=== PATIENT | female | born 1945 | race Caucasian/White ===

== ENCOUNTER 2020-04-15 09:50 | Outpatient (CLI) | payer MEDICARE, SELFPAY ==
[2020-04-15 10:34] LABS: Hemoglobin A1C 6.2 % (<5.7)
[2020-04-15 10:37] LABS: Blood Urea Nitrogen 13 mg/dL (7-17); Calcium 9.1 mg/dL (8.4-10.2); Carbon Dioxide 29 mmol/L (22-30); Chloride 105 mmol/L (98-107); Estimated Glomerular Filt Rate 54; Glucose 105 mg/dL (65-105); Potassium 4.4 mmol/L (3.4-5.0); Sodium 139 mmol/L (137-145)
== END 2020-04-15 09:51 | disposition home or self-care (01) ==
PROVIDERS: PCP Internal Medicine; Visit Provider Nurse Practitioner
DX: R73.03 Prediabetes (principal); E03.9 Hypothyroidism, unspecified
CPT/HCPCS: 36415; 80048; 83036; 84443

== ENCOUNTER 2020-05-13 14:37 | Outpatient (CLI) | payer MEDICARE, SELFPAY ==
--- NOTE | ~2020-05-13 | US_ITS ---
EXAMINATION: US soft tissue chest EXAM DATE: 05/13/2020 15:18 INDICATION: Left neck lump, palpable abnormality. TECHNIQUE: Multiple grayscale and Doppler images of the symptomatic left neck soft tissue region were obtained (by a technologist who performed the scan) and subsequently reviewed. There is no prior st udy for comparison. FINDINGS: No focal mass, or abscess is identified in the left neck supraclavicular region aside from a small ly mph node measuring 1.2 x 0.6 x 1.0 cm, with expected fatty hilum, is likely reactive. IMPRESSION: Unremarkable ultrasound exam. Reviewed, dictated and finalized at location A.
== END 2020-05-13 14:38 | disposition home or self-care (01) ==
LOC: ANHIMG 14:44
PROVIDERS: PCP Internal Medicine; Visit Provider Nurse Practitioner
DX: R22.2 Localized swelling, mass and lump, trunk (principal)
CPT/HCPCS: 76604

== ENCOUNTER 2020-11-15 08:15 | Outpatient (CLI) | payer MEDICARE, SELFPAY ==
[2020-11-15 09:11] LABS: Alanine Aminotransferase 29 U/L (4-35); Albumin Level 3.9 g/dL (3.5-5.1); Alkaline Phosphatase 70 U/L (38-126); Anion Gap 8 mmol/L (8-16); Aspartate Amino Transferase 28 U/L (14-36); Bilirubin,Total 0.5 mg/dL (0.2-1.3); Blood Urea Nitrogen 21 mg/dL (7-17); Calcium 8.7 mg/dL (8.4-10.2); Carbon Dioxide 28 mmol/L (22-30); Chloride 104 mmol/L (98-107); Cholesterol 191 mg/dL (0-200); Estimated Glomerular Filt Rate 49; Glucose 102 mg/dL (65-105); HDL Direct 39 mg/dL; Potassium 4.1 mmol/L (3.4-5.0); Sodium 140 mmol/L (137-145); Triglycerides 159 mg/dL (<150)
[2020-11-15 09:21] LABS: LDL Cholesterol Direct 128 mg/dL
[2020-11-15 10:33] LABS: Vitamin D 25 Hydroxy 22.3 ng/mL
== END 2020-11-15 08:16 | disposition home or self-care (01) ==
PROVIDERS: PCP Internal Medicine; Visit Provider Nurse Practitioner
DX: E03.9 Hypothyroidism, unspecified (principal); R73.03 Prediabetes; E78.5 Hyperlipidemia, unspecified; E55.9 Vitamin D deficiency, unspecified
CPT/HCPCS: 36415; 80053; 80061; 82306; 83036; 84443

== ENCOUNTER 2021-06-13 09:03 | Outpatient (CLI) | payer MEDICARE, SELFPAY ==
[2021-06-13 09:46] LABS: Basophils Percent Auto 0.4 % (0.2-1.2); Eosinophils Absolute Auto 0.2 K/mm3 (0-0.3); Hematocrit 43.2 % (37.0-47.0); Hemoglobin 13.7 g/dL (12.0-15.0); Immature Granulocyte Absolute 0.03 K/mm3 (0.00-0.031); Immature Granulocyte Percent A 0.4 % (0-0.5); Lymphocytes Absolute Auto 2.89 K/mm3 (0.9-3.2); Lymphocytes Percent Auto 33.9 % (18.3-44.2); Mean Corpuscular HGB Conc 31.7 g/dl (32-36); Mean Corpuscular Hemoglobin 28.4 pg (26-34); Mean Corpuscular Volume 89.6 fl (80-100); Monocytes Absolute Auto 0.5 K/mm3 (0.1-0.6); Monocytes Percent Auto 6.1 % (2.6-8.5); Neutrophils Absolute Auto 4.9 K/mm3 (1.3-6.7); Neutrophils Percent Auto 57.2 % (45.5-73.1); Platelet Count Result 242 k/mm3 (150-375); Red Blood Count 4.82 M/mm3 (4.2-5.4); Red Cell Distribution Width 14.3 % (11.5-14.5); White Blood Count 8.5 K/mm3 (4.5-10.0)
[2021-06-13 11:08] LABS: Hemoglobin A1C 6.2 % (<5.7)
[2021-06-13 11:09] LABS: Anion Gap 10 mmol/L (8-16); Blood Urea Nitrogen 13 mg/dL (7-17); Calcium 9.4 mg/dL (8.4-10.2); Carbon Dioxide 28 mmol/L (22-30); Chloride 100 mmol/L (98-107); Cholesterol 211 mg/dL (0-200); Estimated Glomerular Filt Rate > 60; Glucose 104 mg/dL (65-110); HDL Direct 43 mg/dL; Potassium 3.9 mmol/L (3.4-5.0); Sodium 138 mmol/L (137-145); Triglycerides 151 mg/dL (<150)
[2021-06-13 11:19] LABS: LDL Cholesterol Direct 122 mg/dL
== END 2021-06-13 09:04 | disposition home or self-care (01) ==
PROVIDERS: PCP Internal Medicine; Visit Provider Nurse Practitioner
DX: R73.03 Prediabetes (principal); E03.9 Hypothyroidism, unspecified; E78.5 Hyperlipidemia, unspecified; D72.829 Elevated white blood cell count, unspecified
CPT/HCPCS: 36415; 80048; 80061; 83036; 84443; 85025

== ENCOUNTER 2021-06-27 09:25 | Outpatient (CLI) | payer MEDICARE, SELFPAY ==
--- NOTE | ~2021-06-27 | US_ITS ---
EXAMINATION: US abdomen complete DATE: 06/27/2021 09:55 INDICATION: Unspecified abdominal pain TECHNIQUE: Multiple grayscale and Doppler ultrasound images of the abdomen were obtained. COMPARISON: 02/01/2009 FINDINGS: Bowel gas obscures visualization of the pancreas. The visualized portions of the pancreas a re unremarkable. The liver demonstrates increased echogenicity, heterogenous echotexture, and decreas ed through transmission. No surface nodularity. Normal hepatopetal flow in the main portal vein. Ston es are present in the nondistended gallbladder. There is no gallbladder wall thickening or pericholec ystic fluid. The normal common bile duct measures 4 mm. There was no sonographic Martinez sign. The vis ualized portions of the aorta and inferior vena cava are normal. The right kidney measures 10.1 x 4.4 x 4.8 cm. The left kidney measures 10.4 x 5.2 x 4.7 cm. The kidn eys demonstrate normal parenchymal echogenicity. There is no hydronephrosis. The spleen measures 9.2 cm. And contains multiple calcifications, likely old granulomatous disease. IMPRESSION: 1. Cholelithiasis without evidence of cholecystitis. 2. Diffuse hepatic steatosis. Reviewed, dictated and finalized at location B.
== END 2021-06-27 09:26 | disposition home or self-care (01) ==
LOC: ANHIMG 09:27
PROVIDERS: PCP Internal Medicine; Visit Provider Nurse Practitioner
DX: R10.9 Unspecified abdominal pain (principal); K80.20 Calculus of gallbladder without cholecystitis without obstruction; K76.0 Fatty (change of) liver, not elsewhere classified
CPT/HCPCS: 76700

== ENCOUNTER 2021-07-12 00:26 | Day surgery (SDC) | payer MEDICARE, SELFPAY ==
[2021-06-22 14:20] VITALS: BMI 35.3
[2021-07-12 09:33] VITALS: BP 167/91; PULSE 93; RESP 18; TEMP 35.9; O2SAT 99; BMI 34.7
--- NOTE | 2021-07-12 09:42 | WPDANESEPPF ---
Anes - Initial Pre Proc Eval Procedure: Operation Date: 07/12/21 10:00 Proposed Procedures p Screening Colonoscopy - Kenney Erwin MD Date/Time: 07/12/21 09:42 Surgeon: Kenney Erwin MD Pre Op Diagnosis: neoplasm screening Patient Data Age: 75 Gender: F Height: 1.57 m Weight: 86.2 kg Last Vital Signs Temp 35.9 C L 07/12/21 09:33 Pulse 93 07/12/21 09:33 Resp 18 07/12/21 09:33 BP 167/91 H 07/12/21 09:33 Pulse Ox 99 07/12/21 09:33 Allergies Allergy/AdvReac Type Severity Reaction Status Date / Time No Known Allergies Allergy Verified 07/12/21 09:32 Home Medications Medication Instructions Recorded Confirmed Type diltiazem HCl 60 mg 60 mg PO Q12H 12/08/19 06/22/21 History capsule,extended release 12 hr rivaroxaban 20 mg tablet 20 mg PO DAILY 12/08/19 06/22/21 History levothyroxine 100 mcg tablet See Rx Instructions .ROUTE 03/29/21 06/22/21 Rx .COMPLEX #90 tablet cholecalciferol (vitamin D3) 50 50 mcg PO DAILY 05/29/21 06/22/21 History mcg (2,000 unit) capsule Patient hx anesthesia problems: none Family hx anesthesia problems: none PMFSH Past Medical History Medical History Adult hypothyroidism Atrial fibrillation Capsular contracture of breast implant, initial encounter Hx of [facility] use of blood thinners Hyperlipidemia, unspecified Hypersomnia ILD (interstitial lung disease) Lump in chest Need for vaccination with 13-polyvalent pneumococcal conjugate vaccine On ocean transportation intermediary drug therapy RD (obstructive sleep apnea) Pacemaker Postmenopausal Pre-diabetes Pulmonary infiltrates Screening for breast cancer Sick sinus syndrome Statin intolerance Surgical History Surgical History History of bilateral breast implants Family History Family History Mother Diabetes mellitus Family history of osteoporosis Family history of chronic obstructive pulmonary disease Family history of diabetes mellitus in first degree relative Father Cerebrovascular accident Family history of Hodgkin's lymphoma Sibling Family history of malignant neoplasm of breast Family history of malignant neoplasm Grandparent Family history of Parkinson's disease Social History Social History (Updated 05/29/21 @ 12:42 by Eneida Zuñiga MA) Smoking status: Never smoker Second hand tobacco smoke exposure: Yes Alcohol intake: current Alcohol use details: Social Substance use type: does not use Gender identity (if verbalized by the patient): Female Anes - Eval Final PreProcedure Day of Procedure 07/12/21 09:42 Patient weight: obese Heart: regular rate and rhythm Lungs: clear to auscultation and normal air movement Airway: Mallampati scale class II Neurological: alert and oriented Last oral intake: >/= 8 hours ASA classification: III Emergent: no Anesthetic plan: proceed Anesthesia type and monitoring: general GIVS Informed Consent: The patient's anesthetic plan and its attendant risks and benefits were discussed with the patient/family/POA. Questions were solicited and answers provided to the satisfaction of the patient/family/POA.
[2021-07-12] MEDS: LACTATED RINGERS 1,000 ML 150 ML IV CONT (09:50)
--- NOTE | 2021-07-12 10:45 | PM.HPGS ---
History of Present Illness History of Present Illness Consent: Risks, benefits, and alternatives have been discussed and questions answered. Patient agrees to proceed with procedure. Chief complaint: neoplasm screening Narrative: Thelma Lobo is a 75 year old female with last colonoscopy 10 years ago. Review of Systems Constitutional: Constitutional: Denies headache(s) and Denies weakness Eyes: Eyes: Denies blurry vision ENT: Reports Normal hearing present, Denies headache(s) and Denies neck pain Cardiovascular: Cardiovascular: Denies chest pain and Denies dyspnea Respiratory: Respiratory: Denies dyspnea Gastrointestinal: Gastrointestinal: Reports no additional gastrointestinal complaints Genitourinary: Genitourinary: Denies dysuria Musculoskeletal: Musculoskeletal: Denies neck pain Integumentary/Breasts: Skin/Breast: Denies dry skin Neurologic: Reports Normal hearing present, Denies headache(s) and Denies weakness Psychiatric: Psychiatric: Denies anxiety Endocrine: Endocrine: Denies change in body appearance Hematologic/Lymphatic: Hematologic/Lymphatic: Denies easy bleeding Allergic/Immunologic: Allergic/Immunologic: Denies urticaria PMFSH Past Medical History Medical History Adult hypothyroidism Atrial fibrillation Capsular contracture of breast implant, initial encounter 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 Hyperlipidemia, unspecified Hypersomnia ILD (interstitial lung disease) Lump in chest Need for vaccination with 13-polyvalent pneumococcal conjugate vaccine On senior living drug therapy RD (obstructive sleep apnea) Pacemaker Postmenopausal Pre-diabetes Pulmonary infiltrates Screening for breast cancer Sick sinus syndrome Statin intolerance Surgical History Surgical History History of bilateral breast implants Family History Family History Mother Diabetes mellitus Family history of osteoporosis Family history of chronic obstructive pulmonary disease Family history of diabetes mellitus in first degree relative Father Cerebrovascular accident Family history of Hodgkin's lymphoma Sibling Family history of malignant neoplasm of breast Family history of malignant neoplasm Grandparent Family history of Parkinson's disease Social History Social History (Updated 05/29/21 @ 12:42 by Eneida Zuñiga MA) Smoking status: Never smoker Second hand tobacco smoke exposure: Yes Alcohol intake: current Alcohol use details: Social Substance use type: does not use Gender identity (if verbalized by the patient): Female Meds Home Medications and Allergies Home Medications Medication Instructions Recorded Confirmed Type diltiazem HCl 60 mg 60 mg PO Q12H 12/08/19 06/22/21 History capsule,extended release 12 hr rivaroxaban 20 mg tablet 20 mg PO DAILY 12/08/19 06/22/21 History levothyroxine 100 mcg tablet See Rx Instructions .ROUTE 03/29/21 06/22/21 Rx .COMPLEX #90 tablet cholecalciferol (vitamin D3) 50 50 mcg PO DAILY 05/29/21 06/22/21 History mcg (2,000 unit) capsule Allergies Allergy/AdvReac Type Severity Reaction Status Date / Time No Known Allergies Allergy Verified 07/12/21 09:32 Vital Signs Vital Signs - 24 hr 07/12/21 09:33 Temperature 96.7 F L Pulse Rate 93 Respiratory Rate 18 Blood Pressure 167/91 H Pulse Oximetry 99 Exam Const: General: comfortable and no acute distress HENMT: General nose exam: Normal nares present Eyes: General: appearance normal, both eyes and all related structures Neck: Neck: no JVD Resp: Auscultation: clear to auscultation bilaterally Cardio: Rate: regular rate Rhythm: regular rhythm GI: Inspection: non-distended GI Palp: Yes Soft to palpation Skin: General skin exam: normal color Neuro: General: gait normal Speech
[2021-07-12 11:06] VITALS: BP 114/64; PULSE 82; RESP 13; O2SAT 95
[2021-07-12 11:16] VITALS: BP 118/71; PULSE 96; RESP 15; O2SAT 96
[2021-07-12 11:26] VITALS: BP 127/81; PULSE 97; RESP 15; O2SAT 96
== END 2021-07-12 11:38 | disposition home or self-care (01) ==
PROVIDERS: PCP Internal Medicine; Visit Provider Internal Medicine Gastroenterology
PROC: 0DJD8ZZ Inspection of Lower Intestinal Tract, Via Natural or Artificial Opening Endoscopic (ICD-10-PCS; CPT 45378; principal; 2021-07-12 10:00)
DX: Z12.11 Encounter for screening for malignant neoplasm of colon (principal); D12.4 Benign neoplasm of descending colon; K64.8 Other hemorrhoids; I48.91 Unspecified atrial fibrillation; E03.9 Hypothyroidism, unspecified; E78.5 Hyperlipidemia, unspecified; J84.9 Interstitial pulmonary disease, unspecified; G47.33 Obstructive sleep apnea (adult) (pediatric); Z95.0 Presence of cardiac pacemaker; R73.03 Prediabetes; Z79.01 Long term (current) use of anticoagulants; E66.9 Obesity, unspecified; Z68.34 Body mass index [BMI] 34.0-34.9, adult
CPT/HCPCS: 45385; 88305; J2704; J7120

== ENCOUNTER 2021-07-31 09:43 | Outpatient (CLI) | payer MEDICARE, SELFPAY ==
--- NOTE | ~2021-07-31 | DEXA_ITS ---
Bone Density Report Name: Thelma Lobo Age: 75 Sex: Female Ethnicity: White Date of : 1945 Indication: postmenopausal; height loss; Referring Provider: Misa Godwin Study: Bone densitometry was performed. Exam Date: July 31, 2021 Accession number: [id number] Bone Density: Region BMD T-score Z-score Classification AP Spine (L1, L2) 1.231 2.3 4.5 Normal Femoral Neck (Left) 0.814 -0.3 1.7 Normal Total Hip (Left) 1.005 0.5 2.3 Normal Total Hip Bilateral Avg 1.006 0.5 2.3 Normal Femoral Neck (Right) 0.777 -0.6 1.4 Normal Total Hip (Right) 1.005 0.5 2.3 Normal World Health Organization criteria for BMD impression classify patients as: Normal (T-score at or above -1.0), Osteopenia (T-score between -1.0 and -2.5), or Osteoporosis (T-score at or below -2.5). 10-year Fracture Risk: FRAX not reported because: All T-scores for Spine Total, Hip Total, Femoral Neck at or above -1.0 Previous Exams: Region Exam Age BMD T-score BMD Change BMD Change Date g/cm2 vs Baseline vs Previous AP Spine(L1, L2) 07/31/2021 75 1.231 2.3 0.078(6.8%)# 0.078(6.8%)# 04/09/2008 62 1.153 1.6 Total Hip(Left) 07/31/2021 75 1.005 0.5 0.055(5.8%)# 0.055(5.8%)# 04/09/2008 62 0.950 0.1 Total Hip(Right) 07/31/2021 75 1.005 0.5 0.031(3.2%)# 0.031(3.2%)# 04/09/2008 62 0.974 0.3 *Denotes significance at 95% confidence level, LSC for AP Spine = 0.022 g/cm2, LSC for Total Hip = 0.027 g/cm2 Clinical Information Provided by Patient: Has used the following medications: Vitamin D Patient maximum height was 62 Menopause Age: 55 No regular weight bearing exercise Drinks caffeinated beverages Onset of menses at age 13 Number of children 3 Impression: The patient has normal bone mass. No significant bone loss was observed. Discussion: BONE DENSITY IS ABOVE THE MINIMUM DESIRABLE LEVEL AT ALL SKELETAL SITES TESTED. This patient?s bone mineral density is above the minimum desirable level (T-score -1.0 or better) at all sites measured. The patient should follow a healthful lifestyle (good nutrition with adequate calcium and vitamin D, and appropriate weight-bearing exercise). Follow-Up: Consider repeating this study in 5 years or sooner if there is some new clinical indication. Reported by: CAROLYN on 07/31/2021 10:29:00 AM. Reviewed, dictated and finalized at location AKin HERRON
--- NOTE | ~2021-07-31 | MM_ITS ---
EXAMINATION: MM screening cristina BI w yulia HISTORY: Screening. Previous breast implant removal 2 years ago. TECHNIQUE: Craniocaudal and mediolateral oblique 3-D tomosynthesis images were obtained and synthetic 2-D images were generated. CAD analysis was submitted and interpreted. COMPARISON: No prior mammogram is available for comparison at this institution. BREAST PARENCHYMAL COMPOSITION: There are scattered areas of fibroglandular density. FINDINGS: There is distortion of both breasts, likely from previous implant removal. There is no evid ence of suspicious mass, calcification, or architectural distortion to suggest malignancy in either b reast. There has been no suspicious interval change. IMPRESSION: 1. No mammographic evidence of malignancy. 2. Recommend routine screening mammography in one year. BI-RADS Category 2: Benign finding(s). Reviewed, dictated and finalized at location A.
== END 2021-07-31 09:44 | disposition home or self-care (01) ==
PROVIDERS: PCP Internal Medicine; Visit Provider Nurse Practitioner
DX: Z12.31 Encounter for screening mammogram for malignant neoplasm of breast (principal); Z78.0 Asymptomatic menopausal state
CPT/HCPCS: 77063; 77067; 77080

== ENCOUNTER 2021-12-08 09:30 | Outpatient (CLI) | payer MEDICARE, SELFPAY ==
[2021-12-08 10:05] LABS: Alanine Aminotransferase 36 U/L (4-35); Albumin Level 4.3 g/dL (3.5-5.1); Alkaline Phosphatase 86 U/L (38-126); Anion Gap 7 mmol/L (8-16); Aspartate Amino Transferase 39 U/L (14-36); Bilirubin,Total 0.5 mg/dL (0.2-1.3); Blood Urea Nitrogen 13 mg/dL (7-17); Calcium 9.5 mg/dL (8.4-10.2); Carbon Dioxide 29 mmol/L (22-30); Chloride 104 mmol/L (98-107); Cholesterol 209 mg/dL (0-200); Estimated Glomerular Filt Rate 54; Glucose 112 mg/dL (65-110); HDL Direct 39 mg/dL; Potassium 3.9 mmol/L (3.4-5.0); Sodium 140 mmol/L (137-145); Triglycerides 178 mg/dL (<150)
[2021-12-08 10:16] LABS: LDL Cholesterol Direct 134 mg/dL
== END 2021-12-08 09:31 | disposition home or self-care (01) ==
LOC: ANHLAB 09:32
PROVIDERS: PCP Internal Medicine; Visit Provider Nurse Practitioner
DX: E03.9 Hypothyroidism, unspecified (principal); R73.03 Prediabetes; E78.5 Hyperlipidemia, unspecified
CPT/HCPCS: 36415; 80053; 80061; 83036; 84443

== ENCOUNTER 2022-06-13 08:41 | Outpatient (CLI) | payer MEDICARE, SELFPAY ==
[2022-06-13 09:40] LABS: Alanine Aminotransferase 27 U/L (6-35); Albumin Level 4.2 g/dL (3.5-5.1); Alkaline Phosphatase 74 U/L (38-126); Anion Gap 8 mmol/L (8-16); Aspartate Amino Transferase 30 U/L (14-36); Bilirubin,Total 0.5 mg/dL (0.2-1.3); Blood Urea Nitrogen 16 mg/dL (7-17); Calcium 9.1 mg/dL (8.4-10.2); Carbon Dioxide 31 mmol/L (22-30); Chloride 101 mmol/L (98-107); Estimated Glomerular Filt Rate 54; Glucose 96 mg/dL (65-110); Potassium 4.2 mmol/L (3.4-5.0); Sodium 140 mmol/L (137-145)
[2022-06-13 09:48] LABS: Hemoglobin A1C 5.8 % (<5.7)
== END 2022-06-13 08:42 | disposition home or self-care (01) ==
LOC: ANHLAB 08:45
PROVIDERS: PCP Internal Medicine; Visit Provider Internal Medicine
DX: R73.03 Prediabetes (principal); E78.5 Hyperlipidemia, unspecified; I48.91 Unspecified atrial fibrillation; E03.9 Hypothyroidism, unspecified
CPT/HCPCS: 36415; 80053; 83036; 84443

== ENCOUNTER 2022-10-25 01:58 | Day surgery (SDC) | payer MEDICARE, SELFPAY ==
[2022-10-09 10:58] VITALS: BMI 33.9
--- NOTE | 2022-10-09 11:22 | PC.NURSE ---
Report to the Outpatient Waiting Room, entrance under the green pavilion located off [facility], at time ___0700____ on date ___10/25/22____. Planned Procedure Time: ___0900 . Time changes happen often and if your time is changed the preop area will call you the afternoon before. - You and your visitor will be asked to self-screen and do not enter if you have any COVID symptoms. - Only one visitor is requested with a max of two and NO children visitors are allowed at this time. - The patient visitor may be requested to leave or wait in car when not with patient due to distancing restrictions. - A mask is optional within the hospital. Patients may have clear liquids (water, carbonated beverages, clear teas, apple juice) until 3 hours prior to surgery (0600 AM) with a maximum of 20 ounces. - No food from midnight until time of surgery - Infants may have breast milk until 4 hours before surgery, infant formula 6 hours prior to surgery. - Children will be allowed to drink immediately following surgery. If applicable, please bring a bottle or sippy cup to assist with drinking. Juice, water, soda, and popsicles are readily available. For infants on formula, please bring formula the day of surgery. Pacifiers are allowed. Take the following medications with a SIP of water the morning of surgery: _ATENOLOL, DILTIAZEM, LEVOTHYROXINE_ Medications to discontinue _XARELTO PER DR. JARQUIN'S INSTRUCTIONS_ Date to take last dose Please no make-up, nail [place] citizen, hairspray, perfume, deodorant, or body powder the day of surgery. No jewelry (including any body piercings) or valuables the day of surgery, leave them at home. Please take a shower or bath the night before, or the morning of, surgery with an antibacterial soap. Wear comfortable, loose fitting clothing. Children are encouraged to wear pajamas. - Jewelry must be removed prior to entering the operating room. Rings and piercings that are not removed may be cut off. - The hospital will not accept responsibility for valuables. - Please leave all valuables, including medications, at home the day of surgery. If you are going home after surgery, a licensed shuttle driver must drive you home. - NO public transportation without another adult if you receive anesthesia. - We recommend that an adult stay with you for 24 hours following discharge. - We also recommend that you do not drive, make important decision, drink alcoholic beverages, or take any drugs that were not prescribed by your health care provider for at least 24 hours after your discharge time. For Pediatric surgeries, we recommend two adults accompany the child home. Follow any additional instructions given to you from your surgeon. If you or anyone in your household have experienced Covid symptoms in the past week, please notify your surgeon or the nurse liaison at the phone number below for possible testing. Telephone instructions given to ____PT and asked if any additional questions and then verbalized understanding. Patient advised to call surgeon office or pre surgery nurse liaison [phone] if any additional questions.
--- NOTE | 2022-10-24 14:40 | PM.IMHP ---
H&P: HPI History of Present Illness Date/Time: 10/24/22 14:40 76-year-old female presents for removal of cervical polyp. This was noted on exam, was followed up with ultrasound which also revealed thickened endometrial cavity. She has had no bleeding or other symptomatology. No other issues or concerns at this time from a gynecologic standpoint. She has received cardiology clearance and given information on medications and when to stop/restart after procedure. Chief Complaint: 1. Endocervical polyp 2. 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 Hyperlipidemia, unspecified Hypersomnia ILD (interstitial lung disease) Lump in chest Need for vaccination with 13-polyvalent pneumococcal conjugate vaccine On data consultant drug therapy RD (obstructive sleep apnea) Pacemaker (~06/21/15) Postmenopausal Pre-diabetes Pulmonary infiltrates Screening for breast cancer Sick sinus syndrome Statin intolerance Surgical History Surgical History History of bilateral breast implants (~1974) History of cataract surgery History of radiofrequency ablation (RFA) procedure for cardiac arrhythmia Family History Family History Mother Diabetes mellitus Family history of osteoporosis Family history of chronic obstructive pulmonary disease Family history of diabetes mellitus in first degree relative Hypertension Father Cerebrovascular accident Family history of Hodgkin's lymphoma Sibling Family history of malignant neoplasm of breast sister--had 2 times, recurrent breast cancer Family history of malignant neoplasm Grandparent Family history of Parkinson's disease Social History Social History Smoking status: Never smoker Second hand tobacco smoke exposure: No Alcohol intake: current Alcohol use details: STATES MAYBE 2/MONTH IF THAT Substance use: never Substance use type: does not use Living arrangements: with family Additional living arrangements comments: Gender identity (if verbalized by the patient): Female Spiritual care concerns: No Meds Home Medications and Allergies Home Medications Medication Instructions Recorded Confirmed Type diltiazem HCl 60 mg 60 mg PO Q12H 12/08/19 10/09/22 History capsule,extended release 12 hr rivaroxaban 20 mg tablet (Xarelto) 20 mg PO DAILY 12/08/19 10/09/22 History atenolol 25 mg tablet 25 mg PO DAILY 12/12/21 10/09/22 History cholecalciferol (vitamin D3) 125 125 mcg PO DAILY 12/12/21 10/09/22 History mcg (5,000 unit) capsule levothyroxine 100 mcg tablet See Rx Instructions .Route 09/24/22 10/09/22 Rx .COMPLEX #90 tabs Allergies Allergy/AdvReac Type Severity Reaction Status Date / Time No Known Allergies Allergy Verified 10/09/22 10:56 Exam Const: General: cooperative, healthy appearing and comfortable Resp: Effort & Inspection: normal respiratory effort Auscultation: clear to auscultation bilaterally Cardio: Rate: regular rate Rhythm: regular rhythm GI: Inspection: normal to inspection Auscultation: normal bowel sounds : External Female Exam: normal external appearance Speculum Exam - Vagina: normal appearance of the vagina Speculum Exam - Cervix: normal appearance of the cervix ( with polyp noted) Bimanual exam- vagi
[2022-10-25] MEDS: ACETAMINOPHEN 500 MG TABLET 1000 MG PO (07:00)
[2022-10-25] MEDS: LACTATED RINGERS 1,000 ML 30 ML IV CONT (07:00)
[2022-10-25 07:15] VITALS: BP 137/73; PULSE 69; RESP 16; TEMP 36.7; O2SAT 98
--- NOTE | 2022-10-25 07:21 | WPDANESEPPF ---
Anes - Initial Pre Proc Eval Procedure: Operation Date: 10/25/22 09:00 Proposed Procedures p Hysteroscopy Dilation and Curettage with Polypectomy - Blair Zarate MD Date/Time: 10/25/22 07:21 Surgeon: Blair Zarate MD Pre Op Diagnosis: cervical polyp Patient Data Age: 76 Gender: F Height: 1.57 m Weight: 84.09 kg Allergies Allergy/AdvReac Type Severity Reaction Status Date / Time No Known Allergies Allergy Verified 10/25/22 07:56 Home Medications Medication Instructions Recorded Confirmed Type diltiazem HCl 60 mg 60 mg PO Q12H 12/08/19 10/09/22 History capsule,extended release 12 hr rivaroxaban 20 mg tablet (Xarelto) 20 mg PO DAILY 12/08/19 10/09/22 History atenolol 25 mg tablet 25 mg PO DAILY 12/12/21 10/09/22 History cholecalciferol (vitamin D3) 125 125 mcg PO DAILY 12/12/21 10/09/22 History mcg (5,000 unit) capsule levothyroxine 100 mcg tablet See Rx Instructions .Route 09/24/22 10/09/22 Rx .COMPLEX #90 tabs Patient hx anesthesia problems: none Family hx anesthesia problems: none Results Review: All pre-operative results and documents have been reviewed as part of the pre-operative evaluation. 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 Hyperlipidemia, unspecified Hypersomnia ILD (interstitial lung disease) Lump in chest Need for vaccination with 13-polyvalent pneumococcal conjugate vaccine On tank terminal gauger drug therapy RD (obstructive sleep apnea) Pacemaker (~06/21/15) Postmenopausal Pre-diabetes Pulmonary infiltrates Screening for breast cancer Sick sinus syndrome Statin intolerance Surgical History Surgical History History of bilateral breast implants (~1974) History of cataract surgery History of radiofrequency ablation (RFA) procedure for cardiac arrhythmia Family History Family History Mother Diabetes mellitus Family history of osteoporosis Family history of chronic obstructive pulmonary disease Family history of diabetes mellitus in first degree relative Hypertension Father Cerebrovascular accident Family history of Hodgkin's lymphoma Sibling Family history of malignant neoplasm of breast sister--had 2 times, recurrent breast cancer Family history of malignant neoplasm Grandparent Family history of Parkinson's disease Social History Social History Smoking status: Never smoker Second hand tobacco smoke exposure: No Alcohol intake: current Alcohol use details: STATES MAYBE 2/MONTH IF THAT Substance use: never Substance use type: does not use Living arrangements: with family Additional living arrangements comments: Gender identity (if verbalized by the patient): Female Spiritual care concerns: No Anes - Eval Final PreProcedure Day of Procedure 10/25/22 07:21 Patient weight: obese Heart: regular rate and rhythm Lungs: clear to auscultation Airway: Mallampati scale class II Neurological: alert and oriented Last oral intake: >/= 8 hours ASA classification: III Emergent: no Anesthetic plan: proceed Anesthesia type and monitoring: general GIVS and standard monitoring Results Review: All pre-operative results and documents have been reviewed as part of the pre-operative evaluation. Informed Consent: The patient's anesthetic plan and its attendant risks and benefits were discussed with the patient/family/POA. Questions were solicited and answ
--- NOTE | 2022-10-25 08:01 | WPDHPUPDATE1 ---
History and Physical Update Update Date/Time: 10/25/22 08:01 History and Physical has been reviewed, including an updated exam of the patient. There are NO changes in the patient's condition. Risks, benefits, and alternatives have been discussed and questions answered. Patient agrees to proceed with procedure.
--- NOTE | 2022-10-25 09:25 | W.PM.PROC2 ---
Procedure Note - Detailed Date of Procedure 10/25/22 Pre-op Diagnosis 1. Ectocervical polyp 2. Endometrial hypertrophy Post-op Diagnosis Same (3. Endometrial polyp ) Procedure Performed 1. Hysteroscopy with uterine curettings 2. Endometrial polypectomy 3. Ectocervical polypectomy Surgeon Blair Zarate MD Anesthesia MAC Findings 1. Hysteroscopic exam revealed atrophic endometrial cavity with small polyp noted 2. Vaginal exam revealed polyp at the ectocervix Description of Procedure Patient was prepped and draped in usual manner for this procedure. Cervix was dilated to allow the hysteroscope to be placed in the endometrial cavity. Upon entry in the cavity polyp was noted and the MyoSure instrument we used to remove the polyp and to obtain a sampling throughout the cavity. The polyp forceps were then used to remove the ectocervical polyp without difficulty. There was no significant bleeding and patient was sent to the recovery room in stable condition. Estimated Blood Loss 10 Drains No Packing No Pathology Yes Complications No immediate complications Condition Stable Disposition PACU [facility] Billing Surgery - Charge Forward: Surgery Billing
[2022-10-25 09:30] VITALS: BP 114/65; PULSE 60; RESP 16; O2SAT 98
[2022-10-25 10:00] VITALS: BP 113/69; PULSE 64; RESP 16
[2022-10-25 10:15] VITALS: BP 123/62; PULSE 60; RESP 16
== END 2022-10-25 10:23 | disposition home or self-care (01) ==
PROVIDERS: PCP Internal Medicine; Visit Provider Obstetrics & Gynecology
PROC: 0U5B8ZZ Destruction of Endometrium, Via Natural or Artificial Opening Endoscopic (ICD-10-PCS; CPT 58563; principal; 2022-10-25 09:00)
DX: N84.1 Polyp of cervix uteri (principal); N84.0 Polyp of corpus uteri; I48.91 Unspecified atrial fibrillation; E78.5 Hyperlipidemia, unspecified; G47.33 Obstructive sleep apnea (adult) (pediatric); E03.9 Hypothyroidism, unspecified; Z95.0 Presence of cardiac pacemaker; Z79.01 Long term (current) use of anticoagulants; E66.9 Obesity, unspecified; Z68.35 Body mass index [BMI] 35.0-35.9, adult
CPT/HCPCS: 58558; 57500; 88305; A9270; J2704; J3010; J7030; J7120

== ENCOUNTER 2022-12-28 08:18 | Outpatient (CLI) | payer MEDICARE, SELFPAY ==
[2022-12-28 09:09] LABS: Alanine Aminotransferase 242 U/L (6-35); Albumin Level 4.3 g/dL (3.5-5.1); Alkaline Phosphatase 155 U/L (38-126); Anion Gap 7 mmol/L (8-16); Aspartate Amino Transferase 63 U/L (14-36); Bilirubin,Total 0.9 mg/dL (0.2-1.3); Blood Urea Nitrogen 19 mg/dL (7-17); Carbon Dioxide 31 mmol/L (22-30); Chloride 101 mmol/L (98-107); Estimated Glomerular Filt Rate 54; Glucose 90 mg/dL (65-110); Potassium 3.7 mmol/L (3.4-5.0); Sodium 139 mmol/L (137-145)
[2022-12-28 09:47] LABS: Hemoglobin A1C 5.8 % (<5.7)
== END 2022-12-28 08:19 | disposition home or self-care (01) ==
LOC: ANHLAB 08:20
PROVIDERS: PCP Internal Medicine; Visit Provider Nurse Practitioner
DX: E03.9 Hypothyroidism, unspecified (principal); R73.03 Prediabetes; Z79.899 Other long term (current) drug therapy
CPT/HCPCS: 36415; 80053; 83036; 84443

== ENCOUNTER 2022-12-29 07:23 | Outpatient (CLI) | payer MEDICARE, SELFPAY ==
[2022-12-29 09:46] LABS: Hepatitis B Surface Antigen Negative (Negative)
[2022-12-29 09:52] LABS: HAV RESULT Negative (Negative); Hepatitis B Core IgM Result Negative (Negative)
[2022-12-29 10:04] LABS: Hepatitis C Virus Antibody Negative (Negative)
== END 2022-12-29 07:24 | disposition home or self-care (01) ==
PROVIDERS: PCP Internal Medicine; Visit Provider Nurse Practitioner
DX: R10.9 Unspecified abdominal pain (principal); R74.8 Abnormal levels of other serum enzymes
CPT/HCPCS: 36415; 80074

== ENCOUNTER 2023-01-03 07:26 | Outpatient (CLI) | payer MEDICARE, SELFPAY ==
--- NOTE | ~2023-01-03 | US_ITS ---
Limited Abdominal Sonogram: Real-time sonographic imaging of the right upper quadrant was performed. Clinical History: Abnormal serum enzymes Findings: The liver appears echogenic, with no evidence of mass lesion or bile duct dilatation. Main portal vein demonstrates normal direction of flow. The gallbladder is well distended, and appears no rmal with no evidence of gallstone or wall thickening. The common bile duct measures 5 mm. The visua lized pancreas, aorta, and IVC are unremarkable. Impression: Diffuse fatty infiltration of liver. Reviewed, dictated and finalized at location M. Impression: Diffuse fatty infiltration of liver.
== END 2023-01-03 07:27 | disposition home or self-care (01) ==
PROVIDERS: PCP Internal Medicine; Visit Provider Nurse Practitioner
DX: R74.8 Abnormal levels of other serum enzymes (principal); K76.0 Fatty (change of) liver, not elsewhere classified
CPT/HCPCS: 76705

== ENCOUNTER 2023-01-10 08:23 | Outpatient (CLI) | payer MEDICARE, SELFPAY ==
[2023-01-10 09:52] LABS: Prothrombin Time 22.2 Seconds (11.1-14.7)
[2023-01-10 09:56] LABS: Alanine Aminotransferase 35 U/L (6-35); Albumin Level 4.3 g/dL (3.5-5.1); Alkaline Phosphatase 100 U/L (38-126); Aspartate Amino Transferase 34 U/L (14-36); Bilirubin,Total 0.7 mg/dL (0.2-1.3)
[2023-01-10 10:43] LABS: Iron 74 ug/dL (37-170)
[2023-01-10 11:04] LABS: Percent Iron Saturation 25 % (20-50)
[2023-01-13 12:00] LABS: Mitochondrial (M2) Ab (IgG) <=20.0 U (<=20.0)
[2023-01-13 20:21] LABS: GGT 131 U/L (3-65)
[2023-01-15 12:56] LABS: LKM 1 Antibody <=20.0 U (<=20.0)
[2023-01-15 17:06] LABS: Alpha Fetoprotein Tumor Marker 2.2 ng/mL (<6.1)
[2023-01-15 19:30] LABS: Alpha-1-Antitrypsin, QN 191 mg/dL (83-199); Ceruloplasmin 33 mg/dL (18-53)
[2023-01-16 12:38] LABS: Actin Antibody (IgG) <20 U (<20)
[2023-01-17 15:57] LABS: ALT 28 U/L (6-29); Alpha-2-Macroglobulin 180 mg/dL (106-279); Apolipoprotein A1 140 mg/dL (101-198); Fibrosis Score 0.34; Fibrosis Stage F1-F2; GGT 129 U/L (3-65); Haptoglobin 240 mg/dL (43-212); Necroinflammat Act Grade A0; Total Bilirubin 0.5 mg/dL (0.2-1.2)
== END 2023-01-10 08:24 | disposition home or self-care (01) ==
PROVIDERS: PCP Internal Medicine; Visit Provider Nurse Practitioner Family
DX: R91.8 Other nonspecific abnormal finding of lung field (principal); I49.5 Sick sinus syndrome; K76.0 Fatty (change of) liver, not elsewhere classified; R74.8 Abnormal levels of other serum enzymes
CPT/HCPCS: 36415; 80076; 81596; 82103; 82105; 82390; 82728; 82977; 83520; 83540; 83550; 85610; 86038; 86039; 86235; 86364; 86376

== ENCOUNTER 2023-07-10 08:02 | Outpatient (CLI) | payer MEDICARE, SELFPAY ==
[2023-07-10 08:38] LABS: Alanine Aminotransferase 26 U/L (6-35); Alkaline Phosphatase 67 U/L (38-126); Anion Gap 6 mmol/L (8-16); Aspartate Amino Transferase 31 U/L (14-36); Bilirubin,Total 0.6 mg/dL (0.2-1.3); Blood Urea Nitrogen 11 mg/dL (7-17); Calcium 8.9 mg/dL (8.4-10.2); Carbon Dioxide 31 mmol/L (22-30); Chloride 104 mmol/L (98-107); Estimated Glomerular Filt Rate > 60; Glucose 91 mg/dL (65-110); Sodium 141 mmol/L (137-145)
== END 2023-07-10 08:03 | disposition home or self-care (01) ==
LOC: ANHLAB 08:05
PROVIDERS: PCP Nurse Practitioner Family; Visit Provider Nurse Practitioner Family
DX: K76.0 Fatty (change of) liver, not elsewhere classified (principal); E78.5 Hyperlipidemia, unspecified; E03.9 Hypothyroidism, unspecified
CPT/HCPCS: 36415; 80053; 84443

== ENCOUNTER 2024-01-09 07:53 | Outpatient (CLI) | payer MEDICARE, SELFPAY ==
[2024-01-09 08:41] LABS: Basophils Percent Auto 0.4 % (0.2-1.2); Eosinophils Absolute Auto 0.2 K/mm3 (0-0.3); Hemoglobin 14.6 g/dL (12.0-15.0); Immature Granulocyte Absolute 0.03 K/mm3 (0.00-0.031); Immature Granulocyte Percent A 0.4 % (0-0.5); Lymphocytes Absolute Auto 2.63 K/mm3 (0.9-3.2); Lymphocytes Percent Auto 34.3 % (18.3-44.2); Mean Corpuscular HGB Conc 31.7 g/dl (32-36); Mean Corpuscular Hemoglobin 28.7 pg (26-34); Mean Corpuscular Volume 90.4 fl (80-100); Mean Platelet Volume 10.4 fl (7.4-10.4); Monocytes Absolute Auto 0.5 K/mm3 (0.1-0.6); Monocytes Percent Auto 6.1 % (2.6-8.5); Neutrophils Absolute Auto 4.4 K/mm3 (1.3-6.7); Neutrophils Percent Auto 56.8 % (45.5-73.1); Platelet Count Result 269 k/mm3 (150-375); Red Blood Count 5.09 M/mm3 (4.2-5.4); White Blood Count 7.7 K/mm3 (4.5-10.0)
[2024-01-09 08:58] LABS: Alanine Aminotransferase 29 U/L (6-35); Albumin Level 4.3 g/dL (3.5-5.1); Alkaline Phosphatase 79 U/L (38-126); Anion Gap 5 mmol/L (8-16); Aspartate Amino Transferase 38 U/L (14-36); Bilirubin,Total 0.8 mg/dL (0.2-1.3); Blood Urea Nitrogen 16 mg/dL (7-17); Calcium 9.1 mg/dL (8.4-10.2); Carbon Dioxide 29 mmol/L (22-30); Chloride 105 mmol/L (98-107); Cholesterol 214 mg/dL (0-200); Estimated Glomerular Filt Rate > 60; Glucose 101 mg/dL (65-110); HDL Direct 40 mg/dL; Potassium 4.1 mmol/L (3.4-5.0); Sodium 139 mmol/L (137-145); Triglycerides 149 mg/dL (<150)
[2024-01-09 09:10] LABS: LDL Cholesterol Direct 147 mg/dL
[2024-01-10 11:36] LABS: Hemoglobin A1C 6.3 % (<5.7)
== END 2024-01-09 07:54 | disposition home or self-care (01) ==
LOC: ANHLAB 07:56
PROVIDERS: PCP Nurse Practitioner Family; Visit Provider Nurse Practitioner Family
DX: E78.5 Hyperlipidemia, unspecified (principal); I48.91 Unspecified atrial fibrillation; E03.9 Hypothyroidism, unspecified; R73.03 Prediabetes; J84.9 Interstitial pulmonary disease, unspecified
CPT/HCPCS: 36415; 80053; 80061; 83036; 85025

== ENCOUNTER 2024-04-28 01:22 | Day surgery (SDC) | payer MEDICARE, SELFPAY ==
[2024-04-09 13:58] VITALS: BMI 35.4
--- NOTE | 2024-04-27 10:44 | SUR.PREOP ---
Spoke with Dr. Jenkins office staff again about CRMD form and she stated that Dr. Jenkins is in office, she is just waiting for him to sign off and she will get the CRMD form faxed over.
[2024-04-28 12:54] VITALS: BP 145/91; PULSE 63; RESP 16; TEMP 36.2; O2SAT 99
[2024-04-28] MEDS: LACTATED RINGERS 1,000 ML 150 ML IV CONT (13:04)
--- NOTE | 2024-04-28 13:13 | WPDANESEPPF ---
Anes - Initial Pre Proc Eval Procedure: Operation Date: 04/28/24 14:00 Proposed Procedures p Colonoscopy - Kenney Erwin MD s [facility] Hemorrhoid Treatment - Kenney Erwin MD Date/Time: 04/28/24 13:13 Surgeon: Kenney Erwin MD Pre Op Diagnosis: Hemorrhage of anus/rectum Patient Data Age: 78 Gender: F Height: 1.57 m Weight: 85.6 kg Last Vital Signs Temp 97.1 F L 04/28/24 12:54 Pulse 63 04/28/24 12:54 Resp 16 04/28/24 12:54 BP 145/91 H 04/28/24 12:54 Pulse Ox 99 04/28/24 12:54 O2 Del Method Room Air 04/28/24 12:54 Allergies Allergy/AdvReac Type Severity Reaction Status Date / Time No Known Allergies Allergy Verified 04/28/24 12:53 Home Medications Medication Instructions Recorded Confirmed Type cholecalciferol (vitamin D3) 125 125 mcg PO DAILY 12/12/21 04/09/24 History mcg (5,000 unit) capsule atenolol 25 mg tablet 50 mg PO DAILY 07/15/23 04/28/24 History polyethylene glycol 3350 17 17 g PO DAILY PRN Constipation 07/15/23 04/09/24 History gram/dose oral powder (Miralax) levothyroxine 100 mcg tablet See Rx Instructions .Route 03/13/24 04/28/24 Rx .COMPLEX #90 tabs Patient hx anesthesia problems: none Family hx anesthesia problems: none Results Review: All pre-operative results and documents have been reviewed as part of the pre-operative evaluation. 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 Hyperlipidemia, unspecified Hypersomnia ILD (interstitial lung disease) Lump in chest Need for vaccination with 13-polyvalent pneumococcal conjugate vaccine On retirement drug therapy RD (obstructive sleep apnea) declines usage Pacemaker (~06/21/15) Postmenopausal Pre-diabetes Pulmonary infiltrates Screening for breast cancer Sick sinus syndrome Statin intolerance Surgical History Surgical History H/O dilation and curettage History of bilateral breast implants (~1974) History of cataract surgery History of hysteroscopy (10/25/22) Hscope D&C / Endocervical polypectomy / Endometrial polypectomy History of radiofrequency ablation (RFA) procedure for cardiac arrhythmia Family History Family History Mother Diabetes mellitus Family history of osteoporosis Family history of chronic obstructive pulmonary disease Family history of diabetes mellitus in first degree relative Hypertension Father Cerebrovascular accident Family history of Hodgkin's lymphoma Sibling Family history of malignant neoplasm of breast sister--had 2 times, recurrent breast cancer Family history of malignant neoplasm Grandparent Family history of Parkinson's disease Social History Social History Smoking status: Never smoker Second hand tobacco smoke exposure: No Alcohol intake: current Drinks per week: 1 Alcohol use details: 1per month Substance use: never Substance use type: does not use Lack of Transportation: No Lack of Food: Never True Current Housing: I Have Housing Concerned About Future Housing: No Difficulty Paying Gas/Electric Bills: No Difficulty Paying for Meds: No Currently Unemployed: No Education: High School Diploma/GED Difficulty w/ Childcare or Family Care: No Living arrangements: with family Additional living arrangements comments: Occupation/Ed
--- NOTE | 2024-04-28 13:48 | PM.HPGS ---
History of Present Illness History of Present Illness Consent: Risks, benefits, and alternatives have been discussed and questions answered. Patient agrees to proceed with procedure. Chief complaint: Hemorrhage of anus/rectum Narrative: Thelma Lobo is a 78 year old female with intermittent rectal bleeding for few months, last colonoscopy 2020 with polyp and small size IH Review of Systems Review of Systems: All systems reviewed & are unremarkable except as noted in HPI and below PMFSH Past Medical History Medical History (Updated 03/10/24 @ 13:31 by JOSE Teran) Adult hypothyroidism Atrial fibrillation Bright red blood per rectum Capsular contracture of breast implant, initial encounter Encounter for Papanicolaou smear for cervical cancer screening History of breast implant removal (02/18/19) History of endometrial biopsy (03/18/09) postmenopausal bleeding History of sigmoidoscopy (~01/20/16) 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 Hx of [facility] use of blood thinners Hyperlipidemia, unspecified Hypersomnia ILD (interstitial lung disease) Lump in chest Need for vaccination with 13-polyvalent pneumococcal conjugate vaccine On [facility] drug therapy RD (obstructive sleep apnea) declines usage Pacemaker (~06/21/15) Postmenopausal Pre-diabetes Pulmonary infiltrates Screening for breast cancer Sick sinus syndrome Statin intolerance Surgical History Surgical History H/O dilation and curettage History of bilateral breast implants (~1974) History of cataract surgery History of hysteroscopy (10/25/22) Hscope D&C / Endocervical polypectomy / Endometrial polypectomy History of radiofrequency ablation (RFA) procedure for cardiac arrhythmia Family History Family History Mother Diabetes mellitus Family history of osteoporosis Family history of chronic obstructive pulmonary disease Family history of diabetes mellitus in first degree relative Hypertension Father Cerebrovascular accident Family history of Hodgkin's lymphoma Sibling Family history of malignant neoplasm of breast sister--had 2 times, recurrent breast cancer Family history of malignant neoplasm Grandparent Family history of Parkinson's disease Social History Social History Smoking status: Never smoker Second hand tobacco smoke exposure: No Alcohol intake: current Drinks per week: 1 Alcohol use details: 1per month Substance use: never Substance use type: does not use Lack of Transportation: No Lack of Food: Never True Current Housing: I Have Housing Concerned About Future Housing: No Difficulty Paying Gas/Electric Bills: No Difficulty Paying for Meds: No Currently Unemployed: No Education: High School Diploma/GED Difficulty w/ Childcare or Family Care: No Living arrangements: with family Additional living arrangements comments: Occupation/Education: retired Gender identity (if verbalized by the patient): Female Sexual Orientation (if Verbalized by the Patient): Straight or Heterosexual Spiritual care concerns: No Meds Home Medications and Allergies Home Medications Medication Instructions Recorded Confirmed Type cholecalciferol (vitamin D3) 125 125 mcg PO DAILY 12/12/21 04/09/24 History mcg (5,000 unit) capsule atenolol 25 mg tablet 50 mg PO DAILY 07/15/23 04/28/24 History polyethylene glycol 3350 17 17 g PO DAILY PRN Constipation 07/15/23 04/09/24 History gram/dose oral powder (Miralax) levothyroxine 100 mcg tablet See Rx Instructions .Route 03/13/24 04/28/24 Rx .COMPLEX #90 tabs Allergies Allergy/AdvReac Type Severity Reaction Status Date / Time No Known Allergies Allergy Verified 04/28/24 12:53 Vital Signs Vital Signs - 24 hr 04/28/24 12:54 Temperature 97.1 F L
--- NOTE | 2024-04-28 14:04 | W.PM.PROC2 ---
Procedure Note - Detailed Date of Procedure 04/28/24 Pre-op Diagnosis Hemorrhage of anus/rectum Post-op Diagnosis Same Procedure Performed irc of internal hemorrhoids Surgeon Kenney Erwin MD Anesthesia MAC (also had colonoscopy) Findings grade II internal hemorrhoids Description of Procedure using anoscope noted grade II internal hemorrhoids, no bleeding, no fissue. Then introduced IRC probe and hemorrhoids treated x7 at 1.5 seconds each time.
[2024-04-28 14:05] VITALS: BP 87/54; PULSE 60; RESP 16; O2SAT 96
[2024-04-28 14:15] VITALS: BP 98/60; PULSE 60; RESP 16; O2SAT 97
[2024-04-28 14:25] VITALS: BP 122/70; PULSE 64; RESP 16; O2SAT 97
== END 2024-04-28 14:46 | disposition home or self-care (01) ==
PROVIDERS: PCP Nurse Practitioner Family; Referring Provider Nurse Practitioner Family; Visit Provider Internal Medicine Gastroenterology
PROC: 0DJD8ZZ Inspection of Lower Intestinal Tract, Via Natural or Artificial Opening Endoscopic (ICD-10-PCS; CPT 45378; principal; 2024-04-28 14:00)
PROC: (CPT 46930; 2024-04-28 14:00)
DX: K62.5 Hemorrhage of anus and rectum (principal); K64.8 Other hemorrhoids; Z86.010 Personal history of colon polyps; E03.9 Hypothyroidism, unspecified; I48.91 Unspecified atrial fibrillation; G47.33 Obstructive sleep apnea (adult) (pediatric)
CPT/HCPCS: 45378; J2001; J2704; J7120

== ENCOUNTER 2024-05-06 07:50 | Outpatient (CLI) | payer MEDICARE, SELFPAY ==
[2024-05-06 08:27] LABS: Cholesterol 193 mg/dL (0-200); HDL Direct 38 mg/dL; Triglycerides 147 mg/dL (<150)
[2024-05-06 08:33] LABS: Hemoglobin A1C 6.2 % (<5.7)
[2024-05-06 08:38] LABS: LDL Cholesterol Direct 134 mg/dL
== END 2024-05-06 07:51 | disposition home or self-care (01) ==
LOC: ANHLAB 07:54
PROVIDERS: PCP Nurse Practitioner Family; Visit Provider Nurse Practitioner Family
DX: E03.9 Hypothyroidism, unspecified (principal); E78.5 Hyperlipidemia, unspecified; R73.03 Prediabetes; G47.33 Obstructive sleep apnea (adult) (pediatric); I48.91 Unspecified atrial fibrillation; K76.0 Fatty (change of) liver, not elsewhere classified
CPT/HCPCS: 36415; 80061; 83036; 84443

== ENCOUNTER 2024-05-26 16:11 | Outpatient (CLI) | payer MEDICARE, SELFPAY ==
--- NOTE | ~2024-05-26 | CT_ITS ---
EXAMINATION: CT brain wo con DATE: 05/26/2024 16:28 INDICATION: H53.19 - Other subjective visual disturbances . TECHNIQUE: Computed tomography (CT) of the head was performed without intravenous contrast. The mA wa s adjusted according to patient size. Iterative reconstruction technique was employed. The dose-lengt h product was 605.33 mGy-cm. COMPARISON: None. FINDINGS: No acute intracranial hemorrhage or extra-axial fluid collection. No hydrocephalus, mass, or herniation. No acute ischemic infarct. Unremarkable dural venous sinus attenuation. No acute osseous abnormality. The aerated spaces are clear. Mild atrophy and chronic white matter change. Atherosclerotic intracranial calcification. Bilateral l ens replacements. IMPRESSION: No acute intracranial process. Reviewed, dictated and finalized at location K.
== END 2024-05-26 16:12 | disposition home or self-care (01) ==
LOC: ANHIMG 16:15
PROVIDERS: PCP Nurse Practitioner Family; Visit Provider Nurse Practitioner Family
DX: H53.19 Other subjective visual disturbances (principal); R51.9 Headache, unspecified
CPT/HCPCS: 70450

== ENCOUNTER 2024-11-11 08:20 | Outpatient (CLI) | payer MEDICARE, SELFPAY ==
[2024-11-11 09:27] LABS: Basophils Percent Auto 0.5 % (0.2-1.2); Eosinophils Absolute Auto 0.1 K/mm3 (0-0.3); Eosinophils Percent Auto 1.5 % (0-4.4); Hematocrit 43.8 % (37.0-47.0); Hemoglobin 14.3 g/dL (12.0-15.0); Immature Granulocyte Absolute 0.02 K/mm3 (0.00-0.031); Immature Granulocyte Percent A 0.3 % (0-0.5); Lymphocytes Absolute Auto 2.66 K/mm3 (0.9-3.2); Lymphocytes Percent Auto 35.5 % (18.3-44.2); Mean Corpuscular HGB Conc 32.6 g/dl (32-36); Mean Corpuscular Hemoglobin 29.2 pg (26-34); Mean Corpuscular Volume 89.4 fl (80-100); Mean Platelet Volume 10.3 fl (7.4-10.4); Monocytes Absolute Auto 0.5 K/mm3 (0.1-0.6); Monocytes Percent Auto 6.1 % (2.6-8.5); Neutrophils Absolute Auto 4.2 K/mm3 (1.3-6.7); Neutrophils Percent Auto 56.1 % (45.5-73.1); Platelet Count Result 246 k/mm3 (150-375); Red Cell Distribution Width 14.1 % (11.5-14.5); White Blood Count 7.5 K/mm3 (4.5-10.0)
[2024-11-11 09:42] LABS: Alanine Aminotransferase 52 U/L (6-35); Albumin Level 4.1 g/dL (3.5-5.1); Alkaline Phosphatase 83 U/L (38-126); Anion Gap 6 mmol/L (4-12); Aspartate Amino Transferase 50 U/L (14-36); Bilirubin,Total 0.8 mg/dL (0.2-1.3); Blood Urea Nitrogen 17 mg/dL (7-17); Calcium 9.2 mg/dL (8.4-10.2); Carbon Dioxide 29 mmol/L (22-30); Chloride 103 mmol/L (98-107); Cholesterol 213 mg/dL (0-200); Estimated Glomerular Filt Rate > 60; Glucose 98 mg/dL (65-110); HDL Direct 43 mg/dL; Potassium 4.6 mmol/L (3.4-5.0); Sodium 138 mmol/L (137-145); Triglycerides 133 mg/dL (<150)
[2024-11-11 09:54] LABS: Hemoglobin A1C 6.4 % (<5.7)
[2024-11-11 09:59] LABS: LDL Cholesterol Direct 127 mg/dL
[2024-11-11 10:00] LABS: Free T4 Free Thyroxine 1.69 ng/dL (0.78-2.19)
[2024-11-11 10:13] LABS: Thyroid Stimulating Hormone 0.897 uIU/mL (0.465-4.680)
--- OUTSIDE RECORDS SUMMARY | 2024-11-12 21:44 | XMS_ITS | Encounter Summary ---
Author Organization [facility] Address [address] [place] [address] Care Team Providers Care Clinical Support Associate Name Role Phone Sher Nelson MD Primary Care Provider [phone] Encounter Details Date Type Department Care Team (Late st Contact Info) Description 04/22/2024 Lab Requisition [facility] - DermPath Lab [address] [facility] [place] [address] Letitia Mehta MD [address] [facility] [address] [place] [address] Social History Tobacco Use Types Packs/Day Years Used Date Smoking Tobacco: Never Assessed Sex and Gender Information Value Date Recorded Sex Assigned at Not on file Gender Identity Not on file Sexual Orientation Not on file documented as of this encounter Plan of Treatment Not on file documented as of this encounter Procedures Procedure Name Priority Date/Time Associated Diagnosis Comments DERMATOPATHOLOGY Routine 04/22/2024 10:5 2 AM CDT documented in this encounter Results * DERMATOPATHOLOGY (04/22/2024 10:52 AM CDT) Case Report Dermatopathology Report ? Case: [id number] ? Authorizing Provider: ??Letitia Mehta MD ? Collected: ? 04/22/2024 10:52 AM ? Ordering Location: ? [facility] - ??Received: ?04/24/2024 08:33 AM ? DermPath Lab ? Pathologist: ? Abril Lujan MD ? Specimen: ?Skin, left nasal crease ? 4 4:42 PM CDT DERMATOPATHOLOGY LABORATORY Final Diagnosis Specimen A. SKIN, left nasal crease: BASAL CELL CARCINOMA, NODULAR TYPE (C44.311) 4 4:42 PM CDT DERMATOPATHOLOGY LABORATORY Clinical History BCC vs SCC vs F. Papule 4 4:42 PM CDT DERMATOPATHOLOGY LABORATORY Gross Description Specimen A: Received is one formalin filled container labeled with the patient's name and designated left nasal crease. The specimen consists of a shave biopsy measuring 4x4x1 mm. Jar 0. 4 4:42 PM CDT DERMATOPATHOLOGY LABORATORY Microscopic Description Specimen A. SKIN, left nasal crease: Within the dermis there are aggregates of basaloid cells with a high nuclear to cytoplasmic ratio and peripheral palisading. 4 4:42 PM CDT DERMATOPATHOLOGY LABORATORY Disclaimer An external and internal positive and negative controls are appropriate for the histochemical, immunohistochemical and immunofluorescence stain(s) in this case (if any), except where stated explicitly. The performance characteristics of the stain(s) cited in this report were developed and its performance characteristic determined by the Dermatopathology Laboratory at [facility], directed by Dr. Selena [place]. These tests need not be, and therefore are not, approved by the [place] Food and Drug Administration. The tests are used for clinical purposes. Billing Codes Specimen Charges Stain Charges 72354 1 4 4:42 PM CDT DERMATOPATHOLOGY LABORATORY Embedded Images 4 4:42 PM CDT DERMATOPATHOLOGY LABORATORY Pathology/Cytolo gy TISSUE SPECIMEN FROM SKIN / Unknown 04/22/2024 10:52 AM CDT 04/24/2024 8:33 AM CDT Letitia Mehta MD LAB - PATHOLOGY/CYT OLOGY ORDERABLES DERMATOPATHOLOGY LABORATORY [facility] - Department of Dermatology [facility] [address] [place] [address], [address] [phone] documented in this encounter Visit Diagnoses Not on filedocumented in this encounter Care Teams Clinical Support Associate Relationship Specialty [place] [address] [address] PCP - General 10/31/22 documented as of this encounter
--- OUTSIDE RECORDS SUMMARY | 2024-11-12 21:44 | XMS_ITS | Encounter Summary ---
Author Organization [facility] Facility Care Team Providers Care Hot Head Machine Operator Name Role Phone Deven Brown MD Primary Care Provider [phone] Joby Lewis DO Primary Care Provider [phone] Sultan Corby Jenkins MD Unavailable [phone] Karma Nayak NP Primary Care Provider [phone] Encounter Details Date Type Department Care Team (Latest Contact Info) Description 07/01/2018 Orders Only [facility] CLINCONV Provider, MD [place] [address] [place] [address] Social History Tobacco Use Types Packs/Day Years Used Date Smoking Tobacco: Never Assessed Comments Unknown Sex and Gender Information Value Date Recorded Sex Assigned at Not on file 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 Historical Provider [facility] CARDIAC SERVICES PROCE DURES Final Result * CARDIOLOGY REPORT (07/01/2018 12:00 AM CDT) Anatomical Region Laterality Modality Other Narrative 07/01/2018 12:00 AM CDT Ordered by an unspecified provider. Historical Provider CV CARDIAC SERVICES PROCE DURES Final Result documented in this encounter Visit Diagnoses Not on filedocumented in this encounter Care Teams Hot Head Machine Operator Relationship Specialty Start Date End Date Deven Brown MD [address] [place] [address] PCP - General Internal Medicine 03/19/19 03/23/19 Joby Lewis DO [address] [place] [address] PCP - General Internal Medicine 03/24/19 10/01/23 Karma Nayak NP [address] [place] [address] PCP - General Nurse Practitioner 10/02/23 Sultan Corby Jenkins MD [address] [facility] [address] [place] [address] Cocktail Waitress Cardiology 05/29/19 documented as of this encounter
--- OUTSIDE RECORDS SUMMARY | 2024-11-12 21:44 | XMS_ITS | Encounter Summary ---
Author Organization [facility] Facility Care Team Providers Care Executive Team Leader Name Role Phone Deven Brown MD Primary Care Provider [phone] Joby Lewis DO Primary Care Provider [phone] Sultan Corby Jenkins MD Unavailable [phone] Karma Nayak NP Primary Care Provider [phone] Encounter Details Date Type Department Care Team (Latest Contact Info) Description 06/07/2016 Orders Only [facility] CLINCONV Provider, MD [place] [address] [place] [address] Social History Tobacco Use Types Packs/Day Years Used Date Smoking Tobacco: Never Assessed Comments Unknown Sex and Gender Information Value Date Recorded Sex Assigned at Not on file 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 us Historical Provider Final Res ult documented in this encounter Visit Diagnoses Not on filedocumented in this encounter Care Teams Executive Team Leader Relationship Specialty Start Date End Date Deven Brown MD [address] [place] [address] PCP - General Internal Medicine 03/19/19 03/23/19 Joby Lewis DO [address] [place] [address] PCP - General Internal Medicine 03/24/19 10/01/23 Karma Nayak NP [address] [place], [place] [id number] PCP - General Nurse Practitioner 10/02/23 Sultan Corby Jenkins MD [address] [facility] [address] [address] Curriculum Advisory Teacher Cardiology 05/29/19 documented as of this encounter
--- OUTSIDE RECORDS SUMMARY | 2024-11-12 21:44 | XMS_ITS | Clinical Summary ---
Author Organization [facility] Address [address] [place] [address] Care Team Providers Care Vp Director Of Creative Strategy Name Role Phone Sher Nelson MD Primary Care Provider [phone] Source Comments [facility],non-owned Affiliates and Associated Physician Practices is amultiple site organization consisting of ambulatory clinics and hospital sitesin [place], [place], [place]. This disclosure is being madepursuant to the Care Everywhere program and may not contain all information available regarding this patient. Last updated 18.[facility] Social History Tobacco Use Types Packs/Day Years Used Date Smoking Tobacco: Never Assessed Sex and Gender Information Value Date Recorded Sex Assigned at Not on file Gender Identity Not on file Sexual Orientation Not on file Plan of Treatment Health Maintenance Due Date Last Done Comments BONE DENSITY TESTING 1945 MEDICARE AWV ? 12 MONTHS 1945 HEPATITIS C SCREENING 11/14/1964 DTAP/TDAP/TD VACCINES (1 - Tdap) 1965 PNEUMOCOCCAL VACCINE 50+ (1 of 1 - PCV) 1996 ZOSTER VACCINE (1 of 2) 1996 Respiratory Syncytial Virus (RSV) Vaccine Pt: or over 60 yrs (1 - 1-dose 75+ series) 2021 COVID-19 VACCINE ( - 2023-2 5 season) 2024 INFLUENZA VACCINE (#1) 2024 DEPRESSION SCREENING 10/21/2024 HEPATITIS B VACCINE Aged Out No longe r eligible based on patient's age to complete this topic HIB VACCINE Aged Out No longer eligi ble based on patient's age to complete this topic HPV VACCINE Aged Out No longer eligi ble based on patient's age to complete this topic MENINGOCOCCAL (Group B) VACCINE Aged Out No longer eligible based on patient's age to complete this topic MENINGOCOCCAL VACCINE Aged Out No sylvia goldy eligible based on patient's age to complete this topic Care Teams Vp Director Of Creative Strategy Relationship Specialty [place] [address] [address] PCP - General 10/31/22
--- OUTSIDE RECORDS SUMMARY | 2024-11-12 21:44 | XMS_ITS | Encounter Summary ---
Author Organization [facility] Facility Care Team Providers Care Poultry Barn Manager Name Role Phone Deven Brown MD Primary Care Provider [phone] Joby Lewis DO Primary Care Provider [phone] Sultan Corby Jenkins MD Unavailable [phone] Karma Nayak NP Primary Care Provider Encounter Details Date Type Department Care Team (Latest Contact Info) Description 06/12/2016 Orders Only [facility] CLINCONV Provider, MD [place] [address] [place] [address] Social History Tobacco Use Types Packs/Day Years Used Date Smoking Tobacco: Never Assessed Comments Unknown Sex and Gender Information Value Date Recorded Sex Assigned at Not on file 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 Gender Identity Not on file Sexual Orientation Not on file documented as of this encounter Plan of Treatment Not on file documented as of this encounter Procedures Procedure Name Priority Date/Time Associated Diagnosis Comments CARDIOLOGY REPORT 06/14/2016 12: 00 AM CDT CARDIOLOGY REPORT 06/12/2016 12: 00 AM CDT CARDIOLOGY REPORT 06/12/2016 12: 00 AM CDT CARDIOLOGY REPORT 06/12/2016 12: 00 AM CDT CARDIOLOGY REPORT 06/12/2016 12: 00 AM CDT documented in this encounter Results * CARDIOLOGY REPORT (06/14/2016 12:00 AM CDT) Anatomical Region Laterality Modality Other Narrative 06/14/2016 12:00 AM CDT Ordered by an unspecified provider. [facility] Provider CV CARDIAC SERVICES PROCE DURES Final Result * CARDIOLOGY REPORT (06/12/2016 12:00 AM CDT) Anatomical Region Laterality Modality Other Narrative 06/12/2016 12:00 AM CDT Ordered by an unspecified provider. [facility] Provider CV CARDIAC SERVICES PROCE DURES Final Result * CARDIOLOGY REPORT (06/12/2016 12:00 AM CDT) Anatomical Region Laterality Modality Other Narrative 06/12/2016 12:00 AM CDT Ordered by an unspecified provider. [facility] Provider CV CARDIAC SERVICES PROCE DURES Final Result * CARDIOLOGY REPORT (06/12/2016 12:00 AM CDT) Anatomical Region Laterality Modality Other Narrative 06/12/2016 12:00 AM CDT Ordered by an unspecified provider. [facility] Provider CV CARDIAC SERVICES PROCE DURES Final Result * CARDIOLOGY REPORT (06/12/2016 12:00 AM CDT) Anatomical Region Laterality Modality Other Narrative 06/12/2016 12:00 AM CDT Ordered by an unspecified provider. [facility] Provider CV CARDIAC SERVICES PROCE DURES Final Result documented in this encounter Visit Diagnoses Not on filedocumented in this encounter Care Teams Poultry Barn Manager Relationship Specialty Start Date End Date Deven Brown MD [address] [place] [address] PCP - General Internal Medicine 03/19/19 03/23/19 Joby Lewis DO [address] [place] [address] PCP - General Internal Medicine 03/24/19 10/01/23 Karma Nayak NP [address] [place] [id number] PCP - General Nurse Practitioner 10/02/23 Sultan Corby Jenkins MD [address] [facility] [address] [address] Pairing Machine Operator Cardiology 05/29/19 documented as of this encounter
--- OUTSIDE RECORDS SUMMARY | 2024-11-12 21:44 | XMS_ITS | Referral Summary ---
Author Organization [facility] [place] [facility] Address [address] [place] [address] Care Team Providers Care Press Cleaner Name Role Phone Sultan Corby Jenkins MD Unavailable [phone] Karma Nayak NP Primary Care Provider [phone] Encounters Date Type Department Care Team Description 10/07/2024 3:15 PM CHILD CARE DIRECTOR Office Visit [facility] Medical [facility] [address] [place] [address] [address] Sultan Corby Jenkins MD Intermittent atrial fibrillation (CMS/HCC) (HCC) (Primary Dx) 09/02/2024 9:45 AM CHILD CARE DIRECTOR Ancillary Procedure [facility] [address] [place] [address] [address] Sinus node dysfunction (CMS/HCC) (HCC); Paroxysmal atrial fibrillation (CMS/HCC) (HCC); Pacemaker from Last 3 Months Allergies No known active allergies Medications levothyroxine (SYNTHROID, LEVOTHROID) 100 mcg tablet Take 1 tablet (100 mcg total) by mouth daily 0 9 Active vit D3-vit R-iqmatwshi-fhy s [phone] ddng-djd-se-mg tablet Take by mouth daily Active triamcinolone (KENALOG) 0.1 % cream APPLY TOPICALLY TO THE AFFECTED AREA ON ARMS TWICE DAILY NEEDED. 2 Active atenoloL (TENORMIN) 50 mg tablet TAKE 1 TABLET(50 MG) BY MOUTH DAILY 90 tablet 1 4 Active Active Problems Problem Noted Date Diagnosed Date half-way current use of anticoagulant 4 Sick sinus syndrome due to SA node dysfunction ( CMS/HCC) 02/11/2024 Morbid obesity 04/12/2020 Assessment & Plan (03/30/2021 7:03 PM CDT): Has been encouraged to lose weight. Assessment & Plan (11/29/2020 2:20 PM CHILD CARE DIRECTOR): Encouraged dieting weight loss Assessment & Plan (09/30/2020 2:36 PM CHILD CARE DIRECTOR): Lose Weight. Assessment & Plan (04/12/2020 2:48 PM CDT): Encouraged dieting weight loss Pacemaker 03/24/2019 Assessment & Plan (03/14/2021 2:30 PM CDT): Check today shows normal function. Underlying rhythm sinus. Essentially no pacing. Good lead function. Battery 3 years. Assessment & Plan (02/07/2021 1:29 PM CDT): Check today shows normal function. Underlying rhythm AFib. Although burden seems a little less over the last week. Normal lead function. Good better life. Assessment & Plan (11/29/2020 1:54 PM CHILD CARE DIRECTOR): Check today shows normal function. Underlying rhythm sinus. 50% a paced 12% V paced. Excellent lead function. Battery 3 years. Assessment & Plan (04/12/2020 2:41 PM CDT): Pacemaker check shows normal function. Underlying rhythm sinus bradycardia. 26% a paced 10% V paced excellent lead function. Battery 2.5 years Assessment & Plan (03/25/2020 12:57 PM CDT): Dr. Ludwig follows. Assessment & Plan (10/06/2019 2:47 PM CHILD CARE DIRECTOR): Check today shows normal function. Underlying rhythm sinus. 20% a paced 10% V paced. 1/3 AFib. Excellent lead function. No other a arrhythmias. Battery 3+ years Assessment & Plan (06/15/2019 9:17 PM CDT): Dr. Ludwig follows . Assessment & Plan (03/24/2019 2:42 PM CDT): Check today shows underlying rhythm sinus. 20% a paced 6% V paced. Good lead function. Better life for years. 32% AFib Paroxysmal atrial fibrillation ([facility]) 019 Assessment & Plan (03/14/2021 2:30 PM CDT): Trim line shows excellent reduction of AFib since PVI. Short brief episodes and almost none in the last 2-3 weeks Assessment & Plan (02/07/2021 1:30 PM CDT): PVI 01/31/2021. AFib wall shows episodes appear to be shorter. Again remains in early treatment zone where presence of AFib not predictable for long-term results. Continue Xarelto and diltiazem. Sotalol discontinued Assessment & Plan (04/12/2020 2:48 PM CDT): [place] unchanged at 32%. And monthly trend line not much change. I spent a total of 30 Face to Face minutes of which more than 50% of the time was spent in counseling and coordination of care. This time included: Again discussion of PVI. Potential risks. High likelihood of significant improvement if not complete success. Patient will talk to her a notify us if she wants to have PVI scheduled Assessment & Plan (03/25/2020 12:58 PM CDT): Sotalol to prevent the recurrence of the atrial fibrillation. Xarelto to prevent systemic embolization. Continues to have episodes of intermittent atrial fibrillation off and on. EKG today shows a normal sinus rhythm, normal QRS morphology. QTC 458. Assessment & Plan (10/06/2019 2:46 PM CHILD CARE DIRECTOR): [place] unchanged around 30%. Continue anticoagulation. Rates controlled again discussed PVI. Patient not interested. Continue sotalol. Can take additional diltiazem with RVR Assessment & Plan (06/15/2019 9:18 PM CDT): The T4, TSH and electrolytes have been normal. Sotalol 120 mg p.o. B.i.d.. Diltiazem 60 mg p.o. B.i.d.. Xarelto 20 mg daily to prevent systemic embolization. Assessment & Plan (03/24/2019 3:33 PM CDT): 32% with some episodes lasting more than 2 days. Mild much change from check 6 months ago. [place] slightly higher. Discussed potential for ablation. Patient not interested at this time. Continue sotalol continue Xarelto. Anticoagulation management encounter 03/24/2019 Assessment & Plan (03/31/2021 1:03 PM CDT): Xarelto to prevent systemic embolization from the atrial fibrillation. Assessment & Plan (03/14/2021 2:31 PM CDT): High chads Vasc. Continue Xarelto. Assessment & Plan (09/30/2020 2:35 PM CHILD CARE DIRECTOR): Xarelto to prevent systemic embolization from the atrial fibrillation. Assessment & Plan (04/12/2020 2:49 PM CDT): Continue Xarelto. Upcoming labs to confirm GFR remains greater than 50 Assessment & Plan (03/25/2020 12:58 PM CDT): Xarelto. Assessment & Plan (10/06/2019 2:46 PM CHILD CARE DIRECTOR): Continue Xarelto 20 mg daily Assessment & Plan (03/24/2019 3:33 PM CDT): Xarelto 20 mg q.h.s. Sinus node dysfunction (CMS/HCC) 06/12/2016 Intermittent atrial fibrillation (CMS/HCC) 06/01 Assessment & Plan (03/31/2021 1:01 PM CDT): Underwent cryoablation of the intermittent atrial fibrillation on 01/31/2021. No longer on the sotalol. Remains on the Xarelto to prevent systemic embolization. Assessment & Plan (11/29/2020 2:20 PM CHILD CARE DIRECTOR): [place] up to 48% from 33% on last check. All episodes less than 48 hours. Continue Xarelto I spent a total of 30 Face to Face minutes of which more than 50% of the time was spent in counseling and coordination of care. This time included: Again review of PVI. High likelihood of success. Low potential risk of complications including bleeding stroke esophageal injury and diaphragmatic paralysis. She is willing to proceed. Assessment & Plan (09/30/2020 2:35 PM CHILD CARE DIRECTOR): Sotalol to prevent the recurrence of atrial fibrillation. Xarelto to prevent systemic embolization. Continues to have episodes of intermittent atrial fibrillation off and on. Less than before. Palpitations 06/01/2016 Assessment & Plan (03/31/2021 1:02 PM CDT): Due to the premature supraventricular beats and due to the episodes of intermittent atrial fibrillation. Cardizem. Assessment & Plan (03/14/2021 2:35 PM CDT): From very short episodes of AFib. Minimal. Assessment & Plan (09/29/2020 9:01 PM CHILD CARE DIRECTOR): Due to premature supraventricular beats and due to episodes of intermittent atrial fibrillation. Sotalol. Cardizem. Assessment & Plan (03/24/2020 8:31 PM CDT): Previously the palpitations were due to the premature supraventricular beats. More recently due to the episodes of intermittent atrial fibrillation. Cardizem. Sotalol. Assessment & Plan (06/17/2019 3:01 PM CDT): Previously the palpitations were due to the premature supraventricular beats and PSVT. More recently due to the episodes of intermittent atrial fibrillation. Cardizem. Sotalol. 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 Under good control with a combination of the Cardizem and the sotalol. Assessment & Plan (03/24/2020 8:32 PM CDT): Long history of symptomatic premature supraventricular beats. Under better control with a combination of the Cardizem and the Sotalol. Assessment & Plan (06/15/2019 9:19 PM CDT): Long history of symptomatic premature supraventricular beats. The under better control with a combination of Cardizem and sotalol. Syncope 06/01/2016 Overview (06/15/2019): With Lopressor Assessment & Plan (03/30/2021 7:05 PM CDT): History of syncope with Lopressor. No recurrence. Assessment & Plan (09/29/2020 9:03 PM CHILD CARE DIRECTOR): History of syncope with Lopressor. No recurrence. Assessment & Plan (03/24/2020 8:32 PM CDT): History of syncope with Lopressor. No recurrence. Assessment & Plan (06/15/2019 9:19 PM CDT): History of syncope with Lopressor. No recurrence lately. Hyperlipidemia 06/01/2016 Assessment & Plan (03/30/2021 7:02 PM CDT): Statins are poorly tolerated. Assessment & Plan (09/29/2020 9:00 PM CHILD CARE DIRECTOR): Statins are poorly tolerated. Assessment & Plan (03/24/2020 8:32 PM CDT): Statins are poorly tolerated. Assessment & Plan (06/15/2019 9:20 PM CDT): Statins are poorly tolerated. History of permanent cardiac pacemaker placement 06/01/2016 Paroxysmal supraventricular tachycardia 06/01/20 16 Assessment & Plan (09/29/2020 9:02 PM CHILD CARE DIRECTOR): Sotalol. Cardizem. Assessment & Plan (03/24/2020 8:33 PM CDT): Cardizem 60 mg p.o. b.i.d.. Assessment & Plan (06/15/2019 9:20 PM CDT): Continue the Cardizem 60 mg p.o. B.i.d. History of syncope 06/01/2016 Status post ablation of atrial fibrillation 05/21 Social History Tobacco Use Types Packs/Day Years Used Date Smoking Tobacco: Never Smokeless Tobacco: Never Tobacco Cessation:Counseling Given: Not Answered Alcohol Use Standard Drinks/Week Comments Yes 0 (1 standard drink = 0.6 oz pur e alcohol) occassionally AUDIT-C Answer Date Recorded Q1: How often do you have a drink containing alcohol? Never 02/21/2024 Q2: How many drinks containi ng alcohol do you have on a typical day when you are drinking? Patient does not drink Q3: How often do you have si x or more drinks on one occasion? Never 02/21/2024 Personal Safety Answer Date Recorded Have you ever been in or are you currently in a harmful physical or emotional relationship or is someone making you feel afraid or unsafe? Denies 02/21/2024 Comments Unknown Sex and Gender Information Value Date Recorded Sex Assigned at Not on file Legal Sex Female 7:34 AM CHILD CARE DIRECTOR Gender Identity Not on file Sexual Orientation Not on file Last Filed Vital Signs Vital Sign Reading Time Taken Comments Blood Pressure 130/76 10/07/2024 2:52 PM CHILD CARE DIRECTOR Pulse 84 10/07/2024 2:52 PM CHILD CARE DIRECTOR Temperature 36.3 ??C (97.3 ??F) 03/16/2022 2:03 PM CD T Respiratory Rate 16 02/21/2024 8:48 AM CDT Oxygen Saturation 98% 10/07/2024 2:52 PM CHILD CARE DIRECTOR Inhaled Oxygen Concentration - - Weight 88.9 kg (196 lb) 10/07/2024 2:52 PM CHILD CARE DIRECTOR Height 157.5 cm (5' 2 ) 10/02/2023 1:20 PM CHILD CARE DIRECTOR Body Mass Index 35.85 10/02/2023 1:20 PM CHILD CARE DIRECTOR Plan of Treatment Not on file Medical Devices Implanted Type Area Surface Supervisor Device Identifier Shelf Expiration Date Model / Serial / Lot I3 [employer]. Accolade Latitude Nxt Pacesafe Easyview 4.45x5.02cm 2 Chamber Is1 [id number] - [id number] Implanted:Qty: 1 on 02/21/2024 by Joseph Gonzalez MD at [facility] I[employer] C.[employer].M. L311 / / Insurance MEDICARE MEDICARE [facility] MEDICARE SUPPLEMENT Care Teams Press Cleaner Relationship Specialty Start Date End Date Karma Nayak NP [address] [place] [address] PCP - General Nurse Practitioner 10/02/23 Sultan Corby Jenkins MD [address] [facility] [address] [place] [address] Rn Private Duty Cardiology 05/29/19
--- OUTSIDE RECORDS SUMMARY | 2024-11-12 21:44 | XMS_ITS | Encounter Summary ---
Author Organization [facility] Facility Care Team Providers Care Rn Radiation Name Role Phone Deven Brown MD Primary Care Provider [phone] Joby Lewis DO Primary Care Provider [phone] Sultan Corby Jenkins MD Unavailable [phone] Karma Nayak NP Primary Care Provider [phone] Encounter Details Date Type Department Care Team (Latest Contact Info) Description 02/09/2016 Orders Only [facility] CLINCONV Provider, MD [place] [address] [place] [address] Social History Tobacco Use Types Packs/Day Years Used Date Smoking Tobacco: Never Assessed Comments Unknown Sex and Gender Information Value Date Recorded Sex Assigned at Not on file Legal Sex Female 7:34 AM EQUITY STRUCTURER Gender Identity Not on file Sexual Orientation Not on file documented as of this encounter Plan of Treatment Not on file documented as of this encounter Procedures Procedure Name Priority Date/Time Associated Diagnosis Comments SCAN - LABS 06/01/2016 12:00 AM CDT documented in this encounter Results * SCAN - LABS (06/01/2016 12:00 AM CDT) Narrative 06/01/2016 12:00 AM CDT Ordered by an unspecified provider. us Historical Provider Final Res ult documented in this encounter Visit Diagnoses Not on filedocumented in this encounter Care Teams Rn Radiation Relationship Specialty Start Date End Date Deven Brown MD [address] [place] [address] PCP - General Internal Medicine 03/19/19 03/23/19 Joby Lewis DO [address] [place] [address] PCP - General Internal Medicine 03/24/19 10/01/23 Karma Nayak NP [address] [place], [place] [id number] PCP - General Nurse Practitioner 10/02/23 Sultan Corby Jenkins MD [address] [facility] [address] [address] Bindery Supervisor Cardiology 05/29/19 documented as of this encounter
--- OUTSIDE RECORDS SUMMARY | 2024-11-12 21:44 | XMS_ITS | Encounter Summary ---
Author Organization [facility] Facility Care Team Providers Care Continuous Improvement Coordinator Name Role Phone Deven Brown MD Primary Care Provider [phone] Joby Lewis DO Primary Care Provider [phone] Sultan Corby Jenkins MD Unavailable [phone] Karma Nayak NP Primary Care Provider Encounter Details Date Type Department Care Team (Latest Contact Info) Description 07/19/2015 Orders Only [facility] CLINCONV Provider, MD [place] [address] [place] [address] Social History Tobacco Use Types Packs/Day Years Used Date Smoking Tobacco: Never Assessed Comments Unknown Sex and Gender Information Value Date Recorded Sex Assigned at Not on file Legal Sex Female 7:34 AM SLITTING MACHINE OPERATOR HELPER Gender Identity Not on file Sexual Orientation Not on file documented as of this encounter Plan of Treatment Not on file documented as of this encounter Procedures Procedure Name Priority Date/Time Associated Diagnosis Comments CARDIOLOGY REPORT 06/01/2016 12: 00 AM CDT documented in this encounter Results * CARDIOLOGY REPORT (06/01/2016 12:00 AM CDT) Anatomical Region Laterality Modality Other Narrative 06/01/2016 12:00 AM CDT Ordered by an unspecified provider. us Historical Provider [facility] SARATH THOMAS Final Result documented in this encounter Visit Diagnoses Not on filedocumented in this encounter Care Teams Continuous Improvement Coordinator Relationship Specialty Start Date End Date Deven Brown MD [address] [place] [address] PCP - General Internal Medicine 03/19/19 03/23/19 Joby Lewis DO [address] [place] [address] PCP - General Internal Medicine 03/24/19 10/01/23 Karma Nayak NP [address] [place] [address] PCP - General Nurse Practitioner 10/02/23 Sultan Corby Jenkins MD [address] [facility] [address] [address] Prescription Benefit Specialist Cardiology 05/29/19 documented as of this encounter
--- OUTSIDE RECORDS SUMMARY | 2024-11-12 21:44 | XMS_ITS | Encounter Summary ---
Author Organization [facility] Facility Care Team Providers Care Child Care Supervisor Name Role Phone Deven Brown MD Primary Care Provider [phone] Joby Lewis DO Primary Care Provider [phone] Sultan Corby Jenkins MD Unavailable [phone] Karma Nayak NP Primary Care Provider [phone] Encounter Details Date Type Department Care Team (Latest Contact Info) Description 12/24/2017 Orders Only [facility] CLINCONV Provider, MD [place] [address] [place] [address] Social History Tobacco Use Types Packs/Day Years Used Date Smoking Tobacco: Never Assessed Comments Unknown Sex and Gender Information Value Date Recorded Sex Assigned at Not on file Legal Sex Female 7:34 AM CHRISTIAN SCIENCE READER Gender Identity Not on file Sexual Orientation Not on file documented as of this encounter Plan of Treatment Not on file documented as of this encounter Procedures Procedure Name Priority Date/Time Associated Diagnosis Comments CARDIOLOGY REPORT 12/24/2017 12: 00 AM CHRISTIAN SCIENCE READER CARDIOLOGY REPORT 12/24/2017 12: 00 AM CHRISTIAN SCIENCE READER CARDIOLOGY REPORT 12/24/2017 12: 00 AM CHRISTIAN SCIENCE READER documented in this encounter Results * CARDIOLOGY REPORT (12/24/2017 12:00 AM CHRISTIAN SCIENCE READER) Anatomical Region Laterality Modality Other Narrative 12/24/2017 12:00 AM CHRISTIAN SCIENCE READER Ordered by an unspecified provider. us Historical Provider [facility] PROCE DURES Final Result * CARDIOLOGY REPORT (12/24/2017 12:00 AM CHRISTIAN SCIENCE READER) Anatomical Region Laterality Modality Other Narrative 12/24/2017 12:00 AM CHRISTIAN SCIENCE READER Ordered by an unspecified provider. Historical Provider [facility] PROCE DURES Final Result * CARDIOLOGY REPORT (12/24/2017 12:00 AM CHRISTIAN SCIENCE READER) Anatomical Region Laterality Modality Other Narrative 12/24/2017 12:00 AM CHRISTIAN SCIENCE READER Ordered by an unspecified provider. Historical Provider [facility] PROCE DURES Final Result documented in this encounter Visit Diagnoses Not on filedocumented in this encounter Care Teams Child Care Supervisor Relationship Specialty Start Date End Date Deven Brown MD [address] [place] [address] PCP - General Internal Medicine 03/19/19 03/23/19 Joby Lewis DO [address] [place] [address] PCP - General Internal Medicine 03/24/19 10/01/23 Karma Nayak NP [address] [place] [address] PCP - General Nurse Practitioner 10/02/23 Sultan Corby Jenkins MD [address] [facility] [address] [place] [address] Residential Mental Health Worker Cardiology 05/29/19 documented as of this encounter
--- OUTSIDE RECORDS SUMMARY | 2024-11-12 21:44 | XMS_ITS | Encounter Summary ---
Author Organization [facility] Facility Care Team Providers Care School Bus Driver/Teacher Assistant Name Role Phone Deven Brown MD Primary Care Provider [phone] Joby Lewis DO Primary Care Provider [phone] Sultan Corby Jenkins MD Unavailable [phone] Karma Nayak NP Primary Care Provider [phone] Encounter Details Date Type Department Care Team (Latest Contact Info) Description 11/10/2013 Orders Only [facility] CLINCONV Provider, MD [place] [address] [place] [address] Social History Tobacco Use Types Packs/Day Years Used Date Smoking Tobacco: Never Assessed Comments Unknown Sex and Gender Information Value Date Recorded Sex Assigned at Not on file Legal Sex Female 7:34 AM DIETARY DIRECTOR Gender Identity Not on file Sexual [...] on filedocumented in this encounter Care Teams School Bus Driver/Teacher Assistant Relationship Specialty Start Date End Date Deven Brown MD [address] [place] [address] PCP - General Internal Medicine 03/19/19 03/23/19 Joby Lewis DO [address] [place] [address] PCP - General Internal Medicine 03/24/19 10/01/23 Karma Nayak NP [address] [place], [place] [id number] PCP - General Nurse Practitioner 10/02/23 Sultan Corby Jenkins MD [address] [facility] [address] [address] Ring Sewer Cardiology 05/29/19 documented as of this encounter
--- OUTSIDE RECORDS SUMMARY | 2024-11-12 21:44 | XMS_ITS | Encounter Summary ---
Author Organization [facility] Facility Care Team Providers Care Electrician Helper Powerhouse Name Role Phone Deven Brown MD Primary Care Provider [phone] Joby Lewis DO Primary Care Provider [phone] Sultan Corby Jenkins MD Unavailable [phone] Karma Nayak NP Primary Care Provider Encounter Details Date Type Department Care Team (Latest Contact Info) Description 07/21/2015 Orders Only [facility] CLINCONV Provider, MD [place] [address] [place] [address] Social History Tobacco Use Types Packs/Day Years Used Date Smoking Tobacco: Never Assessed Comments Unknown Sex and Gender Information Value Date Recorded Sex Assigned at Not on file Legal Sex Female 7:34 AM RESOLUTION REP Gender Identity Not on file Sexual Orientation [...] on filedocumented in this encounter Care Teams Electrician Helper Powerhouse Relationship Specialty Start Date End Date Deven Brown MD [address] [place] [address] PCP - General Internal Medicine 03/19/19 03/23/19 Joby Lewis DO [address] [place] [address] PCP - General Internal Medicine 03/24/19 10/01/23 Karma Nayak NP [address] [place], [place] [id number] PCP - General Nurse Practitioner 10/02/23 Sultan Corby Jenkins MD [address] [facility] [address] [address] Railroad Accountant Cardiology 05/29/19 documented as of this encounter
--- OUTSIDE RECORDS SUMMARY | 2024-11-12 21:44 | XMS_ITS | Referral Summary ---
Author Organization [facility] [employer] Address [address] [place] [address] Care Team Providers Care Claims Consultant Name Role Phone Sher Nelson MD Primary Care Provider [phone] Source Comments [facility],non-owned Affiliates and Associated Physician Practices is amultiple site organization consisting of ambulatory clinics and hospital sitesin [place], [place], [place] and [place]. This disclosure is being madepursuant to the Care Everywhere program and may not contain all information available regarding this patient. Last updated 18.[facility] Social History Tobacco Use Types Packs/Day Years Used Date Smoking Tobacco: Never Assessed Sex and Gender Information Value Date Recorded Sex Assigned at Not on file Gender Identity Not on file Sexual Orientation Not on file Plan of Treatment Not on file Care Teams Claims Consultant Relationship Specialty [place] [address] [place] [id number] PCP - General 10/31/22
--- OUTSIDE RECORDS SUMMARY | 2024-11-12 21:44 | XMS_ITS | Encounter Summary ---
Author Organization [facility] Facility Care Team Providers Care Tool And Equipment Rental Clerk Name Role Phone Deven Brown MD Primary Care Provider [phone] Joby Lewis DO Primary Care Provider [phone] Sultan Corby Jenkins MD Unavailable Karma Nayak NP Primary Care Provider [phone] Encounter Details Date Type Department Care Team (Latest Contact Info) Description 12/18/2016 Orders Only [facility] CLINCONV Provider, MD Es[place] [address] [place] [address] Social History Tobacco Use Types Packs/Day Years Used Date Smoking Tobacco: Never Assessed Comments Unknown Sex and Gender Information Value Date Recorded Sex Assigned at Not on file Legal Sex Female 7:34 AM CULL GRADER Gender Identity Not on file Sexual Orientation Not on file documented as of this encounter Plan of Treatment Not on file documented as of this encounter Procedures Procedure Name Priority Date/Time Associated Diagnosis Comments CARDIOLOGY REPORT 01/15/2017 12: 00 AM CDT CARDIOLOGY REPORT 01/15/2017 12: 00 AM CDT CARDIOLOGY REPORT 12/19/2016 12: 00 AM CULL GRADER CARDIOLOGY REPORT 12/18/2016 12: 00 AM CULL GRADER CARDIOLOGY REPORT 12/18/2016 12: 00 AM CULL GRADER documented in this encounter Results * CARDIOLOGY REPORT (01/15/2017 12:00 AM CDT) Anatomical Region Laterality Modality Other Narrative 01/15/2017 12:00 AM CDT Ordered by an unspecified provider. [facility] Provider CV CARDIAC SERVICES PROCE DURES Final Result * CARDIOLOGY REPORT (01/15/2017 12:00 AM CDT) Anatomical Region Laterality Modality Other Narrative 01/15/2017 12:00 AM CDT Ordered by an unspecified provider. [facility] Provider CV CARDIAC SERVICES PROCE DURES Final Result * CARDIOLOGY REPORT (12/19/2016 12:00 AM CULL GRADER) Anatomical Region Laterality Modality Other Narrative 12/19/2016 12:00 AM CULL GRADER Ordered by an unspecified provider. [facility] Provider CV CARDIAC SERVICES PROCE DURES Final Result * CARDIOLOGY REPORT (12/18/2016 12:00 AM CULL GRADER) Anatomical Region Laterality Modality Other Narrative 12/18/2016 12:00 AM CULL GRADER Ordered by an unspecified provider. [facility] Provider CV CARDIAC SERVICES PROCE DURES Final Result * CARDIOLOGY REPORT (12/18/2016 12:00 AM CULL GRADER) Anatomical Region Laterality Modality Other Narrative 12/18/2016 12:00 AM CULL GRADER Ordered by an unspecified provider. [facility] Provider CV CARDIAC SERVICES PROCE DURES Final Result documented in this encounter Visit Diagnoses Not on filedocumented in this encounter Care Teams Tool And Equipment Rental Clerk Relationship Specialty Start Date End Date Deven Brown MD [address] [place] [address] PCP - General Internal Medicine 03/19/19 03/23/19 Joby Lewis DO [address] [place] [address] PCP - General Internal Medicine 03/24/19 10/01/23 Karma Nayak NP [address] [place] [address] PCP - General Nurse Practitioner 10/02/23 Sultan Corby Jenkins MD [address] [address] Forming Yardage Control Operator Cardiology 05/29/19 documented as of this encounter
--- OUTSIDE RECORDS SUMMARY | 2024-11-12 21:44 | XMS_ITS | Patient Health Summary ---
Author Organization [facility] Address [address] [place] [address] Care Team Providers Care Differential Repairer Name Role Phone Sher Nelson MD Primary Care Provider [phone] Note from [facility] [place][note 2],non-owned Affiliates and Associated Physician Practices is amultiple site organization consisting of ambulatory clinics and hospital sitesin [place], [place], [place] and [place]. This disclosure is being madepursuant to the Care Everywhere program and may not contain all information available regarding this patient. Last updated 18.[facility] Social History Tobacco Use Types Packs/Day Years Used Date Smoking Tobacco: Never Assessed Sex and Gender Information Value Date Recorded Sex Assigned at Not on file Gender Identity Not on file Sexual Orientation Not on file Procedures * DERMATOPATHOLOGY(Performed 04/22/2024) * DERMATOPATHOLOGY(Performed 01/31/2023) Results * DERMATOPATHOLOGY (04/22/2024 10:52 AM CDT) Only the most recent of2 resultswithin the time period is included. Case Report Dermatopathology Report ? Case: [id number] ? Authorizing Provider: ??Letitia Mehta MD ? Collected: ? 04/22/2024 10:52 AM ? Ordering Location: ? [facility] - ??Received: ?04/24/2024 08:33 AM ? DermPath Lab ? Pathologist: ? Abril Lujan MD ? Specimen: ?Skin, left nasal crease ? 4 4:42 PM CDT DERMATOPATHOLOGY LABORATORY Final Diagnosis Specimen A. SKIN, left nasal crease: BASAL CELL CARCINOMA, NODULAR TYPE (C44.311) 4 4:42 PM T DERMATOPATHOLOGY LABORATORY Clinical History BCC vs SCC [...] characteristic determined by the Dermatopathology Laboratory at [facility], directed by Dr. Selena Gilman. These tests need not be, and therefore are not, approved by the [place] Food and Drug Administration. The tests are used for clinical purposes. Billing Codes Specimen Charges Stain Charges 80867 1 4 4:42 PM CDT DERMATOPATHOLOGY LABORATORY Embedded Images 4 4:42 PM CDT DERMATOPATHOLOGY LABORATORY Pathology/Cytolo gy TISSUE SPECIMEN FROM SKIN / Unknown 04/22/2024 10:52 AM CDT 04/24/2024 8:33 AM CDT Letitia Mehta MD LAB - PATHOLOGY/CYT OLOGY ORDERABLES DERMATOPATHOLOGY LABORATORY [facility] - Department of Dermatology [facility] Medicine [address] [place] [address], [address] [phone] Care Teams Differential Repairer Relationship Specialty [place] [id number] [address] PCP - General 10/31/22
--- OUTSIDE RECORDS SUMMARY | 2024-11-12 21:44 | XMS_ITS | Clinical Summary ---
Author Organization [facility] Address [address] [place] [address] Care Team Providers Care Gas Main Fitter Name Role Phone Sultan Corby Jenkins MD Unavailable [phone] Karma Nayak NP Primary Care Provider [phone] Allergies No known active allergies Medications levothyroxine (SYNTHROID, LEVOTHROID) 100 mcg tablet Take 1 tablet (100 mcg total) by mouth daily 0 9 Active vit D3-vit H-drxygvjto-hkz s [phone] ekej-vkg-xd-mg tablet Take by mouth daily Active triamcinolone (KENALOG) 0.1 % cream APPLY TOPICALLY TO THE AFFECTED AREA ON ARMS TWICE DAILY NEEDED. 2 Active atenoloL (TENORMIN) 50 mg tablet TAKE 1 TABLET(50 MG) BY MOUTH DAILY 90 tablet 1 4 Active Active Problems Problem Noted Date Diagnosed Date penitentiary current use of anticoagulant 4 Sick sinus syndrome due to SA node dysfunction ( CMS/HCC) 02/11/2024 Morbid obesity 04/12/2020 Assessment & Plan (03/30/2021 7:03 PM CDT): Has been encouraged to lose weight. Assessment & Plan (11/29/2020 2:20 PM RECOVERY OPERATOR HELPER): Encouraged dieting weight loss Assessment & Plan (09/30/2020 2:36 PM RECOVERY OPERATOR HELPER): Lose Weight. Assessment & Plan (04/12/2020 2:48 [...] life. Assessment & Plan (11/29/2020 1:54 PM RECOVERY OPERATOR HELPER): Check today shows normal function. Underlying rhythm [...] follows. Assessment & Plan (10/06/2019 2:47 PM RECOVERY OPERATOR HELPER): Check today shows normal function. Underlying rhythm [...] for years. 32% AFib Paroxysmal atrial fibrillation (CMS/HCC) 019 Assessment & Plan (03/14/2021 2:30 PM [...] Assessment & Plan (04/12/2020 2:48 PM CDT): [place] unchanged at 32%. And monthly trend line [...] 458. Assessment & Plan (10/06/2019 2:46 PM RECOVERY OPERATOR HELPER): [place] unchanged around 30%. Continue anticoagulation. Rates controlled [...] much change from check 6 months ago. [place] slightly higher. Discussed potential for ablation. Patient not interested at this time. Continue sotalol continue Xarelto. Anticoagulation management encounter 03/24/2019 Assessment & Plan (03/31/2021 1:03 PM CDT): Xarelto to prevent systemic embolization from the atrial fibrillation. Assessment & Plan (03/14/2021 2:31 PM CDT): High chads Vasc. Continue Xarelto. Assessment & Plan (09/30/2020 2:35 PM RECOVERY OPERATOR HELPER): Xarelto to prevent systemic embolization from the atrial fibrillation. Assessment & Plan (04/12/2020 2:49 PM CDT): Continue Xarelto. Upcoming labs to confirm GFR remains greater than 50 Assessment & Plan (03/25/2020 12:58 PM CDT): Xarelto. Assessment & Plan (10/06/2019 2:46 PM RECOVERY OPERATOR HELPER): Continue Xarelto 20 mg daily Assessment & Plan (03/24/2019 3:33 PM CDT): Xarelto 20 mg q.h.s. Sinus node dysfunction (CMS/HCC) 06/12/2016 Intermittent atrial fibrillation (CMS/HCC) 06/01 Assessment & Plan (03/31/2021 1:01 PM CDT): Underwent cryoablation of the intermittent atrial fibrillation on 01/31/2021. No longer on the sotalol. Remains on the Xarelto to prevent systemic embolization. Assessment & Plan (11/29/2020 2:20 PM RECOVERY OPERATOR HELPER): [place] up to 48% from 33% on last [...] proceed. Assessment & Plan (09/30/2020 2:35 PM RECOVERY OPERATOR HELPER): Sotalol to prevent the recurrence of atrial [...] Minimal. Assessment & Plan (09/29/2020 9:01 PM RECOVERY OPERATOR HELPER): Due to premature supraventricular beats and due [...] 06/01/2016 Assessment & Plan (09/29/2020 9:02 PM RECOVERY OPERATOR HELPER): Long history of symptomatic premature supraventricular beats. [...] recurrence. Assessment & Plan (09/29/2020 9:03 PM RECOVERY OPERATOR HELPER): History of syncope with Lopressor. No recurrence. Assessment & Plan (03/24/2020 8:32 PM CDT): History of syncope with Lopressor. No recurrence. Assessment & Plan (06/15/2019 9:19 PM CDT): History of syncope with Lopressor. No recurrence lately. Hyperlipidemia 06/01/2016 Assessment & Plan (03/30/2021 7:02 PM CDT): Statins are poorly tolerated. Assessment & Plan (09/29/2020 9:00 PM RECOVERY OPERATOR HELPER): Statins are poorly tolerated. Assessment & Plan (03/24/2020 8:32 PM CDT): Statins are poorly tolerated. Assessment & Plan (06/15/2019 9:20 PM CDT): Statins are poorly tolerated. History of permanent cardiac pacemaker placement 06/01/2016 Paroxysmal supraventricular tachycardia 06/01/20 16 Assessment & Plan (09/29/2020 9:02 PM RECOVERY OPERATOR HELPER): Sotalol. Cardizem. Assessment & Plan (03/24/2020 8:33 PM CDT): Cardizem 60 mg p.o. b.i.d.. Assessment & Plan (06/15/2019 9:20 PM CDT): Continue the Cardizem 60 mg p.o. B.i.d. History of syncope 06/01/2016 Status post ablation of atrial fibrillation 05/21 Encounters Date Type Department Care Team Description 10/07/2024 3:15 PM RECOVERY OPERATOR HELPER Office Visit [facility] Cardiology [facility] [facility] [address] [place] [address] Sultan Corby Jenkins MD Intermittent atrial fibrillation (CMS/HCC) (HCC) (Primary Dx) 09/02/2024 9:45 AM RECOVERY OPERATOR HELPER Ancillary Procedure [facility] Cardiology [address] [facility] [facility] [address] [place] [address] Sinus node dysfunction (CMS/HCC) (HCC); Paroxysmal atrial fibrillation (CMS/HCC) (HCC); Pacemaker from Last 3 Months Surgical History Surgery Date Site/Laterality Comments INSERT / REPLACE / REMOVE PACEMAKER BREAST SURGERY IMPLANTS ABLATION CATARACT EXTRACTION Medical History Medical History Date Comments Palpitations Syncope SVT (supraventricular tachycardia) (HCC) Hyperlipidemia Thyroid disease ??? Family History Medical History Relation Name Comments Cancer Father Earnest Kanwal Atrial fibrillation Mother Kelle calderon Stroke Mother Kelle calderon Cancer Sister Adela Valencia Relation Name Status Comments Father Earnest Kanwal Mother Kelle calderon Sister Adela Valencia Social History Tobacco Use Types Packs/Day Years [...] on file Legal Sex Female 7:34 AM RECOVERY OPERATOR HELPER Gender Identity Not on file Sexual Orientation Not on file Obstetrics History Last Filed Vital Signs Vital Sign Reading Time Taken Comments Blood Pressure 130/76 10/07/2024 2:52 PM RECOVERY OPERATOR HELPER Pulse 84 10/07/2024 2:52 PM RECOVERY OPERATOR HELPER Temperature 36.3 ??C (97.3 ??F) 03/16/2022 2:03 PM CD T Respiratory Rate 16 02/21/2024 8:48 AM CDT Oxygen Saturation 98% 10/07/2024 2:52 PM RECOVERY OPERATOR HELPER Inhaled Oxygen Concentration - - Weight 88.9 kg (196 lb) 10/07/2024 2:52 PM RECOVERY OPERATOR HELPER Height 157.5 cm (5' 2 ) 10/02/2023 1:20 PM RECOVERY OPERATOR HELPER Body Mass Index 35.85 10/02/2023 1:20 PM RECOVERY OPERATOR HELPER Plan of Treatment Health Maintenance Due Date Last Done Comments Depression Screening 1945 Hepatitis C Screening 1945 Osteoporosis Screening-Bone Density Scan 1945 DTaP/Tdap/Td Vaccine (1 - Tdap) 1957 Hepatitis B Screening 1964 Zoster Vaccine (1 of 2) 1996 Pneumococcal vaccine 65+ (1 of 1 - PCV) 2011 Well Visit 65+ 2011 Influenza Vaccine (#1) 2024 9, 08/17/2018, 07/23/2016, Additional history exists Fall Risk Assessment 02/20/2025 02/21/2024 Medical Devices Implanted Type Area Cake Puncher Device Identifier Shelf Expiration Date Model / Serial / Lot [employer] C.R.M. Accolade Latitude Nxt Pacesafe Easyview [id number] 2 Chamber Is1 [id number] - [id number] Implanted:Qty: 1 on 02/21/2024 by Joseph Gonzalez MD at [facility] [employer] C.[employer]M. L311 / / Insurance MEDICARE MEDICARE [facility] MEDICARE SUPPLEMENT Care Teams Gas Main Fitter Relationship Specialty Start Date End Date Karma Nayak NP [address] [place] [address] PCP - General Nurse Practitioner 10/02/23 Sultan Corby Jenkins MD [address] [address] Executive Advisor Cardiology 05/29/19
--- OUTSIDE RECORDS SUMMARY | 2024-11-12 21:44 | XMS_ITS | Encounter Summary ---
Author Organization [facility] Facility Care Team Providers Care Dean Of Admissions Name Role Phone Deven Brown MD Primary Care Provider [phone] Joby Lewis DO Primary Care Provider [phone] Sultan Corby Jenkins MD Unavailable [phone] Karma Nayak NP Primary Care Provider [phone] Encounter Details Date Type Department Care Team (Latest Contact Info) Description 07/20/2015 Orders Only MMG CLINCONV Provider, MD Esperanza [address] [place] [address] Social History Tobacco Use Types Packs/Day Years Used Date Smoking Tobacco: Never Assessed Comments Unknown Sex and Gender Information Value Date Recorded Sex Assigned at Not on file Legal Sex Female 7:34 AM BENDING SHED WORKER Gender Identity Not on file Sexual Orientation [...] on filedocumented in this encounter Care Teams Dean Of Admissions Relationship Specialty Start Date End Date Deven Brown MD [address] [place] [address] PCP - General Internal Medicine 03/19/19 03/23/19 Joby Lewis DO [address] [place] [address] PCP - General Internal Medicine 03/24/19 10/01/23 Karma Nayak NP [address] [place] [address] PCP - General Nurse Practitioner 10/02/23 Sultan Corby Jenkins MD [address] [facility] [address] [address] Sexual Assault Counsellor Cardiology 05/29/19 documented as of this encounter
--- OUTSIDE RECORDS SUMMARY | 2024-11-12 21:44 | XMS_ITS | Encounter Summary ---
Author Organization [facility] Facility Care Team Providers Care Cutting And Splicing Supervisor Name Role Phone Deven Brown MD Primary Care Provider [phone] Joby Lewis DO Primary Care Provider [phone] Sultan Corby Jenkins MD Unavailable [phone] Karma Nayak NP Primary Care Provider [phone] Encounter Details Date Type Department Care Team (Latest Contact Info) Description 07/22/2015 Orders Only MMG CLINCONV Provider, MD Esperanza [address] [place] [address] Social History Tobacco Use Types Packs/Day Years Used Date Smoking Tobacco: Never Assessed Comments Unknown Sex and Gender Information Value Date Recorded Sex Assigned at Not on file Legal Sex Female 7:34 AM CEMENTER MACHINE APPLICATOR Gender Identity Not on file Sexual Orientation [...] on filedocumented in this encounter Care Teams Cutting And Splicing Supervisor Relationship Specialty Start Date End Date Deven Brown MD [address] [place] [address] PCP - General Internal Medicine 03/19/19 03/23/19 Joby Lewis DO [address] [place] [address] PCP - General Internal Medicine 03/24/19 10/01/23 Karma Nayak NP [address] [place] [address] PCP - General Nurse Practitioner 10/02/23 Sultan Corby Jenkins MD [address] [facility] [address] [address] Director Of Accounting Cardiology 05/29/19 documented as of this encounter
--- OUTSIDE RECORDS SUMMARY | 2024-11-12 21:44 | XMS_ITS | Encounter Summary ---
Author Organization [facility] Facility Care Team Providers Care Service Delivery Consultant Name Role Phone Deven Brown MD Primary Care Provider [phone] Joby Lewis DO Primary Care Provider [phone] Sultan Corby Jenkins MD Unavailable [phone] Karma Nayak NP Primary Care Provider [phone] Encounter Details Date Type Department Care Team (Latest Contact Info) Description 01/26/2016 Orders Only MMG CLINCONV Provider, MD Esperanza [address] [place] [address] Social History Tobacco Use Types Packs/Day Years Used Date Smoking Tobacco: Never Assessed Comments Unknown Sex and Gender Information Value Date Recorded Sex Assigned at Not on file Legal Sex Female 7:34 AM REGIONAL ACCOUNT MANAGER Gender Identity Not on file Sexual Orientation [...] on filedocumented in this encounter Care Teams Service Delivery Consultant Relationship Specialty Start Date End Date Deven Brown MD [address] [place] [address] PCP - General Internal Medicine 03/19/19 03/23/19 Joby Lewis DO [address] [place] [address] PCP - General Internal Medicine 03/24/19 10/01/23 Karma Nayak NP [address] [place], [place] [id number] PCP - General Nurse Practitioner 10/02/23 Sultan Corby Jenkins MD [address] [facility] [address] [address] Facilities Locator Cardiology 05/29/19 documented as of this encounter
--- OUTSIDE RECORDS SUMMARY | 2024-11-12 21:44 | XMS_ITS | Encounter Summary ---
Author Organization [facility] Facility Care Team Providers Care Water Pollution Scientist Name Role Phone Deven Brown MD Primary Care Provider Joby Lewis DO Primary Care Provider [phone] Sultan Coryb Jenkins MD Unavailable [phone] Karma Nayak NP Primary Care Provider [phone] Encounter Details Date Type Department Care Team (Latest Contact Info) Description 06/18/2017 Orders Only MMG CLINCONV Provider, MD Esperanza [address] [place] [address] Social History Tobacco Use Types Packs/Day Years Used Date Smoking Tobacco: Never Assessed Comments Unknown Sex and Gender Information Value Date Recorded Sex Assigned at Not on file Legal Sex Female 7:34 AM AIR CARGO AGENT Gender Identity Not on file Sexual Orientation Not on file documented as of this encounter Plan of Treatment Not on file documented as of this encounter Procedures Procedure Name Priority Date/Time Associated Diagnosis Comments CARDIOLOGY REPORT 06/18/2017 12: 00 AM CDT CARDIOLOGY REPORT 06/18/2017 12: 00 AM CDT CARDIOLOGY REPORT 06/18/2017 12: 00 AM CDT CARDIOLOGY REPORT 06/18/2017 12: 00 AM CDT CARDIOLOGY REPORT 06/18/2017 12: 00 AM CDT documented in this encounter Results * CARDIOLOGY REPORT (06/18/2017 12:00 AM CDT) Anatomical Region Laterality Modality Other Narrative 06/18/2017 12:00 AM CDT Ordered by an unspecified provider. [facility] Provider CV CARDIAC SERVICES PROCE DURES Final Result * CARDIOLOGY REPORT (06/18/2017 12:00 AM CDT) Anatomical Region Laterality Modality Other Narrative 06/18/2017 12:00 AM CDT Ordered by an unspecified provider. [facility] Provider CV CARDIAC SERVICES PROCE DURES Final Result * CARDIOLOGY REPORT (06/18/2017 12:00 AM CDT) Anatomical Region Laterality Modality Other Narrative 06/18/2017 12:00 AM CDT Ordered by an unspecified provider. [facility] Provider CV CARDIAC SERVICES PROCE DURES Final Result * CARDIOLOGY REPORT (06/18/2017 12:00 AM CDT) Anatomical Region Laterality Modality Other Narrative 06/18/2017 12:00 AM CDT Ordered by an unspecified provider. [facility] Provider CV CARDIAC SERVICES PROCE DURES Final Result * CARDIOLOGY REPORT (06/18/2017 12:00 AM CDT) Anatomical Region Laterality Modality Other Narrative 06/18/2017 12:00 AM CDT Ordered by an unspecified provider. [facility] Provider CV CARDIAC SERVICES PROCE DURES Final Result documented in this encounter Visit Diagnoses Not on filedocumented in this encounter Care Teams Water Pollution Scientist Relationship Specialty Start Date End Date Deven Brown MD [address] [place] [address] PCP - General Internal Medicine 03/19/19 03/23/19 Joby Lewis DO [address] [place] [address] PCP - General Internal Medicine 03/24/19 10/01/23 Karma Nayak NP [address] [place] [id number] PCP - General Nurse Practitioner 10/02/23 Sultan Corby Jenkins MD [address] [facility] [address] [address] Salesperson Flowers Cardiology 05/29/19 documented as of this encounter
--- OUTSIDE RECORDS SUMMARY | 2024-11-12 21:44 | XMS_ITS | Encounter Summary ---
Author Organization [facility] Facility Care Team Providers Care City Detective Name Role Phone Deven Brown MD Primary Care Provider [phone] Joby Lewis DO Primary Care Provider [phone] Sultan Corby Jenkins MD Unavailable [phone] Karma Nayak NP Primary Care Provider [phone] Encounter Details Date Type Department Care Team (Latest Contact Info) Description 11/10/2015 Orders Only [facility]G CLINCONV Provider, MD Esperanza [address] [place] [address] Social History Tobacco Use Types Packs/Day Years Used Date Smoking Tobacco: Never Assessed Comments Unknown Sex and Gender Information Value Date Recorded Sex Assigned at Not on file Legal Sex Female 7:34 AM OUTBOUND SALES REPRESENTATIVE Gender Identity Not on file Sexual Orientation [...] on filedocumented in this encounter Care Teams City Detective Relationship Specialty Start Date End Date Deven Brown MD [address] [place] [address] PCP - General Internal Medicine 03/19/19 03/23/19 Joby Lewis DO [address] [place] [address] PCP - General Internal Medicine 03/24/19 10/01/23 Karma Nayak NP [address] [place] [address] PCP - General Nurse Practitioner 10/02/23 Sultan Corby Jenkins MD [address] [facility] [address] [address] Pool Lifeguard Cardiology 05/29/19 documented as of this encounter
== END 2024-11-11 08:21 | disposition home or self-care (01) ==
LOC: ANHLAB 08:22
PROVIDERS: PCP Nurse Practitioner Family; Visit Provider Nurse Practitioner Family
DX: K76.0 Fatty (change of) liver, not elsewhere classified (principal); J84.9 Interstitial pulmonary disease, unspecified; R73.03 Prediabetes; H53.19 Other subjective visual disturbances; E03.9 Hypothyroidism, unspecified; E78.5 Hyperlipidemia, unspecified; E55.9 Vitamin D deficiency, unspecified; Z79.899 Other long term (current) drug therapy
CPT/HCPCS: 36415; 80053; 80061; 82306; 83036; 84439; 84443; 85025

== ENCOUNTER 2024-12-15 16:14 | Outpatient (CLI) | payer MEDICARE, SELFPAY ==
--- NOTE | ~2024-12-15 | MM_ITS ---
EXAMINATION: MM screening cristina BI w yulia HISTORY: Screening mammogram, family history of breast cancer in her sister. TECHNIQUE: Craniocaudal and mediolateral oblique 3-D tomosynthesis images were obtained and synthetic 2-D images were generated. CAD analysis was submitted and interpreted. COMPARISON: 07/31/2021 BREAST PARENCHYMAL COMPOSITION:Dense: The breasts are extremely dense, which lowers the sensitivity o f mammography. FINDINGS: Stable presumed postoperative distortion in both breasts. No suspicious mass, calcification , or architectural distortion are identified in either breast to suggest malignancy. There has been n o suspicious interval change. IMPRESSION: No mammographic evidence of malignancy. Recommend routine screening mammography in one year. BI-RADS Category 2: Benign finding(s). Reviewed, dictated and finalized at location M. AIDE
--- OUTSIDE RECORDS SUMMARY | 2024-12-15 18:33 | XMS_ITS | Encounter Summary ---
Author Organization [facility] Facility Care Team Providers Care System Technologist Name Role Phone Deven Brown MD Primary Care Provider Joby Lewis DO Primary Care Provider [phone] Sultan Corby Jenkins MD Unavailable [phone] Karma Nayak NP Primary Care Provider [phone] Encounter Details Date Type Department Care Team (Latest Contact Info) Description 02/09/2016 Orders Only [facility] CLINCONV Provider, MD Esperanza [address] [place] [address] Social History Tobacco Use Types Packs/Day Years Used Date Smoking Tobacco: Never Assessed Comments Unknown Sex and Gender Information Value Date Recorded Sex Assigned at Not on file Legal Sex Female 7:34 AM SET ILLUSTRATOR Gender Identity Not on file Sexual Orientation [...] on filedocumented in this encounter Care Teams System Technologist Relationship Specialty Start Date End Date Deven Brown MD [address] [place] [address] PCP - General Internal Medicine 03/19/19 03/23/19 Joby Lewis DO [address] [place] [address] PCP - General Internal Medicine 03/24/19 10/01/23 Karma Nayak NP [address] [place], [place] [id number] PCP - General Nurse Practitioner 10/02/23 Sultan Corby Jenkins MD [address] [facility] [address] [address] Pipe Stem Aligner Cardiology 05/29/19 documented as of this encounter
--- OUTSIDE RECORDS SUMMARY | 2024-12-15 18:33 | XMS_ITS | Clinical Summary ---
Author Organization [facility] Address [address] [place] [address] Care Team Providers Care Top Lift And Automatic Window Repairer Name Role Phone Sher Nelson MD Primary Care Provider [phone] Source Comments [facility],non-owned Affiliates and Associated Physician Practices is amultiple site organization consisting of ambulatory clinics and hospital sitesin [place], [place], [place] and [place]. This disclosure is being madepursuant to the Care Everywhere program and may not contain all information available regarding this patient. Last updated 18.[facility] Social History Tobacco Use Types Packs/Day Years Used Date Smoking Tobacco: Never Assessed Sex and Gender Information Value Date Recorded Sex Assigned at Not on file Gender Identity Not on file Sexual Orientation Not on file Plan of Treatment Health Maintenance Due Date Last Done Comments BONE DENSITY TESTING 1945 MEDICARE AWV 12 MONTHS 1945 HEPATITIS C SCREENING 11/14/1964 [...] age to complete this topic Care Teams Top Lift And Automatic Window Repairer Relationship Specialty [place] [id number] [address] PCP - General 10/31/22
--- OUTSIDE RECORDS SUMMARY | 2024-12-15 18:33 | XMS_ITS | Encounter Summary ---
Author Organization [facility] Facility Care Team Providers Care Director Web Name Role Phone Deven Brown MD Primary Care Provider [phone] Joby Lewis DO Primary Care Provider [phone] Sultan Corby Jenkins MD Unavailable [phone] Karma Nayak NP Primary Care Provider [phone] Encounter Details Date Type Department Care Team (Latest Contact Info) Description 06/07/2016 Orders Only [facility] CLINCONV Provider, MD Esperanza [address] [place] [address] Social History Tobacco Use Types Packs/Day Years Used Date Smoking Tobacco: Never Assessed Comments Unknown Sex and Gender Information Value Date Recorded Sex Assigned at Not on file Legal Sex Female 7:34 AM DIRECTOR OF OPERATIONS FOR THERAPY Gender Identity Not on file Sexual Orientation [...] on filedocumented in this encounter Care Teams Director Web Relationship Specialty Start Date End Date Deven Brown MD [address] [place] [address] PCP - General Internal Medicine 03/19/19 03/23/19 Joby Lewis DO [address] [place] [address] PCP - General Internal Medicine 03/24/19 10/01/23 Karma Nayak NP [address] [place], [place] [id number] PCP - General Nurse Practitioner 10/02/23 Sultan Corby Jenkins MD [address] [facility] [address] [address] Envelope Stamping Machine Operator Cardiology 05/29/19 documented as of this encounter
--- OUTSIDE RECORDS SUMMARY | 2024-12-15 18:33 | XMS_ITS | Encounter Summary ---
Author Organization [facility] Facility Care Team Providers Care System Support Technician Name Role Phone Deven Brown MD Primary Care Provider [phone] Joby Lewis DO Primary Care Provider [phone] Sultan Corby Jenkins MD Unavailable [phone] Karma Nayak NP Primary Care Provider [phone] Encounter Details Date Type Department Care Team (Latest Contact Info) Description 07/22/2015 Orders Only [facility]G CLINCONV Provider, MD Esperanza [address] [place] [address] Social History Tobacco Use Types Packs/Day Years Used Date Smoking Tobacco: Never Assessed Comments Unknown Sex and Gender Information Value Date Recorded Sex Assigned at Not on file Legal Sex Female 7:34 AM UTILITY BAGGER Gender Identity Not on file Sexual Orientation [...] filedocumented in this encounter Care Teams System Support Technician Relationship Specialty Start Date End Date Deven Brown MD [address] [place] [address] PCP - General Internal Medicine 03/19/19 03/23/19 Joby Lewis DO [address] [place] [address] PCP - General Internal Medicine 03/24/19 10/01/23 Karma Nayak NP [address] [place] [address] PCP - General Nurse Practitioner 10/02/23 Sultan Corby Jenkins MD [address] [facility] [address] [address] Sas Developer Cardiology 05/29/19 documented as of this encounter
--- OUTSIDE RECORDS SUMMARY | 2024-12-15 18:33 | XMS_ITS | Referral Summary ---
Author Organization [facility] Address [address] [place] [address] Care Team Providers Care Program Project Analyst Name Role Phone Sultan Corby Jenkins MD Unavailable [phone] Karma Nayak NP Primary Care Provider Encounters Date Type Department Care Team Description 12/02/2024 7:45 AM CROP FARM WORKERS Ancillary Procedure [facility] Medical [facility] Cardiology [facility] [address] [address] Sinus node dysfunction (CMS/HCC) (HCC); Paroxysmal atrial fibrillation (CMS/HCC) (HCC); Pacemaker 10/07/2024 3:15 PM CROP FARM WORKERS Office Visit [facility] Medical [facility] Cardiology [address] [place] [address] [address] Sultan Corby Jenkins MD Intermittent atrial fibrillation (CMS/HCC) (HCC) (Primary Dx) from Last 3 Months Allergies No known active allergies Medications levothyroxine (SYNTHROID, LEVOTHROID) 100 mcg tablet Take 1 tablet (100 mcg total) by mouth daily 0 9 Active vit D3-vit V-ffqzscuff-gqu s [phone] mshm-noy-qb-mg tablet Take by mouth daily Active triamcinolone (KENALOG) 0.1 % cream APPLY TOPICALLY TO THE AFFECTED AREA ON ARMS TWICE DAILY NEEDED. 2 Active atenoloL (TENORMIN) 50 mg tablet TAKE 1 TABLET(50 MG) BY MOUTH DAILY 90 tablet 1 4 Active Active Problems Problem Noted Date Diagnosed Date vermin exterminator current use of anticoagulant 4 Sick sinus syndrome due to SA node dysfunction ( CMS/HCC) 02/11/2024 Morbid obesity 04/12/2020 Assessment & Plan (03/30/2021 7:03 PM CDT): Has been encouraged to lose weight. Assessment & Plan (11/29/2020 2:20 PM CROP FARM WORKERS): Encouraged dieting weight loss Assessment & Plan (09/30/2020 2:36 PM CROP FARM WORKERS): Lose Weight. Assessment & Plan (04/12/2020 2:48 [...] life. Assessment & Plan (11/29/2020 1:54 PM CROP FARM WORKERS): Check today shows normal function. Underlying rhythm [...] follows. Assessment & Plan (10/06/2019 2:47 PM CROP FARM WORKERS): Check today shows normal function. Underlying rhythm [...] for years. 32% AFib Paroxysmal atrial fibrillation ([facility]) 019 Assessment & Plan (03/14/2021 2:30 PM [...] Assessment & Plan (04/12/2020 2:48 PM CDT): [place] unchanged at 32%. And monthly trend line [...] 458. Assessment & Plan (10/06/2019 2:46 PM CROP FARM WORKERS): [place] unchanged around 30%. Continue anticoagulation. Rates controlled [...] much change from check 6 months ago. [place] slightly higher. Discussed potential for ablation. Patient not interested at this time. Continue sotalol continue Xarelto. Anticoagulation management encounter 03/24/2019 Assessment & Plan (03/31/2021 1:03 PM CDT): Xarelto to prevent systemic embolization from the atrial fibrillation. Assessment & Plan (03/14/2021 2:31 PM CDT): High chads Vasc. Continue Xarelto. Assessment & Plan (09/30/2020 2:35 PM CROP FARM WORKERS): Xarelto to prevent systemic embolization from the atrial fibrillation. Assessment & Plan (04/12/2020 2:49 PM CDT): Continue Xarelto. Upcoming labs to confirm GFR remains greater than 50 Assessment & Plan (03/25/2020 12:58 PM CDT): Xarelto. Assessment & Plan (10/06/2019 2:46 PM CROP FARM WORKERS): Continue Xarelto 20 mg daily Assessment & Plan (03/24/2019 3:33 PM CDT): Xarelto 20 mg q.h.s. Sinus node dysfunction (CMS/HCC) 06/12/2016 Intermittent atrial fibrillation (CMS/HCC) 06/01 Assessment & Plan (03/31/2021 1:01 PM CDT): Underwent cryoablation of the intermittent atrial fibrillation on 01/31/2021. No longer on the sotalol. Remains on the Xarelto to prevent systemic embolization. Assessment & Plan (11/29/2020 2:20 PM CROP FARM WORKERS): [place] up to 48% from 33% on last [...] proceed. Assessment & Plan (09/30/2020 2:35 PM CROP FARM WORKERS): Sotalol to prevent the recurrence of atrial [...] Minimal. Assessment & Plan (09/29/2020 9:01 PM CROP FARM WORKERS): Due to premature supraventricular beats and due [...] 06/01/2016 Assessment & Plan (09/29/2020 9:02 PM CROP FARM WORKERS): Long history of symptomatic premature supraventricular beats. [...] recurrence. Assessment & Plan (09/29/2020 9:03 PM CROP FARM WORKERS): History of syncope with Lopressor. No recurrence. Assessment & Plan (03/24/2020 8:32 PM CDT): History of syncope with Lopressor. No recurrence. Assessment & Plan (06/15/2019 9:19 PM CDT): History of syncope with Lopressor. No recurrence lately. Hyperlipidemia 06/01/2016 Assessment & Plan (03/30/2021 7:02 PM CDT): Statins are poorly tolerated. Assessment & Plan (09/29/2020 9:00 PM CROP FARM WORKERS): Statins are poorly tolerated. Assessment & Plan (03/24/2020 8:32 PM CDT): Statins are poorly tolerated. Assessment & Plan (06/15/2019 9:20 PM CDT): Statins are poorly tolerated. History of permanent cardiac pacemaker placement 06/01/2016 Paroxysmal supraventricular tachycardia 06/01/20 16 Assessment & Plan (09/29/2020 9:02 PM CR[employer] FARM WORKERS): Sotalol. Cardizem. Assessment & Plan (03/24/2020 8:33 [...] on file Legal Sex Female 7:34 AM CROP FARM WORKERS Gender Identity Not on file Sexual Orientation Not on file Last Filed Vital Signs Vital Sign Reading Time Taken Comments Blood Pressure 130/76 10/07/2024 2:52 PM CR[employer] FARM WORKERS Pulse 84 10/07/2024 2:52 PM CR[employer] FARM WORKERS Temperature 36.3 C (97.3 F) 03/16/2022 2:03 PM CDT Respiratory Rate 16 02/21/2024 8:48 AM CDT Oxygen Saturation 98% 10/07/2024 2:52 PM CROP FARM WORKERS Inhaled Oxygen Concentration - - Weight 88.9 kg (196 lb) 10/07/2024 2:52 PM CROP FARM WORKERS Height 157.5 cm (5' 2 ) 10/02/2023 1:20 PM CROP FARM WORKERS Body Mass Index 35.85 10/02/2023 1:20 PM [employer]ARM WORKERS Plan of Treatment Not on file Medical Devices Implanted Type Area School Bus Monitor Device Identifier Shelf Expiration Date Model / Serial / Lot [employer] C.[employer]M. Accolade Latitude Nxt Pacesafe Easyview 4.45x5.02cm 2 Chamber Is1 L311 - [id number] Implanted:Qty: 1 on 02/21/2024 by Joseph Gonzalez MD at [facility] [employer] C.[employer].M. L311 / / Insurance MEDICARE MEDICARE [facility] MEDICARE SUPPLEMENT Care Teams Program Project Analyst Relationship Specialty Start Date End Date Karma Nayak NP [address] [place] [address] PCP - General Nurse Practitioner 10/02/23 Sultan Corby Jenkins MD [address] [facility] [address] [address] Suppository Molding Machine Operator Cardiology 05/29/19
--- OUTSIDE RECORDS SUMMARY | 2024-12-15 18:33 | XMS_ITS | Encounter Summary ---
Author Organization [facility] Facility Care Team Providers Care Submarine Advisory Team Watch Officer Name Role Phone Deven Brown MD Primary Care Provider [phone] Joby Lewis DO Primary Care Provider [phone] Sultan Corby Jenkins MD Unavailable [phone] Karma Nayak NP Primary Care Provider [phone] Encounter Details Date Type Department Care Team (Latest Contact Info) Description 06/12/2016 Orders Only [facility] CLINCONV Provider, MD Esperanza [address] [place] [address] Social History Tobacco Use Types Packs/Day Years Used Date Smoking Tobacco: Never Assessed Comments Unknown Sex and Gender Information Value Date Recorded Sex Assigned at Not on file Legal Sex Female 7:34 AM STENCIL MACHINE OPERATOR Gender Identity Not on file Sexual Orientation [...] AM CDT Ordered by an unspecified provider. [facility] Provider CV CARDIAC SERVICES PROCE DURES Final Result * CARDIOLOGY REPORT (06/12/2016 12:00 AM CDT) Anatomical Region Laterality Modality Other Narrative 06/12/2016 12:00 AM CDT Ordered by an unspecified provider. [facility] Provider CV CARDIAC SERVICES PROCE DURES Final Result * CARDIOLOGY REPORT (06/12/2016 12:00 AM CDT) Anatomical Region Laterality Modality Other Narrative 06/12/2016 12:00 AM CDT Ordered by an unspecified provider. [facility] Provider CV CARDIAC SERVICES PROCE DURES Final Result * CARDIOLOGY REPORT (06/12/2016 12:00 AM CDT) Anatomical Region Laterality Modality Other Narrative 06/12/2016 12:00 AM CDT Ordered by an unspecified provider. [facility] Provider CV CARDIAC SERVICES PROCE DURES Final Result * CARDIOLOGY REPORT (06/12/2016 12:00 AM CDT) Anatomical Region Laterality Modality Other Narrative 06/12/2016 12:00 AM CDT Ordered by an unspecified provider. [facility] Provider CV CARDIAC SERVICES PROCE DURES Final Result documented in this encounter Visit Diagnoses Not on filedocumented in this encounter Care Teams Submarine Advisory Team Watch Officer Relationship Specialty Start Date End Date Deven Brown MD [address] [place] [address] PCP - General Internal Medicine 03/19/19 03/23/19 Joby Lewis DO [address] [place] [address] PCP - General Internal Medicine 03/24/19 10/01/23 Karma Nayak NP [address] [place] [id number] PCP - General Nurse Practitioner 10/02/23 Sultan Corby Jenkins MD [address] [facility] [address] [address] Asphalt Blender Cardiology 05/29/19 documented as of this encounter
--- OUTSIDE RECORDS SUMMARY | 2024-12-15 18:33 | XMS_ITS | Clinical Summary ---
Author Organization [facility] at [facility] Address [address] [place] [address] Care Team Providers Care Embedded Systems Software Engineer Name Role Phone Sultan Corby Jenkins MD Unavailable [phone] Karma Nayak NP Primary Care Provider [phone] Allergies No known active allergies Medications levothyroxine (SYNTHROID, LEVOTHROID) 100 mcg tablet Take 1 tablet (100 mcg total) by mouth daily 0 9 Active vit D3-vit Y-sayopjdbw-wpc s [phone] ivfh-oue-fn-mg tablet Take by mouth daily Active triamcinolone (KENALOG) 0.1 % cream APPLY TOPICALLY TO THE AFFECTED AREA ON ARMS TWICE DAILY NEEDED. 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 Assessment & Plan (11/29/2020 2:20 PM HISTOPATHOLOGY TECHNICIAN): Encouraged dieting weight loss Assessment & Plan (09/30/2020 2:36 PM HISTOPATHOLOGY TECHNICIAN): Lose Weight. Assessment & Plan (04/12/2020 2:48 [...] life. Assessment & Plan (11/29/2020 1:54 PM HISTOPATHOLOGY TECHNICIAN): Check today shows normal function. Underlying rhythm [...] follows. Assessment & Plan (10/06/2019 2:47 PM HISTOPATHOLOGY TECHNICIAN): Check today shows normal function. Underlying rhythm [...] Assessment & Plan (04/12/2020 2:48 PM CDT): [place] unchanged at 32%. And monthly trend line [...] 458. Assessment & Plan (10/06/2019 2:46 PM HISTOPATHOLOGY TECHNICIAN): [place] unchanged around 30%. Continue anticoagulation. Rates controlled [...] much change from check 6 months ago. [place] slightly higher. Discussed potential for ablation. Patient not interested at this time. Continue sotalol continue Xarelto. Anticoagulation management encounter 03/24/2019 Assessment & Plan (03/31/2021 1:03 PM CDT): Xarelto to prevent systemic embolization from the atrial fibrillation. Assessment & Plan (03/14/2021 2:31 PM CDT): High chads Vasc. Continue Xarelto. Assessment & Plan (09/30/2020 2:35 PM HISTOPATHOLOGY TECHNICIAN): Xarelto to prevent systemic embolization from the atrial fibrillation. Assessment & Plan (04/12/2020 2:49 PM CDT): Continue Xarelto. Upcoming labs to confirm GFR remains greater than 50 Assessment & Plan (03/25/2020 12:58 PM CDT): Xarelto. Assessment & Plan (10/06/2019 2:46 PM HISTOPATHOLOGY TECHNICIAN): Continue Xarelto 20 mg daily Assessment & Plan (03/24/2019 3:33 PM CDT): Xarelto 20 mg q.h.s. Sinus node dysfunction (CMS/HCC) 06/12/2016 Intermittent atrial fibrillation (CMS/HCC) 06/01 Assessment & Plan (03/31/2021 1:01 PM CDT): Underwent cryoablation of the intermittent atrial fibrillation on 01/31/2021. No longer on the sotalol. Remains on the Xarelto to prevent systemic embolization. Assessment & Plan (11/29/2020 2:20 PM HISTOPATHOLOGY TECHNICIAN): [place] up to 48% from 33% on last [...] proceed. Assessment & Plan (09/30/2020 2:35 PM HISTOPATHOLOGY TECHNICIAN): Sotalol to prevent the recurrence of atrial [...] Minimal. Assessment & Plan (09/29/2020 9:01 PM HISTOPATHOLOGY TECHNICIAN): Due to premature supraventricular beats and due [...] 06/01/2016 Assessment & Plan (09/29/2020 9:02 PM HISTOPATHOLOGY TECHNICIAN): Long history of symptomatic premature supraventricular beats. [...] recurrence. Assessment & Plan (09/29/2020 9:03 PM HISTOPATHOLOGY TECHNICIAN): History of syncope with Lopressor. No recurrence. Assessment & Plan (03/24/2020 8:32 PM CDT): History of syncope with Lopressor. No recurrence. Assessment & Plan (06/15/2019 9:19 PM CDT): History of syncope with Lopressor. No recurrence lately. Hyperlipidemia 06/01/2016 Assessment & Plan (03/30/2021 7:02 PM CDT): Statins are poorly tolerated. Assessment & Plan (09/29/2020 9:00 PM HISTOPATHOLOGY TECHNICIAN): Statins are poorly tolerated. Assessment & Plan (03/24/2020 8:32 PM CDT): Statins are poorly tolerated. Assessment & Plan (06/15/2019 9:20 PM CDT): Statins are poorly tolerated. History of permanent cardiac pacemaker placement 06/01/2016 Paroxysmal supraventricular tachycardia 06/01/20 16 Assessment & Plan (09/29/2020 9:02 PM HISTOPATHOLOGY TECHNICIAN): Sotalol. Cardizem. Assessment & Plan (03/24/2020 8:33 PM CDT): Cardizem 60 mg p.o. b.i.d.. Assessment & Plan (06/15/2019 9:20 PM CDT): Continue the Cardizem 60 mg p.o. B.i.d. History of syncope 06/01/2016 Status post ablation of atrial fibrillation 05/21 Encounters Date Type Department Care Team Description 12/02/2024 7:45 AM HISTOPATHOLOGY TECHNICIAN Ancillary Procedure [facility] Cardiology [facility] [address] [place] [address] Sinus node dysfunction (CMS/HCC) (HCC); Paroxysmal atrial fibrillation (CMS/HCC) (HCC); Pacemaker 10/07/2024 3:15 PM HISTOPATHOLOGY TECHNICIAN Office Visit [facility] Cardiology [address] [facility] [address] [place] [address] Sultan Corby Jenkins MD Intermittent atrial fibrillation (CMS/HCC) (HCC) (Primary Dx) from Last 3 Months Surgical History Surgery [...] on file Legal Sex Female 7:34 AM HISTOPATHOLOGY TECHNICIAN Gender Identity Not on file Sexual Orientation Not on file Obstetrics History Last Filed Vital Signs Vital Sign Reading Time Taken Comments Blood Pressure 130/76 10/07/2024 2:52 PM HISTOPATHOLOGY TECHNICIAN Pulse 84 10/07/2024 2:52 PM HISTOPATHOLOGY TECHNICIAN Temperature 36.3 C (97.3 F) 03/16/2022 2:03 PM CDT Respiratory Rate 16 02/21/2024 8:48 AM CDT Oxygen Saturation 98% 10/07/2024 2:52 PM HISTOPATHOLOGY TECHNICIAN Inhaled Oxygen Concentration - - Weight 88.9 kg (196 lb) 10/07/2024 2:52 PM HISTOPATHOLOGY TECHNICIAN Height 157.5 cm (5' 2 ) 10/02/2023 1:20 PM HISTOPATHOLOGY TECHNICIAN Body Mass Index 35.85 10/02/2023 1:20 PM HISTOPATHOLOGY TECHNICIAN Plan of Treatment Health Maintenance Due Date Last Done Comments Depression Screening 1945 Hepatitis C Screening 1945 Osteoporosis Screening-Bone Density Scan 1945 DTaP/Tdap/Td Vaccine (1 - Tdap) 1957 Hepatitis B Screening 1964 Pneumococcal vaccine 65+ (1 of 1 - PCV) 1996 Zoster Vaccine (1 of 2) 1996 Well Visit 65+ 2011 Influenza Vaccine (#1) 2024 9, 08/17/2018, 07/23/2016, Additional history exists Fall Risk Assessment 02/20/2025 02/21/2024 Medical Devices Implanted Type Area New Grad Rn Device Identifier Shelf Expiration Date Model / Serial / Lot [employer] C.[employer]M. Accolade Latitude Nxt Pacesafe Easyview 4.45x5.02cm 2 Chamber Is1 L311 - [id number] Implanted:Qty: 1 on 02/21/2024 by Joseph Gonzalez MD at [facility] [employer] C[employer]. L311 / / Insurance MEDICARE MEDICARE [employer] MEDICARE SUPPLEMENT Care Teams Embedded Systems Software Engineer Relationship Specialty Start Date End Date Karma Nayak NP [address] [place] [address] PCP - General Nurse Practitioner 10/02/23 Sultan Corby Jenkins MD [address] [facility] [address] [address] Patternmaker Sample Cardiology 05/29/19
--- OUTSIDE RECORDS SUMMARY | 2024-12-15 18:33 | XMS_ITS | Encounter Summary ---
Author Organization [facility] Facility Care Team Providers Care Stage Electrician Name Role Phone Deven Brown MD Primary Care Provider [phone] Joby Lewis DO Primary Care Provider [phone] Sultan Corby Jenkins MD Unavailable [phone] Karma Nayak NP Primary Care Provider [phone] Encounter Details Date Type Department Care Team (Latest Contact Info) Description 11/10/2013 Orders Only [facility]G CLINCONV Provider, MD Esperanza [address] [place] [address] Social History Tobacco Use Types Packs/Day Years Used Date Smoking Tobacco: Never Assessed Comments Unknown Sex and Gender Information Value Date Recorded Sex Assigned at Not on file Legal Sex Female 7:34 AM TRANSFORMATION LEAD Gender Identity Not on file Sexual Orientation [...] on filedocumented in this encounter Care Teams Stage Electrician Relationship Specialty Start Date End Date Deven Brown MD [address] [place] [address] PCP - General Internal Medicine 03/19/19 03/23/19 Joby Lewis DO [address] [place] [address] PCP - General Internal Medicine 03/24/19 10/01/23 Karma Nayak NP [address] [place], [place] [address] PCP - General Nurse Practitioner 10/02/23 Sultan Corby Jenkins MD [address] [facility] [address] [address] Sales And Service Officer Cardiology 05/29/19 documented as of this encounter
--- OUTSIDE RECORDS SUMMARY | 2024-12-15 18:33 | XMS_ITS | Encounter Summary ---
Author Organization [facility] Facility Care Team Providers Care Audiology Director Name Role Phone Deven Brown MD Primary Care Provider [phone] Joby Lewis DO Primary Care Provider [phone] Sultan Corby Jenkins MD Unavailable [phone] Karma Nayak NP Primary Care Provider [phone] Encounter Details Date Type Department Care Team (Latest Contact Info) Description 11/10/2015 Orders Only MMG CLINCONV Provider, MD Esperanza [address] [place] [address] Social History Tobacco Use Types Packs/Day Years Used Date Smoking Tobacco: Never Assessed Comments Unknown Sex and Gender Information Value Date Recorded Sex Assigned at Not on file Legal Sex Female 7:34 AM CASINO ACCOUNTANT Gender Identity Not on file Sexual Orientation [...] on filedocumented in this encounter Care Teams Audiology Director Relationship Specialty Start Date End Date Deven Brown MD [address] [place] [address] PCP - General Internal Medicine 03/19/19 03/23/19 Joby Lewis DO [address] [place] [address] PCP - General Internal Medicine 03/24/19 10/01/23 Karma Nayak NP [address] [place] [address] PCP - General Nurse Practitioner 10/02/23 Sultan Corby Jenkins MD [address] [facility] [address] [address] Hat Body Inspector Cardiology 05/29/19 documented as of this encounter
--- OUTSIDE RECORDS SUMMARY | 2024-12-15 18:33 | XMS_ITS | Encounter Summary ---
Author Organization [facility] Facility Care Team Providers Care Ruching Machine Operator Name Role Phone Deven Brown MD Primary Care Provider [phone] Joby Lewis DO Primary Care Provider [phone] Sultan Corby Jenkins MD Unavailable [phone] Karma Nayak NP Primary Care Provider [phone] Encounter Details Date Type Department Care Team (Latest Contact Info) Description 07/01/2018 Orders Only MMG CLINCONV Provider, MD Esperanza [address] [place] [address] Social History Tobacco Use Types Packs/Day Years Used Date Smoking Tobacco: Never Assessed Comments Unknown Sex and Gender Information Value Date Recorded Sex Assigned at Not on file Legal Sex Female 7:34 AM AVIATION PROJECT MANAGER Gender Identity Not on file Sexual [...] on filedocumented in this encounter Care Teams Ruching Machine Operator Relationship Specialty Start Date End Date Deven Brown MD [address] [place] [address] PCP - General Internal Medicine 03/19/19 03/23/19 Joby Lewis DO [address] [place] [address] PCP - General Internal Medicine 03/24/19 10/01/23 Karma Nayak NP [address] [place] [address] PCP - General Nurse Practitioner 10/02/23 Sultan Corby Jenkins MD [address] [facility] [address] [place] [address] Pvc Monitor Cardiology 05/29/19 documented as of this encounter
--- OUTSIDE RECORDS SUMMARY | 2024-12-15 18:33 | XMS_ITS | Referral Summary ---
Author Organization [facility] Address [address] [facility] [place] [address] Care Team Providers Care Computer Support Specialist Instructor Name Role Phone Sher Nelson MD Primary Care Provider [phone] Source Comments [facility],non-owned Affiliates and Associated Physician Practices is amultiple site organization consisting of ambulatory clinics and hospital sitesin [place], [place], [place] and [place]. This disclosure is being madepursuant to the Care Everywhere program and may not contain all information available regarding this patient. Last updated 18.[facility] Social History Tobacco Use Types Packs/Day Years Used Date Smoking Tobacco: Never Assessed Sex and Gender Information Value Date Recorded Sex Assigned at Not on file Gender Identity Not on file Sexual Orientation Not on file Plan of Treatment Not on file Care Teams Computer Support Specialist Instructor Relationship Specialty [place] [address] [place] [id number] PCP - General 10/31/22
--- OUTSIDE RECORDS SUMMARY | 2024-12-15 18:33 | XMS_ITS | Encounter Summary ---
Author Organization [facility] Facility Care Team Providers Care Certification And Selection Specialist Name Role Phone Deven Brown MD Primary Care Provider [phone] Joby Lewis DO Primary Care Provider [phone] Sultan Corby Jenkins MD Unavailable [phone] Karma Nayak NP Primary Care Provider [phone] Encounter Details Date Type Department Care Team (Latest Contact Info) Description 12/24/2017 Orders Only MMG CLINCONV Provider, MD Esperanza [address] [place] [address] Social History Tobacco Use Types Packs/Day Years Used Date Smoking Tobacco: Never Assessed Comments Unknown Sex and Gender Information Value Date Recorded Sex Assigned at Not on file Legal Sex Female 7:34 AM FINANCE ANALYST Gender Identity Not on file Sexual Orientation Not on file documented as of this encounter Plan of Treatment Not on file documented as of this encounter Procedures Procedure Name Priority Date/Time Associated Diagnosis Comments CARDIOLOGY REPORT 12/24/2017 12: 00 AM FINANCE ANALYST CARDIOLOGY REPORT 12/24/2017 12: 00 AM FINANCE ANALYST CARDIOLOGY REPORT 12/24/2017 12: 00 AM FINANCE ANALYST documented in this encounter Results * CARDIOLOGY REPORT (12/24/2017 12:00 AM FINANCE ANALYST) Anatomical Region Laterality Modality Other Narrative 12/24/2017 12:00 AM FINANCE ANALYST Ordered by an unspecified provider. us Historical Provider CV CARDIAC SERVICES PROCE DURES Final Result * CARDIOLOGY REPORT (12/24/2017 12:00 AM FINANCE ANALYST) Anatomical Region Laterality Modality Other Narrative 12/24/2017 12:00 AM FINANCE ANALYST Ordered by an unspecified provider. Historical Provider CV CARDIAC SERVICES PROCE DURES Final Result * CARDIOLOGY REPORT (12/24/2017 12:00 AM FINANCE ANALYST) Anatomical Region Laterality Modality Other Narrative 12/24/2017 12:00 AM FINANCE ANALYST Ordered by an unspecified provider. Historical Provider CV CARDIAC SERVICES PROCE DURES Final Result documented in this encounter Visit Diagnoses Not on filedocumented in this encounter Care Teams Certification And Selection Specialist Relationship Specialty Start Date End Date Deven Brown MD [address] [place] [address] PCP - General Internal Medicine 03/19/19 03/23/19 Joby Lewis DO [address] [place] [address] PCP - General Internal Medicine 03/24/19 10/01/23 Karma Nayak NP [address] [place] [address] PCP - General Nurse Practitioner 10/02/23 Sultan Corby Jenkins MD [address] [facility] [address] [place] [address] Production Hardener Cardiology 05/29/19 documented as of this encounter
--- OUTSIDE RECORDS SUMMARY | 2024-12-15 18:33 | XMS_ITS | Encounter Summary ---
Author Organization [facility] Address [address] [place] [address] Care Team Providers Care Dance Historian Name Role Phone Sher Nelson MD Primary Care Provider [phone] Encounter Details Date Type Department Care Team (Late st Contact Info) Description 04/22/2024 Lab Requisition [facility] - DermPath Lab [address] [facility], [place] [id number] Letitia Mehta MD [address] [facility] 3 DEPT [place] [address] Social History Tobacco Use Types Packs/Day Years [...] 10:52 AM CDT) Case Report Dermatopathology Report Case: [id number] Authorizing Provider: Letitia Mehta MD Collected: 04/22/2024 10:52 AM Ordering Location: [facility] - Received: 04/24/2024 08:33 AM DermPath Lab Pathologist: Abril Lujan MD Specimen: Skin, left nasal crease 4:42 PM CDT DERMATOPATHOLOGY LABORATORY Final Diagnosis Specimen A. SKIN, left nasal crease: BASAL CELL CARCINOMA, NODULAR TYPE (C44.311) 07/08/202 4 4:42 PM CDT DERMATOPATHOLOGY LABORATORY Clinical [...] characteristic determined by the Dermatopathology Laboratory at [facility], directed by Dr. Selena Gilman. These tests need not be, and therefore are not, approved by the [place] Food and Drug Administration. The tests are used for clinical purposes. Billing Codes Specimen Charges Stain Charges 91122 1 4 4:42 PM CDT DERMATOPATHOLOGY LABORATORY Embedded Images 4 4:42 PM CDT DERMATOPATHOLOGY LABORATORY Pathology/Cytolo gy TISSUE SPECIMEN FROM SKIN / Unknown 04/22/2024 10:52 AM CDT 04/24/2024 8:33 AM CDT Letitia Mehta MD LAB - PATHOLOGY/CYT OLOGY ORDERABLES DERMATOPATHOLOGY LABORATORY [facility] - Department of Dermatology [address], 3rd Floor [place], [place] [address] [place] [address] documented in this encounter Visit Diagnoses Not on filedocumented in this encounter Care Teams Dance Historian Relationship Specialty [place] [address] [place] [id number] PCP - General 10/31/22 documented as of this encounter
--- OUTSIDE RECORDS SUMMARY | 2024-12-15 18:33 | XMS_ITS | Encounter Summary ---
Author Organization [facility] Facility Care Team Providers Care Embedded Linux Engineer Name Role Phone Deven Brown MD Primary Care Provider [phone] Joby Lewis DO Primary Care Provider [phone] Sultan Corby Jenkins MD Unavailable [phone] Karma Nayak NP Primary Care Provider [phone] Encounter Details Date Type Department Care Team (Latest Contact Info) Description 07/20/2015 Orders Only MMG CLINCONV Provider, MD Esperanza [address] [place] [address] Social History Tobacco Use Types Packs/Day Years Used Date Smoking Tobacco: Never Assessed Comments Unknown Sex and Gender Information Value Date Recorded Sex Assigned at Not on file Legal Sex Female 7:34 AM HEALTHCARE BUSINESS ANALYST Gender Identity Not on file Sexual [...] on filedocumented in this encounter Care Teams Embedded Linux Engineer Relationship Specialty Start Date End Date Deven Brown MD [address] [place] [address] PCP - General Internal Medicine 03/19/19 03/23/19 Joby Lewis DO [address] [place] [address] PCP - General Internal Medicine 03/24/19 10/01/23 Karma Nayak NP [address] [place] [address] PCP - General Nurse Practitioner 10/02/23 Sultan Corby Jenkins MD [address] [facility] [facility] [address] [address] Senior Administrative Associate Cardiology 05/29/19 documented as of this encounter
--- OUTSIDE RECORDS SUMMARY | 2024-12-15 18:33 | XMS_ITS | Encounter Summary ---
Author Organization [facility] Facility Care Team Providers Care Associate Professor Of Philosophy Name Role Phone Deven Brown MD Primary Care Provider [phone] Joby Lewis DO Primary Care Provider [phone] Sultan Corby Jenkins MD Unavailable [phone] Karma Nayak NP Primary Care Provider [phone] Encounter Details Date Type Department Care Team (Latest Contact Info) Description 06/18/2017 Orders Only MMG CLINCONV Provider, MD Esperanza [address] [place] [address] Social History Tobacco Use Types Packs/Day Years Used Date Smoking Tobacco: Never Assessed Comments Unknown Sex and Gender Information Value Date Recorded Sex Assigned at Not on file Legal Sex Female 7:34 AM LANGUAGE TEACHER Gender Identity Not on file Sexual Orientation [...] AM CDT Ordered by an unspecified provider. [facility] Provider CV CARDIAC SERVICES PROCE DURES Final Result * CARDIOLOGY REPORT (06/18/2017 12:00 AM CDT) Anatomical Region Laterality Modality Other Narrative 06/18/2017 12:00 AM CDT Ordered by an unspecified provider. [facility] Provider CV CARDIAC SERVICES PROCE DURES Final Result * CARDIOLOGY REPORT (06/18/2017 12:00 AM CDT) Anatomical Region Laterality Modality Other Narrative 06/18/2017 12:00 AM CDT Ordered by an unspecified provider. [facility] Provider CV CARDIAC SERVICES PROCE DURES Final Result * CARDIOLOGY REPORT (06/18/2017 12:00 AM CDT) Anatomical Region Laterality Modality Other Narrative 06/18/2017 12:00 AM CDT Ordered by an unspecified provider. [facility] Provider CV CARDIAC SERVICES PROCE DURES Final Result * CARDIOLOGY REPORT (06/18/2017 12:00 AM CDT) Anatomical Region Laterality Modality Other Narrative 06/18/2017 12:00 AM CDT Ordered by an unspecified provider. [facility] Provider CV CARDIAC SERVICES PROCE DURES Final Result documented in this encounter Visit Diagnoses Not on filedocumented in this encounter Care Teams Associate Professor Of Philosophy Relationship Specialty Start Date End Date Deven Brown MD [address] [place] [address] PCP - General Internal Medicine 03/19/19 03/23/19 Joby Lewis DO [address] [place] [address] PCP - General Internal Medicine 03/24/19 10/01/23 Karma Nayak NP [address] [place] [id number] PCP - General Nurse Practitioner 10/02/23 Sultan Corby Jenkins MD [address] [facility] [address] [address] Sheriffs Cardiology 05/29/19 documented as of this encounter
--- OUTSIDE RECORDS SUMMARY | 2024-12-15 18:33 | XMS_ITS | Patient Health Summary ---
Author Organization [facility] Address [address] [place] [address] Care Team Providers Care Pe Manager Name Role Phone Sher Nelson MD Primary Care Provider [phone] Note from [facility],non-owned Affiliates and Associated Physician Practices is amultiple site organization consisting of ambulatory clinics and hospital sitesin [place], [place], [place] and [place]. This disclosure is being madepursuant to the Care Everywhere program and may not contain all information available regarding this patient. Last updated 18.[facility] Social History Tobacco Use Types Packs/Day Years [...] period is included. Case Report Dermatopathology Report Case: [id number] Authorizing Provider: Letitia Mehta MD Collected: 04/22/2024 10:52 AM Ordering Location: [facility] - Received: 04/24/2024 08:33 AM DermPath Lab Pathologist: Abril Lujan MD Specimen: Skin, left nasal crease 4:42 PM CDT DERMATOPATHOLOGY LABORATORY Final Diagnosis Specimen A. SKIN, left nasal crease: BASAL CELL CARCINOMA, NODULAR TYPE (C44.311) 4:42 PM CDT DERMATOPATHOLOGY LABORATORY Clinical History [...] characteristic determined by the Dermatopathology Laboratory at [facility], directed by Dr. Selena Gilman. These tests need not be, and therefore are not, approved by the [place] Food and Drug Administration. The tests are used for clinical purposes. Billing Codes Specimen Charges Stain Charges 37273 1 4 4:42 PM CDT DERMATOPATHOLOGY LABORATORY Embedded Images 4 4:42 PM CDT DERMATOPATHOLOGY LABORATORY Pathology/Cytolo gy TISSUE SPECIMEN FROM SKIN / Unknown 04/22/2024 10:52 AM CDT 04/24/2024 8:33 AM CDT Letitia Mehta MD LAB - PATHOLOGY/CYT OLOGY ORDERABLES DERMATOPATHOLOGY LABORATORY [facility] - Department of Dermatology [facility] [address] [place] [address], [address] [place] [address], [facility] [phone] Care Teams Pe Manager Relationship Specialty [place] [address] [address] PCP - General 10/31/22
--- OUTSIDE RECORDS SUMMARY | 2024-12-15 18:33 | XMS_ITS | Encounter Summary ---
Author Organization [facility] Facility Care Team Providers Care Appeals Reviewer Veteran Name Role Phone Deven Brown MD Primary Care Provider Joby Lewis DO Primary Care Provider [phone] Sultan Corby Jenkins MD Unavailable [phone] Karma Nayak NP Primary Care Provider [phone] Encounter Details Date Type Department Care Team (Latest Contact Info) Description 12/18/2016 Orders Only MMG CLINCONV Provider, MD Esperanza [address] [place] [address] Social History Tobacco Use Types Packs/Day Years Used Date Smoking Tobacco: Never Assessed Comments Unknown Sex and Gender Information Value Date Recorded Sex Assigned at Not on file Legal Sex Female 7:34 AM MANAGER PRINT Gender Identity Not on file Sexual Orientation Not on file documented as of this encounter Plan of Treatment Not on file documented as of this encounter Procedures Procedure Name Priority Date/Time Associated Diagnosis Comments CARDIOLOGY REPORT 01/15/2017 12: 00 AM CDT CARDIOLOGY REPORT 01/15/2017 12: 00 AM CDT CARDIOLOGY REPORT 12/19/2016 12: 00 AM MANAGER PRINT CARDIOLOGY REPORT 12/18/2016 12: 00 AM MANAGER PRINT CARDIOLOGY REPORT 12/18/2016 12: 00 AM MANAGER PRINT documented in this encounter Results * CARDIOLOGY REPORT (01/15/2017 12:00 AM CDT) Anatomical Region Laterality Modality Other Narrative 01/15/2017 12:00 AM CDT Ordered by an unspecified provider. [facility] Provider CV CARDIAC SERVICES PROCE DURES Final Result * CARDIOLOGY REPORT (01/15/2017 12:00 AM CDT) Anatomical Region Laterality Modality Other Narrative 01/15/2017 12:00 AM CDT Ordered by an unspecified provider. [facility] Provider CV CARDIAC SERVICES PROCE DURES Final Result * CARDIOLOGY REPORT (12/19/2016 12:00 AM MANAGER PRINT) Anatomical Region Laterality Modality Other Narrative 12/19/2016 12:00 AM MANAGER PRINT Ordered by an unspecified provider. [facility] Provider CV CARDIAC SERVICES PROCE DURES Final Result * CARDIOLOGY REPORT (12/18/2016 12:00 AM MANAGER PRINT) Anatomical Region Laterality Modality Other Narrative 12/18/2016 12:00 AM MANAGER PRINT Ordered by an unspecified provider. [facility] Provider CV CARDIAC SERVICES PROCE DURES Final Result * CARDIOLOGY REPORT (12/18/2016 12:00 AM MANAGER PRINT) Anatomical Region Laterality Modality Other Narrative 12/18/2016 12:00 AM MANAGER PRINT Ordered by an unspecified provider. [facility] Provider CV CARDIAC SERVICES PROCE DURES Final Result documented in this encounter Visit Diagnoses Not on filedocumented in this encounter Care Teams Appeals Reviewer Veteran Relationship Specialty Start Date End Date Deven Brown MD [address] [place] [address] PCP - General Internal Medicine 03/19/19 03/23/19 Joby Lewis DO [address] [place] [address] PCP - General Internal Medicine 03/24/19 10/01/23 Karma Nayak NP [address] [place] [address] PCP - General Nurse Practitioner 10/02/23 Sultan Corby Jenkins MD [address] [facility] [address] [address] Slip Sheeter Cardiology 05/29/19 documented as of this encounter
--- OUTSIDE RECORDS SUMMARY | 2024-12-15 18:33 | XMS_ITS | Encounter Summary ---
Author Organization [facility] Facility Care Team Providers Care Vp Genetic Name Role Phone Deven Brown MD Primary Care Provider [phone] Joby Lewis DO Primary Care Provider [phone] Sultan Corby Jenkins MD Unavailable [phone] Karma Nayak NP Primary Care Provider [phone] Encounter Details Date Type Department Care Team (Latest Contact Info) Description 07/21/2015 Orders Only MMG CLINCONV Provider, MD Esperanza [address] [place] [address] Social History Tobacco Use Types Packs/Day Years Used Date Smoking Tobacco: Never Assessed Comments Unknown Sex and Gender Information Value Date Recorded Sex Assigned at Not on file Legal Sex Female 7:34 AM BEHAVIORAL ASSISTANT Gender Identity Not on file Sexual Orientation [...] on filedocumented in this encounter Care Teams Vp Genetic Relationship Specialty Start Date End Date Deven Brown MD [address] [place] [address] PCP - General Internal Medicine 03/19/19 03/23/19 Joby Lewis DO [address] [place] [address] PCP - General Internal Medicine 03/24/19 10/01/23 Karma Nayak NP [address] [place], [place] [address] PCP - General Nurse Practitioner 10/02/23 Sultan Corby Jenkins MD [address] [facility] [address] [place] [address] [address] Fish Trapper Cardiology 05/29/19 documented as of this encounter
--- OUTSIDE RECORDS SUMMARY | 2024-12-15 18:33 | XMS_ITS | Encounter Summary ---
Author Organization [facility] Facility Care Team Providers Care Farm Service Adviser Name Role Phone Deven Brown MD Primary Care Provider [phone] Joby Lewis DO Primary Care Provider [phone] Sultan Corby Jenkins MD Unavailable [phone] Karma Nayak NP Primary Care Provider Encounter Details Date Type Department Care Team (Latest Contact Info) Description 01/26/2016 Orders Only MMG CLINCONV Provider, MD Esperanza [address] [place] [address] Social History Tobacco Use Types Packs/Day Years Used Date Smoking Tobacco: Never Assessed Comments Unknown Sex and Gender Information Value Date Recorded Sex Assigned at Not on file Legal Sex Female 7:34 AM PAYROLL PROCESSOR Gender Identity Not on file Sexual Orientation [...] on filedocumented in this encounter Care Teams Farm Service Adviser Relationship Specialty Start Date End Date Deven Brown MD [address] [place] [address] PCP - General Internal Medicine 03/19/19 03/23/19 Joby Lewis DO [address] [place] [address] PCP - General Internal Medicine 03/24/19 10/01/23 Karma Nayak NP [address] [place], [place] [id number] PCP - General Nurse Practitioner 10/02/23 Sultan Corby Jenkins MD [address] [facility] [address] [address] Medical Records Analyst Cardiology 05/29/19 documented as of this encounter
--- OUTSIDE RECORDS SUMMARY | 2024-12-15 18:33 | XMS_ITS | Encounter Summary ---
Author Organization [facility] Facility Care Team Providers Care Welding Equipment Repairer Supervisor Name Role Phone Deven Brown MD Primary Care Provider [phone] Joby Lewis DO Primary Care Provider [phone] Sultan Corby Jenkins MD Unavailable [phone] Karma Nayak NP Primary Care Provider [phone] Encounter Details Date Type Department Care Team (Latest Contact Info) Description 07/19/2015 Orders Only MMG CLINCONV Provider, MD Esperanza [address] [place] [address] Social History Tobacco Use Types Packs/Day Years Used Date Smoking Tobacco: Never Assessed Comments Unknown Sex and Gender Information Value Date Recorded Sex Assigned at Not on file Legal Sex Female 7:34 AM DISINTEGRATOR FEEDER Gender Identity Not on file Sexual Orientation [...] on filedocumented in this encounter Care Teams Welding Equipment Repairer Supervisor Relationship Specialty Start Date End Date Deven Brown MD [address] [place] [address] PCP - General Internal Medicine 03/19/19 03/23/19 Joby Lewis DO [address] [place] [address] PCP - General Internal Medicine 03/24/19 10/01/23 Karma Nayak NP [address] [place] [address] PCP - General Nurse Practitioner 10/02/23 Sultan Corby Jenkins MD [address] [facility] [address] [address] Chief Privacy Officer Cardiology 05/29/19 documented as of this encounter
== END 2024-12-15 16:15 | disposition home or self-care (01) ==
LOC: ANHIMG 16:15
PROVIDERS: PCP Nurse Practitioner Family; Visit Provider Obstetrics & Gynecology
DX: Z12.31 Encounter for screening mammogram for malignant neoplasm of breast (principal)
CPT/HCPCS: 77063; 77067

== ENCOUNTER 2025-05-05 07:22 | Outpatient (CLI) | payer MEDICARE, SELFPAY ==
--- OUTSIDE RECORDS SUMMARY | 2025-05-05 07:25 | XMS_ITS | Encounter Summary ---
Author Organization [facility] Facility Care Team Providers Care Cash Grain Grower Name Role Phone Deven Brown MD Primary Care Provider [phone] Joby Lewis DO Primary Care Provider [phone] Sultan Corby Jenkins MD Unavailable [phone] Karma Nayak NP Primary Care Provider Encounter Details Date Type Department Care Team (Latest Contact Info) Description 07/22/2015 Orders Only MMG CLINCONV Provider, MD Esperanza [address] [place] [address] Social History Tobacco Use Types Packs/Day Years Used Date Smoking Tobacco: Never Assessed Comments Unknown Sex and Gender Information Value Date Recorded Sex Assigned at Not on file Legal Sex Female 7:34 AM PROFESSOR OF HISTORY Gender Identity Not on file Sexual Orientation [...] on filedocumented in this encounter Care Teams Cash Grain Grower Relationship Specialty Start Date End Date Deven Brown MD [address] [place] [address] PCP - General Internal Medicine 03/19/19 03/23/19 Joby Lewis DO [address] [place] [address] PCP - General Internal Medicine 03/24/19 10/01/23 Karma Nayak NP [address] [facility] 1 [place] [address] PCP - General Nurse Practitioner 10/02/23 Sultan Corby Jenkins MD [address] [facility] [address] [address] Asbestos Shingle Roofer Cardiology 05/29/19 documented as of this encounter
--- OUTSIDE RECORDS SUMMARY | 2025-05-05 07:25 | XMS_ITS | Encounter Summary ---
Author Organization [facility] Facility Care Team Providers Care Counter Tacker Name Role Phone Deven Brown MD Primary Care Provider [phone] Joby Lewis DO Primary Care Provider [phone] Sultan Corby Jenkins MD Unavailable [phone] Karma Nayak NP Primary Care Provider [phone] Encounter Details Date Type Department Care Team (Latest Contact Info) Description 06/12/2016 Orders Only MMG CLINCONV Provider, MD Esperanza [address] [place] [address] Social History Tobacco Use Types Packs/Day Years Used Date Smoking Tobacco: Never Assessed Comments Unknown Sex and Gender Information Value Date Recorded Sex Assigned at Not on file Legal Sex Female 7:34 AM COSTUME DESIGN TEACHER Gender Identity Not on file Sexual [...] AM CDT Ordered by an unspecified provider. [facility] Provider CV CARDIAC SERVICES PROCE DURES Final Result * CARDIOLOGY REPORT (06/12/2016 12:00 AM CDT) Anatomical Region Laterality Modality Other Narrative 06/12/2016 12:00 AM CDT Ordered by an unspecified provider. [facility] Provider CV CARDIAC SERVICES PROCE DURES Final Result * CARDIOLOGY REPORT (06/12/2016 12:00 AM CDT) Anatomical Region Laterality Modality Other Narrative 06/12/2016 12:00 AM CDT Ordered by an unspecified provider. [facility] Provider CV CARDIAC SERVICES PROCE DURES Final Result * CARDIOLOGY REPORT (06/12/2016 12:00 AM CDT) Anatomical Region Laterality Modality Other Narrative 06/12/2016 12:00 AM CDT Ordered by an unspecified provider. [facility] Provider CV CARDIAC SERVICES PROCE DURES Final Result * CARDIOLOGY REPORT (06/12/2016 12:00 AM CDT) Anatomical Region Laterality Modality Other Narrative 06/12/2016 12:00 AM CDT Ordered by an unspecified provider. [facility] Provider CV CARDIAC SERVICES PROCE DURES Final Result documented in this encounter Visit Diagnoses Not on filedocumented in this encounter Care Teams Counter Tacker Relationship Specialty Start Date End Date Deven Brown MD [address] [place] [address] PCP - General Internal Medicine 03/19/19 03/23/19 Joby Lewis DO [address] [place] [address] PCP - General Internal Medicine 03/24/19 10/01/23 Karma Nayak NP [address] [place] [address] PCP - General Nurse Practitioner 10/02/23 Sultan Corby Jenkins MD [address] [facility] [address] [address] Career Technical Supervisor Cardiology 05/29/19 documented as of this encounter
--- OUTSIDE RECORDS SUMMARY | 2025-05-05 07:25 | XMS_ITS | Encounter Summary ---
Author Organization [facility] Facility Care Team Providers Care Preschool Teacher Name Role Phone Deven Brown MD Primary Care Provider Joby Lewis DO Primary Care Provider [phone] Sultan Corby Jenkins MD Unavailable [phone] Krama Nayak NP Primary Care Provider [phone] Encounter Details Date Type Department Care Team (Latest Contact Info) Description 06/18/2017 Orders Only MMG CLINCONV Provider, MD Esperanza [address] [place] [address] Social History Tobacco Use Types Packs/Day Years Used Date Smoking Tobacco: Never Assessed Comments Unknown Sex and Gender Information Value Date Recorded Sex Assigned at Not on file Legal Sex Female 7:34 AM INSURANCE VERIFICATION CLERK Gender Identity Not on file Sexual Orientation [...] CDT Ordered by an unspecified provider. [facility] Provider CV CARDIAC SERVICES PROCE DURES Final Result * CARDIOLOGY REPORT (06/18/2017 12:00 AM CDT) Anatomical Region Laterality Modality Other Narrative 06/18/2017 12:00 AM CDT Ordered by an unspecified provider. [facility] Provider CV CARDIAC SERVICES PROCE DURES Final Result * CARDIOLOGY REPORT (06/18/2017 12:00 AM CDT) Anatomical Region Laterality Modality Other Narrative 06/18/2017 12:00 AM CDT Ordered by an unspecified provider. [facility] Provider CV CARDIAC SERVICES PROCE DURES Final Result * CARDIOLOGY REPORT (06/18/2017 12:00 AM CDT) Anatomical Region Laterality Modality Other Narrative 06/18/2017 12:00 AM CDT Ordered by an unspecified provider. [facility] Provider CV CARDIAC SERVICES PROCE DURES Final Result * CARDIOLOGY REPORT (06/18/2017 12:00 AM CDT) Anatomical Region Laterality Modality Other Narrative 06/18/2017 12:00 AM CDT Ordered by an unspecified provider. [facility] Provider CV CARDIAC SERVICES PROCE DURES Final Result documented in this encounter Visit Diagnoses Not on filedocumented in this encounter Care Teams Preschool Teacher Relationship Specialty Start Date End Date Deven Brown MD [address] [place] [address] PCP - General Internal Medicine 03/19/19 03/23/19 Joby Lewis DO [address] [place] [address] PCP - General Internal Medicine 03/24/19 10/01/23 Karma Nayak NP [address] [place] [address] PCP - General Nurse Practitioner 10/02/23 Sultan Corby Jenkins MD [address] [facility] [address] [address] Manufactured Buildings Supervisor Cardiology 05/29/19 documented as of this encounter
--- OUTSIDE RECORDS SUMMARY | 2025-05-05 07:25 | XMS_ITS | Encounter Summary ---
Author Organization [facility] Facility Care Team Providers Care Medical Records Tech Name Role Phone Deven Brown MD Primary Care Provider [phone] oJby Lewis DO Primary Care Provider Sultan Corby Jenkins MD Unavailable [phone] Karma Nayak NP Primary Care Provider Encounter Details Date Type Department Care Team (Latest Contact Info) Description 11/10/2013 Orders Only MMG CLINCONV Provider, MD Esperanza [address] [place] [address] Social History Tobacco Use Types Packs/Day Years Used Date Smoking Tobacco: Never Assessed Comments Unknown Sex and Gender Information Value Date Recorded Sex Assigned at Not on file Legal Sex Female 7:34 AM WORKSITE WELLNESS PRACTITIONER Gender Identity Not on file Sexual Orientation [...] on filedocumented in this encounter Care Teams Medical Records Tech Relationship Specialty Start Date End Date Deven Brown MD [address] [place] [address] PCP - General Internal Medicine 03/19/19 03/23/19 Joby Lewis DO [address] [place] [address] PCP - General Internal Medicine 03/24/19 10/01/23 Karma Nayak NP [address] [place], [place] [address] PCP - General Nurse Practitioner 10/02/23 Sultan Corby Jenkins MD [address] [facility] [address] [address] Paleologist Cardiology 05/29/19 documented as of this encounter
--- OUTSIDE RECORDS SUMMARY | 2025-05-05 07:25 | XMS_ITS | Encounter Summary ---
Author Organization [facility] Facility Care Team Providers Care Segment Block Layer Name Role Phone Deven Brown MD Primary Care Provider [phone] Joby Lewis DO Primary Care Provider [phone] Sultan Corby Jenkins MD Unavailable [phone] Karma Nayak NP Primary Care Provider [phone] Encounter Details Date Type Department Care Team (Latest Contact Info) Description 01/26/2016 Orders Only MMG CLINCONV Provider, MD Esperanza [address] [place] [address] Social History Tobacco Use Types Packs/Day Years Used Date Smoking Tobacco: Never Assessed Comments Unknown Sex and Gender Information Value Date Recorded Sex Assigned at Not on file Legal Sex Female 7:34 AM PRODUCTION MANAGER Gender Identity Not on file Sexual [...] on filedocumented in this encounter Care Teams Segment Block Layer Relationship Specialty Start Date End Date Deven Brown MD [address] [place] [address] PCP - General Internal Medicine 03/19/19 03/23/19 Joby Lewis DO [address] [place] [address] PCP - General Internal Medicine 03/24/19 10/01/23 Karma Nayak NP [address] [place], [place] [address] PCP - General Nurse Practitioner 10/02/23 Sultan Corby Jenkins MD [address] [facility] [address] [address] Early Childhood Teacher Assistant Cardiology 05/29/19 documented as of this encounter
--- OUTSIDE RECORDS SUMMARY | 2025-05-05 07:25 | XMS_ITS | Encounter Summary ---
Author Organization [facility] Facility Care Team Providers Care Library Services Dean Name Role Phone Deven Brown MD Primary Care Provider [phone] Joby Lewis DO Primary Care Provider [phone] Sultan Corby Jenkins MD Unavailable Karma Nayak NP Primary Care Provider [phone] Encounter Details Date Type Department Care Team (Latest Contact Info) Description 07/20/2015 Orders Only MMG CLINCONV Provider, MD Esperanza [address] [place] [address] Social History Tobacco Use Types Packs/Day Years Used Date Smoking Tobacco: Never Assessed Comments Unknown Sex and Gender Information Value Date Recorded Sex Assigned at Not on file Legal Sex Female 7:34 AM PRIMARY SCHOOL TEACHER LIBRARIAN Gender Identity Not on file Sexual Orientation [...] on filedocumented in this encounter Care Teams Library Services Dean Relationship Specialty Start Date End Date Deven Brown MD [address] [place] [address] PCP - General Internal Medicine 03/19/19 03/23/19 Joby Lewis DO [address] [place] [address] PCP - General Internal Medicine 03/24/19 10/01/23 Karma Nayak NP [address] [facility] 1 [place] [address] PCP - General Nurse Practitioner 10/02/23 Sultan Corby Jenkins MD [address] [facility] [address] [address] Escrow Processor Cardiology 05/29/19 documented as of this encounter
--- OUTSIDE RECORDS SUMMARY | 2025-05-05 07:25 | XMS_ITS | Encounter Summary ---
Author Organization [facility] Address [address] [place] [address] Care Team Providers Care Supervisor Evaporator Name Role Phone Sher Nelson MD Primary Care Provider [phone] Encounter Details Date Type Department Care Team (Late st Contact Info) Description 04/22/2024 Lab Requisition [facility] - DermPath Lab [address] [facility], [place] [phone] Letitia Mehta MD [address] [facility] [address] [place] [address] Social History Tobacco Use Types Packs/Day Years Used Date Smoking Tobacco: Never Assessed Comments Unknown Sex and Gender Information Value Date Recorded Sex Assigned at Not on file Legal Sex Female 2:54 PM CDT Gender Identity Not on file Sexual Orientation Not on file documented as of this encounter Plan of Treatment Not on file documented as of this encounter Procedures Procedure Name Priority Date/Time Associated Diagnosis Comments DERMATOPATHOLOGY Routine 04/22/2024 10:5 2 AM CDT documented in this encounter Results * DERMATOPATHOLOGY (04/22/2024 10:52 AM CDT) Case Report Dermatopathology Report Case: [id number] Authorizing Provider: Letitia Mehta MD Collected: 04/22/2024 10:52 AM Ordering Location: [facility] - Received: 04/24/2024 08:33 AM DermPath Lab Pathologist: Abril Lujan MD Specimen: Skin, left nasal crease 4:42 PM CDT DERMATOPATHOLOGY LABORATORY Final Diagnosis Specimen A. SKIN, left nasal crease: BASAL CELL CARCINOMA, NODULAR TYPE (C44.311) 4 4:42 PM CDT DERMATOPATHOLOGY LABORATORY at 1642 CDT Clinical History BCC vs SCC vs F. [...] characteristic determined by the Dermatopathology Laboratory at [facility], directed by Dr. Selena Gilman. These tests need not be, and therefore are not, approved by the [place] Food and Drug Administration. The tests are used for clinical purposes. Billing Codes Specimen Charges Stain Charges 24075 1 4 4:42 PM CDT DERMATOPATHOLOGY LABORATORY Embedded Images 4:42 PM CDT DERMATOPATHOLOGY LABORATORY Pathology/Cytolo gy TISSUE SPECIMEN FROM SKIN / Unknown 04/22/2024 10:52 AM CDT 04/24/2024 8:33 AM CDT us Letitia Mehta MD LAB - PATHOLOGY/CYTOLOGY OR DERABLES Final Result DERMATOPATHOLOGY LABORATORY [facility] - Department of Dermatology [address], [address] [phone] documented in this encounter Visit Diagnoses Not on filedocumented in this encounter Care Teams Supervisor Evaporator Relationship Specialty [place] [id number] [address] PCP - General 10/31/22 documented as of this encounter
--- OUTSIDE RECORDS SUMMARY | 2025-05-05 07:25 | XMS_ITS | Encounter Summary ---
Author Organization [facility] Facility Care Team Providers Care Event Marketing Specialist Name Role Phone Deven Brown MD Primary Care Provider [phone] Joby Lewis DO Primary Care Provider [phone] Sultan Corby Jenkins MD Unavailable [phone] Karma Nayak NP Primary Care Provider [phone] Encounter Details Date Type Department Care Team (Latest Contact Info) Description 07/19/2015 Orders Only MMG CLINCONV Provider, MD Esperanza [address] [place] [address] Social History Tobacco Use Types Packs/Day Years Used Date Smoking Tobacco: Never Assessed Comments Unknown Sex and Gender Information Value Date Recorded Sex Assigned at Not on file Legal Sex Female 7:34 AM GEAR SETTER Gender Identity Not on file Sexual Orientation [...] on filedocumented in this encounter Care Teams Event Marketing Specialist Relationship Specialty Start Date End Date Deven Brown MD [address] [place] [address] PCP - General Internal Medicine 03/19/19 03/23/19 Joby Lewis DO [address] [place] [address] PCP - General Internal Medicine 03/24/19 10/01/23 Karma Nayak NP [address] [facility] 1 [place] [address] PCP - General Nurse Practitioner 10/02/23 Sultan Corby Jenkins MD [address] [facility] [address] [address] Teaching Aide Cardiology 05/29/19 documented as of this encounter
--- OUTSIDE RECORDS SUMMARY | 2025-05-05 07:25 | XMS_ITS | Encounter Summary ---
Author Organization [facility] Facility Care Team Providers Care Cloth Grader Supervisor Name Role Phone Deven Brown MD Primary Care Provider Joby Lewis DO Primary Care Provider [phone] Sultan Corby Jenkins MD Unavailable [phone] Karma Nayak NP Primary Care Provider [phone] Encounter Details Date Type Department Care Team (Latest Contact Info) Description 11/10/2015 Orders Only MMG CLINCONV Provider, MD Esperanza [address] [place] [address] Social History Tobacco Use Types Packs/Day Years Used Date Smoking Tobacco: Never Assessed Comments Unknown Sex and Gender Information Value Date Recorded Sex Assigned at Not on file Legal Sex Female 7:34 AM CUSTOMER RESOLUTION SPECIALIST Gender Identity Not on file Sexual Orientation [...] on filedocumented in this encounter Care Teams Cloth Grader Supervisor Relationship Specialty Start Date End Date Deven Brown MD [address] [place] [address] PCP - General Internal Medicine 03/19/19 03/23/19 Joby Lewis DO [address] [place] [address] PCP - General Internal Medicine 03/24/19 10/01/23 Karma Nayak NP [address] [facility] 1 [place] [address] PCP - General Nurse Practitioner 10/02/23 Sultan Corby Jenkins MD [address] [facility] [address] [address] Surveillance Officer Cardiology 05/29/19 documented as of this encounter
--- OUTSIDE RECORDS SUMMARY | 2025-05-05 07:25 | XMS_ITS | Encounter Summary ---
Author Organization [facility] Facility Care Team Providers Care Annealer Name Role Phone Deven Brown MD Primary Care Provider [phone] Joby Lewis DO Primary Care Provider [phone] Sultan Corby Jenkins MD Unavailable [phone] Karma Nayak NP Primary Care Provider [phone] Encounter Details Date Type Department Care Team (Latest Contact Info) Description 02/09/2016 Orders Only MMG CLINCONV Provider, MD Esperanza [address] [place] [address] Social History Tobacco Use Types Packs/Day Years Used Date Smoking Tobacco: Never Assessed Comments Unknown Sex and Gender Information Value Date Recorded Sex Assigned at Not on file Legal Sex Female 7:34 AM EDGER LINER Gender Identity Not on file Sexual Orientation [...] on filedocumented in this encounter Care Teams Annealer Relationship Specialty Start Date End Date Deven Brown MD [address] [place] [address] PCP - General Internal Medicine 03/19/19 03/23/19 Joby Lewis DO [address] [place] [address] PCP - General Internal Medicine 03/24/19 10/01/23 Karma Nayak NP [address] [place], [place] [address] PCP - General Nurse Practitioner 10/02/23 Sultan Corby Jenkins MD [address] [facility] [address] [address] Accounting Consultant Cardiology 05/29/19 documented as of this encounter
--- OUTSIDE RECORDS SUMMARY | 2025-05-05 07:25 | XMS_ITS | Encounter Summary ---
Author Organization [facility] Facility Care Team Providers Care Marine Machinist Name Role Phone Deven Brown MD Primary Care Provider [phone] Joby Lewis DO Primary Care Provider [phone] Sultan Corby Jenkins MD Unavailable [phone] Karma Nayak NP Primary Care Provider [phone] Encounter Details Date Type Department Care Team (Latest Contact Info) Description 06/07/2016 Orders Only MMG CLINCONV Provider, MD Esperanza [address] [place] [address] Social History Tobacco Use Types Packs/Day Years Used Date Smoking Tobacco: Never Assessed Comments Unknown Sex and Gender Information Value Date Recorded Sex Assigned at Not on file Legal Sex Female 7: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 DRYING MACHINE OPERATOR Gender Identity Not on file [...] on filedocumented in this encounter Care Teams Marine Machinist Relationship Specialty Start Date End Date Deven Brown MD [address] [place] [address] PCP - General Internal Medicine 03/19/19 03/23/19 Joby Lewis DO [address] [place] [address] PCP - General Internal Medicine 03/24/19 10/01/23 Karma Nayak NP [address] [place], [place] [address] PCP - General Nurse Practitioner 10/02/23 Sultan Corby Jenkins MD [address] [facility] [address] [address] Polisher Apprentice Cardiology 05/29/19 documented as of this encounter
--- OUTSIDE RECORDS SUMMARY | 2025-05-05 07:25 | XMS_ITS | Encounter Summary ---
Author Organization [facility] Facility Care Team Providers Care Outsole Skiver Name Role Phone Deven Brown MD Primary Care Provider [phone] Joby Lewis DO Primary Care Provider [phone] Sultan Corby Jenkins MD Unavailable [phone] Karma Nayak NP Primary Care Provider Encounter Details Date Type Department Care Team (Latest Contact Info) Description 12/18/2016 Orders Only [facility] CLINCONV Provider, MD Esperanza [address] [place] [address] Social History Tobacco Use Types Packs/Day Years Used Date Smoking Tobacco: Never Assessed Comments Unknown Sex and Gender Information Value Date Recorded Sex Assigned at Not on file Legal Sex Female 7:34 AM ACTIVITY COORDINATOR Gender Identity Not on file Sexual Orientation Not on file documented as of this encounter Plan of Treatment Not on file documented as of this encounter Procedures Procedure Name Priority Date/Time Associated Diagnosis Comments CARDIOLOGY REPORT 01/15/2017 12: 00 AM CDT CARDIOLOGY REPORT 01/15/2017 12: 00 AM CDT CARDIOLOGY REPORT 12/19/2016 12: 00 AM ACTIVITY COORDINATOR CARDIOLOGY REPORT 12/18/2016 12: 00 AM ACTIVITY COORDINATOR CARDIOLOGY REPORT 12/18/2016 12: 00 AM ACTIVITY COORDINATOR documented in this encounter Results * CARDIOLOGY REPORT (01/15/2017 12:00 AM CDT) Anatomical Region Laterality Modality Other Narrative 01/15/2017 12:00 AM CDT Ordered by an unspecified provider. [facility] Provider CV CARDIAC SERVICES PROCE DURES Final Result * CARDIOLOGY REPORT (01/15/2017 12:00 AM CDT) Anatomical Region Laterality Modality Other Narrative 01/15/2017 12:00 AM CDT Ordered by an unspecified provider. [facility] Provider CV CARDIAC SERVICES PROCE DURES Final Result * CARDIOLOGY REPORT (12/19/2016 12:00 AM ACTIVITY COORDINATOR) Anatomical Region Laterality Modality Other Narrative 12/19/2016 12:00 AM ACTIVITY COORDINATOR Ordered by an unspecified provider. [facility] Provider CV CARDIAC SERVICES PROCE DURES Final Result * CARDIOLOGY REPORT (12/18/2016 12:00 AM ACTIVITY COORDINATOR) Anatomical Region Laterality Modality Other Narrative 12/18/2016 12:00 AM ACTIVITY COORDINATOR Ordered by an unspecified provider. [facility] Provider CV CARDIAC SERVICES PROCE DURES Final Result * CARDIOLOGY REPORT (12/18/2016 12:00 AM ACTIVITY COORDINATOR) Anatomical Region Laterality Modality Other Narrative 12/18/2016 12:00 AM ACTIVITY COORDINATOR Ordered by an unspecified provider. [facility] Provider CV CARDIAC SERVICES PROCE DURES Final Result documented in this encounter Visit Diagnoses Not on filedocumented in this encounter Care Teams Outsole Skiver Relationship Specialty Start Date End Date Deven Brown MD [address] [place] [address] PCP - General Internal Medicine 03/19/19 03/23/19 Joby Lewis DO [address] [place] [address] PCP - General Internal Medicine 03/24/19 10/01/23 Karma Nayak NP [address] [place] [address] PCP - General Nurse Practitioner 10/02/23 Sultan Corby Jenkins MD [address] [address] Lens Grinding Machine Operator Cardiology 05/29/19 documented as of this encounter
--- OUTSIDE RECORDS SUMMARY | 2025-05-05 07:25 | XMS_ITS | Encounter Summary ---
Author Organization [facility] Facility Care Team Providers Care Documentum Consultant Name Role Phone Deven Brown MD Primary Care Provider [phone] Joby Lewis DO Primary Care Provider Sultan Corby Jenkins MD Unavailable [phone] Karma Nayak NP Primary Care Provider [phone] Encounter Details Date Type Department Care Team (Latest Contact Info) Description 07/21/2015 Orders Only [facility] CLINCONV Provider, MD Esperanza [address] [place] [address] Social History Tobacco Use Types Packs/Day Years Used Date Smoking Tobacco: Never Assessed Comments Unknown Sex and Gender Information Value Date Recorded Sex Assigned at Not on file Legal Sex Female 7:34 AM MARRIAGE COUNSELOR Gender Identity Not on file Sexual Orientation [...] on filedocumented in this encounter Care Teams Documentum Consultant Relationship Specialty Start Date End Date Deven Brown MD [address] [place] [address] PCP - General Internal Medicine 03/19/19 03/23/19 Joby Lewis DO [address] [place] [address] PCP - General Internal Medicine 03/24/19 10/01/23 Karma Nayak NP [address] [place], [place] [id number] PCP - General Nurse Practitioner 10/02/23 Sultan Corby Jenkins MD [address] [facility] [facility] [address] [address] Mothers Helper Cardiology 05/29/19 documented as of this encounter
--- OUTSIDE RECORDS SUMMARY | 2025-05-05 07:25 | XMS_ITS | Encounter Summary ---
Author Organization [facility] Facility Care Team Providers Care Cashier Supervisor Name Role Phone Deven Brown MD Primary Care Provider [phone] Joby Lewis DO Primary Care Provider [phone] Sultan Corby Jenkins MD Unavailable [phone] Karma Nayak NP Primary Care Provider [phone] Encounter Details Date Type Department Care Team (Latest Contact Info) Description 07/01/2018 Orders Only [facility]G CLINCONV Provider, MD Esperanza [address] [place] [address] Social History Tobacco Use Types Packs/Day Years Used Date Smoking Tobacco: Never Assessed Comments Unknown Sex and Gender Information Value Date Recorded Sex Assigned at Not on file Legal Sex Female 7:34 AM TAPE CUTTER Gender Identity Not on file Sexual Orientation [...] provider. Historical Provider CV CARDIAC SERVICES PROCE MARTHA Final Result * CARDIOLOGY REPORT (07/01/2018 12:00 AM CDT) Anatomical Region Laterality Modality Other Narrative 07/01/2018 12:00 AM CDT Ordered by an unspecified provider. Historical Provider CV CARDIAC SERVICES PROCE MARTHA Final Result documented in this encounter Visit Diagnoses Not on filedocumented in this encounter Care Teams Cashier Supervisor Relationship Specialty Start Date End Date Deven Brown MD [address] [place] [address] PCP - General Internal Medicine 03/19/19 03/23/19 Joby Lewis DO [address] [place] [address] PCP - General Internal Medicine 03/24/19 10/01/23 Karma Nayak NP [address] [place] [address] PCP - General Nurse Practitioner 10/02/23 Sultan Corby Jenkins MD [address] [facility] [address] [address] [place] [address] Sybase Developer Cardiology 05/29/19 documented as of this encounter
--- OUTSIDE RECORDS SUMMARY | 2025-05-05 07:25 | XMS_ITS | Encounter Summary ---
Author Organization [facility] Facility Care Team Providers Care Dental Equipment Repairer Name Role Phone Deven Brown MD Primary Care Provider [phone] Joby Lewis DO Primary Care Provider [phone] Sultan Corby Jenkins MD Unavailable [phone] Karma Nayak NP Primary Care Provider [phone] Encounter Details Date Type Department Care Team (Latest Contact Info) Description 12/24/2017 Orders Only [facility]G CLINCONV Provider, MD Esperanza [address] [place] [address] Social History Tobacco Use Types Packs/Day Years Used Date Smoking Tobacco: Never Assessed Comments Unknown Sex and Gender Information Value Date Recorded Sex Assigned at Not on file Legal Sex Female 7:34 AM HELICOPTER UTILITY AIRCREWMAN Gender Identity Not on file Sexual Orientation Not on file documented as of this encounter Plan of Treatment Not on file documented as of this encounter Procedures Procedure Name Priority Date/Time Associated Diagnosis Comments CARDIOLOGY REPORT 12/24/2017 12: 00 AM HELICOPTER UTILITY AIRCREWMAN CARDIOLOGY REPORT 12/24/2017 12: 00 AM HELICOPTER UTILITY AIRCREWMAN CARDIOLOGY REPORT 12/24/2017 12: 00 AM HELICOPTER UTILITY AIRCREWMAN documented in this encounter Results * CARDIOLOGY REPORT (12/24/2017 12:00 AM HELICOPTER UTILITY AIRCREWMAN) Anatomical Region Laterality Modality Other Narrative 12/24/2017 12:00 AM HELICOPTER UTILITY AIRCREWMAN Ordered by an unspecified provider. us Historical Provider CV CARDIAC SERVICES PROCE DURES Final Result * CARDIOLOGY REPORT (12/24/2017 12:00 AM HELICOPTER UTILITY AIRCREWMAN) Anatomical Region Laterality Modality Other Narrative 12/24/2017 12:00 AM HELICOPTER UTILITY AIRCREWMAN Ordered by an unspecified provider. Historical Provider CV CARDIAC SERVICES PROCE DURES Final Result * CARDIOLOGY REPORT (12/24/2017 12:00 AM HELICOPTER UTILITY AIRCREWMAN) Anatomical Region Laterality Modality Other Narrative 12/24/2017 12:00 AM HELICOPTER UTILITY AIRCREWMAN Ordered by an unspecified provider. Historical Provider CV CARDIAC SERVICES PROCE DURES Final Result documented in this encounter Visit Diagnoses Not on filedocumented in this encounter Care Teams Dental Equipment Repairer Relationship Specialty Start Date End Date Deven Brown MD [address] [place] [address] PCP - General Internal Medicine 03/19/19 03/23/19 Joby Lewis DO [address] [place] [address] PCP - General Internal Medicine 03/24/19 10/01/23 Karma Nayak TRANSACTION ADVISORY SERVICES MANAGER [address] [place] [address] PCP - General Nurse Practitioner 10/02/23 Sultan Corby Jenkins MD [address] [facility] [facility] [address] [place] [address] Campus Receptionist Cardiology 05/29/19 documented as of this encounter
--- OUTSIDE RECORDS SUMMARY | 2025-05-05 07:26 | XMS_ITS | Clinical Summary ---
Author Organization [facility] Address [address] [place] [address] Care Team Providers Care Parts Washer Name Role Phone Sher Nelson MD Primary Care Provider [phone] Source Comments [facility],non-owned Affiliates and Associated Physician Practices is amultiple site organization consisting of ambulatory clinics and hospital sitesin [place], [place], [place] and [place]. This disclosure is being madepursuant to the Care Everywhere program and may not contain all information available regarding this patient. Last updated 18.[facility] Social History Tobacco Use Types Packs/Day Years [...] VACCINE ( - 2023-2 5 season) 2024 DEPRESSION SCREENING 10/21/2024 INFLUENZA VACCINE (#1) 2025 HEPATITIS B VACCINE Aged Out No longe r eligible based on patient's age to complete this topic HIB VACCINE Aged Out No longer eligi ble based on patient's age to complete this topic HPV VACCINE Aged Out No longer eligi ble based on patient's age to complete this topic MENINGOCOCCAL (Group B) VACC INE SHARED DECISION-MAKING Aged Out No longer eligibl e based on patient's age to complete this topic MENINGOCOCCAL GROUPS A/C/Y/W VACCINE Aged Out No longer eligible b ased on patient's age to complete this topic Insurance MEDICARE MEDICARE [facility] Care Teams Parts Washer Relationship Specialty [place] [id number] [address] PCP - General 10/31/22
--- OUTSIDE RECORDS SUMMARY | 2025-05-05 07:26 | XMS_ITS | Clinical Summary ---
Author Organization [facility] Address [address] [place] [address] Care Team Providers Care Sign Carpenter Name Role Phone Sultan Corby Jenkins MD Unavailable Karma Nayak NP Primary Care Provider [phone] Allergies No known active allergies Medications levothyroxine (SYNTHROID, LEVOTHROID) 100 mcg tablet Take 1 tablet (100 mcg total) by mouth daily 0 9 Active vit D3-vit D-lstunxdvb-ybm s [phone] xghi-asd-wg-mg tablet Take by mouth daily Active triamcinolone (KENALOG) 0.1 % cream APPLY TOPICALLY TO THE AFFECTED AREA ON ARMS TWICE DAILY NEEDED. 2 Active atenoloL (TENORMIN) 50 mg tablet TAKE 1 TABLET(50 MG) BY MOUTH DAILY 90 tablet 1 5 Active Active Problems Problem Noted Date Diagnosed Date superintendent terminal current use of anticoagulant 4 Sick sinus syndrome due to SA node dysfunction 0 02/11/2024 Morbid obesity 04/12/2020 Assessment & Plan (03/30/2021 7:03 PM CDT): Has been encouraged to lose weight. Assessment & Plan (11/29/2020 2:20 PM NATURAL RESOURCE MANAGER): Encouraged dieting weight loss Assessment & Plan (09/30/2020 2:36 PM NATURAL RESOURCE MANAGER): Lose Weight. Assessment & Plan (04/12/2020 2:48 [...] life. Assessment & Plan (11/29/2020 1:54 PM NATURAL RESOURCE MANAGER): Check today shows normal function. Underlying rhythm [...] follows. Assessment & Plan (10/06/2019 2:47 PM NATURAL RESOURCE MANAGER): Check today shows normal function. Underlying rhythm [...] for years. 32% AFib Paroxysmal atrial fibrillation 03/24/2019 Assessment & Plan (03/14/2021 2:30 PM [...] Assessment & Plan (04/12/2020 2:48 PM CDT): [place] unchanged at 32%. And monthly trend line [...] 458. Assessment & Plan (10/06/2019 2:46 PM NATURAL RESOURCE MANAGER): [place] unchanged around 30%. Continue anticoagulation. Rates controlled [...] much change from check 6 months ago. [place] slightly higher. Discussed potential for ablation. Patient not interested at this time. Continue sotalol continue Xarelto. Anticoagulation management encounter 03/24/2019 Assessment & Plan (03/31/2021 1:03 PM CDT): Xarelto to prevent systemic embolization from the atrial fibrillation. Assessment & Plan (03/14/2021 2:31 PM CDT): High chads Vasc. Continue Xarelto. Assessment & Plan (09/30/2020 2:35 PM NATURAL RESOURCE MANAGER): Xarelto to prevent systemic embolization from the atrial fibrillation. Assessment & Plan (04/12/2020 2:49 PM CDT): Continue Xarelto. Upcoming labs to confirm GFR remains greater than 50 Assessment & Plan (03/25/2020 12:58 PM CDT): Xarelto. Assessment & Plan (10/06/2019 2:46 PM NATURAL RESOURCE MANAGER): Continue Xarelto 20 mg daily Assessment & Plan (03/24/2019 3:33 PM CDT): Xarelto 20 mg q.h.s. Sinus node dysfunction 06/12/2016 Intermittent atrial fibrillation 06/01/2016 Assessment & Plan (03/31/2021 1:01 PM CDT): Underwent cryoablation of the intermittent atrial fibrillation on 01/31/2021. No longer on the sotalol. Remains on the Xarelto to prevent systemic embolization. Assessment & Plan (11/29/2020 2:20 PM NATURAL RESOURCE MANAGER): [place] up to 48% from 33% on last [...] proceed. Assessment & Plan (09/30/2020 2:35 PM NATURAL RESOURCE MANAGER): Sotalol to prevent the recurrence of atrial [...] Minimal. Assessment & Plan (09/29/2020 9:01 PM NATURAL RESOURCE MANAGER): Due to premature supraventricular beats and due [...] 06/01/2016 Assessment & Plan (09/29/2020 9:02 PM NATURAL RESOURCE MANAGER): Long history of symptomatic premature supraventricular beats. [...] recurrence. Assessment & Plan (09/29/2020 9:03 PM NATURAL RESOURCE MANAGER): History of syncope with Lopressor. No recurrence. Assessment & Plan (03/24/2020 8:32 PM CDT): History of syncope with Lopressor. No recurrence. Assessment & Plan (06/15/2019 9:19 PM CDT): History of syncope with Lopressor. No recurrence lately. Hyperlipidemia 06/01/2016 Assessment & Plan (03/30/2021 7:02 PM CDT): Statins are poorly tolerated. Assessment & Plan (09/29/2020 9:00 PM NATURAL RESOURCE MANAGER): Statins are poorly tolerated. Assessment & Plan (03/24/2020 8:32 PM CDT): Statins are poorly tolerated. Assessment & Plan (06/15/2019 9:20 PM CDT): Statins are poorly tolerated. History of permanent cardiac pacemaker placement 06/01/2016 Paroxysmal supraventricular tachycardia 06/01/20 16 Assessment & Plan (09/29/2020 9:02 PM NATURAL RESOURCE MANAGER): Sotalol. Cardizem. Assessment & Plan (03/24/2020 8:33 PM CDT): Cardizem 60 mg p.o. b.i.d.. Assessment & Plan (06/15/2019 9:20 PM CDT): Continue the Cardizem 60 mg p.o. B.i.d. History of syncope 06/01/2016 Status post ablation of atrial fibrillation 05/21 Encounters Date Type Department Care Team Description 04/07/2025 3:15 PM CDT Office Visit [facility] Cardiology [address] [place] [address] Sultan Corby Jenkins MD Intermittent atrial fibrillation (HCC) (Primary Dx) 03/03/2025 7:45 AM CDT Ancillary Procedure [facility] Cardiology [address] [place] [address] Sinus node dysfunction (HCC); Paroxysmal atrial fibrillation (HCC); Pacemaker from Last 3 Months Surgical History Surgery Date Site/Laterality Comments INSERT / REPLACE / REMOVE PACEMAKER BREAST SURGERY IMPLANTS ABLATION CATARACT EXTRACTION Medical History Medical History Date Comments Palpitations Syncope SVT (supraventricular tachycardia) Hyperlipidemia Thyroid disease ??? Family History Medical History Relation Name Comments Cancer Father Earjose Schofield Atrial fibrillation Mother Kelle calderon Stroke Mother [...] on file Legal Sex Female 7:34 AM NATURAL RESOURCE MANAGER Gender Identity Not on file Sexual Orientation Not on file Obstetrics History Last Filed Vital Signs Vital Sign Reading Time Taken Comments Blood Pressure 124/72 04/07/2025 3:41 PM CDT Pulse 69 04/07/2025 3:41 PM CDT Temperature 36.3 C (97.3 F) 03/16/2022 2:03 PM CDT Respiratory Rate 16 02/21/2024 8:48 AM CDT Oxygen Saturation 96% 04/07/2025 3:41 PM CDT Inhaled Oxygen Concentration - - Weight 85.3 kg (188 lb) 04/07/2025 3:41 PM CDT Height 157.5 cm (5' 2) 10/02/2023 1:20 PM NATURAL RESOURCE MANAGER Body Mass Index 34.39 10/02/2023 1:20 PM NATURAL RESOURCE MANAGER Plan of Treatment Health Maintenance Due Date Last Done Comments Depression Screening 1945 Hepatitis C Screening 1945 Osteoporosis Screening-Bone Density Scan 1945 DTaP/Tdap/Td Vaccine (1 - Tdap) 1957 Hepatitis B Screening 1964 Pneumococcal vaccine 65+ (1 of 1 - PCV) 1996 Zoster Vaccine (1 of 2) 1996 Well Visit 65+ 2011 Fall Risk Assessment 02/20/2025 02/21/2024 Influenza Vaccine (Season Ended) 2025 07/29/2019, 08/17/2018, 07/23/2016, Additional history exists Medical Devices Implanted Type Area Master Control Operator Device Identifier Shelf Expiration Date Model / Serial / Lot [employer] Accolade Latitude Nxt Pacesafe Easyview 4.45x5.02cm 2 Chamber Is1 [id number] - [id number] Implanted:Qty: 1 on 02/21/2024 by Joseph Gonzalez MD at [facility] [employer] L311 / / Procedures Procedure Name Priority Date/Time Associated Diagnosis Comments DEVICE CHECK - REMOTE Routine 03/03/2025 8:07 AM CDT Sinus node dysfunction (HCC) Paroxysmal atrial fibrillation (HCC) Pacemaker from Last 3 Months Results * DEVICE CHECK - REMOTE (03/03/2025 8:07 AM CDT) Anatomical Region Laterality Modality Other Narrative 04/07/2025 10:50 AM CDT Table formatting from the original result was not included. Patient ID: Thelma Lobo is a 79 y.o. female This patient has a(n) [employer] dual chamber pacemaker. They had a routine remote transmission on 03/03/2025. Device implant indications: SND Interrogation of the patient's device demonstrates the following: Presenting EGM: /VS @ 66 bpm Mode: DDD + RYTHMIQ 60/130 bpm Device Settings Right Atrium Right Ventricle Sensitivity 0.25 mV 2.5 mV Pacing outputs 3.0 V @ 0.4 ms 2.0 V @ 0.4 ms Testing Measurements Right Atrium Right Ventricle Sensitivity 5.6 mV 8.2 mV Impedance 579 ohms 405 ohms Pacing threshold Not measured Not measured Pacing % 42% 0% Battery Status: 8 years to OSVALDO. Episodes since last cleared: 3 AT/AF episode(s): brief a tach, longest duration 12 seconds. AT/AF [place] <1% No high ventricular rate episode(s). Comments: Programming appropriate for device measurements. Measured data stable. See attached report. Medications: Anticoagulant(s): n/a Antiarrhythmic(s): atenolol Plan: Remote device checks quarterly, as scheduled. In-office device check scheduled on 06/08/2025. Nicol Kaba RN Joseph Gonzalez MD CV CARDIAC SERVICES [facility] Final Result from Last 3 Months Insurance MEDICARE MEDICARE [employer] MEDICARE SUPPLEMENT Care Teams Sign Carpenter Relationship Specialty Start Date End Date Karma Nayak NP [address] [address] PCP - General Nurse Practitioner 10/02/23 Sultan Corby Jenkins MD [address] [place] [address] Manager Of Tires Sales Cardiology 05/29/19
--- OUTSIDE RECORDS SUMMARY | 2025-05-05 07:26 | XMS_ITS | Referral Summary ---
Author Organization [facility] Address [address] [place] [address] Care Team Providers Care Meat Products Demonstrator Name Role Phone Sultan Corby Jenkins MD Unavailable [phone] Karma Nayak NP Primary Care Provider [phone] Encounters Date Type Department Care Team Description 04/07/2025 3:15 PM CDT Office Visit [facility] Cardiology [address] [place] [address] [address] Sultan Corby Jenkins MD Intermittent atrial fibrillation (HCC) (Primary Dx) 03/03/2025 7:45 AM CDT Ancillary Procedure [facility] Cardiology [address] [place] [address] [address] Sinus node dysfunction (HCC); Paroxysmal atrial fibrillation (HCC); Pacemaker from Last 3 Months Allergies No known active allergies Medications levothyroxine (SYNTHROID, LEVOTHROID) 100 mcg tablet Take 1 tablet (100 mcg total) by mouth daily 0 9 Active vit D3-vit M-paeikagal-yxu s [id number] uuti-jci-ov-mg tablet Take by mouth daily Active triamcinolone [...] weight. Assessment & Plan (11/29/2020 2:20 PM INTEGRATION ARCHITECT): Encouraged dieting weight loss Assessment & Plan (09/30/2020 2:36 PM INTEGRATION ARCHITECT): Lose Weight. Assessment & Plan (04/12/2020 2:48 [...] life. Assessment & Plan (11/29/2020 1:54 PM INTEGRATION ARCHITECT): Check today shows normal function. Underlying rhythm [...] follows. Assessment & Plan (10/06/2019 2:47 PM INTEGRATION ARCHITECT): Check today shows normal function. Underlying rhythm [...] Assessment & Plan (04/12/2020 2:48 PM CDT): [place] unchanged at 32%. And monthly trend line [...] 458. Assessment & Plan (10/06/2019 2:46 PM INTEGRATION ARCHITECT): [place] unchanged around 30%. Continue anticoagulation. Rates controlled [...] much change from check 6 months ago. [place] slightly higher. Discussed potential for ablation. Patient not interested at this time. Continue sotalol continue Xarelto. Anticoagulation management encounter 03/24/2019 Assessment & Plan (03/31/2021 1:03 PM CDT): Xarelto to prevent systemic embolization from the atrial fibrillation. Assessment & Plan (03/14/2021 2:31 PM CDT): High chads Vasc. Continue Xarelto. Assessment & Plan (09/30/2020 2:35 PM INTEGRATION ARCHITECT): Xarelto to prevent systemic embolization from the atrial fibrillation. Assessment & Plan (04/12/2020 2:49 PM CDT): Continue Xarelto. Upcoming labs to confirm GFR remains greater than 50 Assessment & Plan (03/25/2020 12:58 PM CDT): Xarelto. Assessment & Plan (10/06/2019 2:46 PM INTEGRATION ARCHITECT): Continue Xarelto 20 mg daily Assessment & Plan (03/24/2019 3:33 PM CDT): Xarelto 20 mg q.h.s. Sinus node dysfunction 06/12/2016 Intermittent atrial fibrillation 06/01/2016 Assessment & Plan (03/31/2021 1:01 PM CDT): Underwent cryoablation of the intermittent atrial fibrillation on 01/31/2021. No longer on the sotalol. Remains on the Xarelto to prevent systemic embolization. Assessment & Plan (11/29/2020 2:20 PM INTEGRATION ARCHITECT): [place] up to 48% from 33% on last [...] proceed. Assessment & Plan (09/30/2020 2:35 PM INTEGRATION ARCHITECT): Sotalol to prevent the recurrence of atrial [...] Minimal. Assessment & Plan (09/29/2020 9:01 PM INTEGRATION ARCHITECT): Due to premature supraventricular beats and due [...] 06/01/2016 Assessment & Plan (09/29/2020 9:02 PM INTEGRATION ARCHITECT): Long history of symptomatic premature supraventricular beats. [...] recurrence. Assessment & Plan (09/29/2020 9:03 PM INTEGRATION ARCHITECT): History of syncope with Lopressor. No recurrence. Assessment & Plan (03/24/2020 8:32 PM CDT): History of syncope with Lopressor. No recurrence. Assessment & Plan (06/15/2019 9:19 PM CDT): History of syncope with Lopressor. No recurrence lately. Hyperlipidemia 06/01/2016 Assessment & Plan (03/30/2021 7:02 PM CDT): Statins are poorly tolerated. Assessment & Plan (09/29/2020 9:00 PM INTEGRATION ARCHITECT): Statins are poorly tolerated. Assessment & Plan (03/24/2020 8:32 PM CDT): Statins are poorly tolerated. Assessment & Plan (06/15/2019 9:20 PM CDT): Statins are poorly tolerated. History of permanent cardiac pacemaker placement 06/01/2016 Paroxysmal supraventricular tachycardia 06/01/20 16 Assessment & Plan (09/29/2020 9:02 PM INTEGRATION ARCHITECT): Sotalol. Cardizem. Assessment & Plan (03/24/2020 8:33 [...] on file Legal Sex Female 7:34 AM INTEGRATION ARCHITECT Gender Identity Not on file Sexual Orientation [...] 157.5 cm (5' 2) 10/02/2023 1:20 PM INTEGRATION ARCHITECT Body Mass Index 34.39 10/02/2023 1:20 PM INTEGRATION ARCHITECT Plan of Treatment Not on file Medical Devices Implanted Type Area Nuclear Powerplant Mechanic Helper Device Identifier Shelf Expiration Date Model / Serial / Lot [employer] C.R.M. Accolade Latitude Nxt Pacesafe Easyview 4.45x5.02cm 2 Chamber Is1 L311 - [id number] Implanted:Qty: 1 on 02/21/2024 by Joseph Gonzalez MD at [facility] [employer] C.R.M. L311 / / Procedures Procedure Name [...] 79 y.o. female This patient has a(n) [employer] dual chamber pacemaker. They had a [...] a tach, longest duration 12 seconds. AT/AF [place] <1% No high ventricular rate episode(s). Comments: Programming appropriate for device measurements. Measured data stable. See attached report. Medications: Anticoagulant(s): n/a Antiarrhythmic(s): atenolol Plan: Remote device checks quarterly, as scheduled. In-office device check scheduled on 06/08/2025. Nicol Kaba RN Joseph Gonzalez MD CV CARDIAC SERVICES PROCE MARTHA Final Result from Last 3 Months Insurance MEDICARE MEDICARE [facility] MEDICARE SUPPLEMENT Care Teams Meat Products Demonstrator Relationship Specialty Start Date End Date Karma Nayak NP [address] [address] PCP - General Nurse Practitioner 10/02/23 Sultan Corby Jenkins MD [address] [facility] [address] [place] [address] Drive In Waiter/Waitress Cardiology 05/29/19
== END 2025-05-05 07:23 | disposition home or self-care (01) ==
LOC: ANHLAB 07:23
PROVIDERS: PCP Nurse Practitioner Family; Visit Provider Nurse Practitioner Family
DX: I49.5 Sick sinus syndrome (principal); I48.91 Unspecified atrial fibrillation; E78.5 Hyperlipidemia, unspecified; E03.9 Hypothyroidism, unspecified
CPT/HCPCS: 36415; 80053; 80061; 84443

== ENCOUNTER 2025-05-11 07:03 | Outpatient (CLI) | payer MEDICARE, SELFPAY ==
--- OUTSIDE RECORDS SUMMARY | 2025-05-11 07:05 | XMS_ITS | Encounter Summary ---
Author Organization [facility] Facility Care Team Providers Care Train Planner Name Role Phone Deven Brown MD Primary Care Provider [phone] Joby Lewis DO Primary Care Provider [phone] Sultan Corby Jenkins MD Unavailable [phone] Karma Nayak NP Primary Care Provider [phone] Encounter Details Date Type Department Care Team (Latest Contact Info) Description 07/01/2018 Orders Only [facility] CLINCONV Provider, MD [place] [address] [place] [address] Social History Tobacco Use Types Packs/Day Years Used Date Smoking Tobacco: Never Assessed Comments Unknown Sex and Gender Information Value Date Recorded Sex Assigned at Not on file Legal Sex Female 7:34 AM LEVEL VIAL SETTER Gender Identity Not on file Sexual [...] on filedocumented in this encounter Care Teams Train Planner Relationship Specialty Start Date End Date Deven Brown MD [address] [place] [address] PCP - General Internal Medicine 03/19/19 03/23/19 Joby Lewis DO [address] [place] [address] PCP - General Internal Medicine 03/24/19 10/01/23 Karma Nayak NP [address] [place] [address] PCP - General Nurse Practitioner 10/02/23 Sultan Corby Jenkins MD [address] [facility] [address] [place] [address] Supervisor Scouring Pads Cardiology 05/29/19 documented as of this encounter
--- OUTSIDE RECORDS SUMMARY | 2025-05-11 07:05 | XMS_ITS | Encounter Summary ---
Author Organization [facility] Facility Care Team Providers Care Unhairing Machine Operator Name Role Phone Deven Brown MD Primary Care Provider [phone] Joby Lewis DO Primary Care Provider [phone] Sultan Corby Jenkins MD Unavailable [phone] Karma Nayak NP Primary Care Provider Encounter Details Date Type Department Care Team (Latest Contact Info) Description 12/24/2017 Orders Only [facility] CLINCONV Provider, MD [place] [address] [place] [address] Social History Tobacco Use Types Packs/Day Years Used Date Smoking Tobacco: Never Assessed Comments Unknown Sex and Gender Information Value Date Recorded Sex Assigned at Not on file Legal Sex Female 7:34 AM SEARCH MANAGER Gender Identity Not on file Sexual Orientation Not on file documented as of this encounter Plan of Treatment Not on file documented as of this encounter Procedures Procedure Name Priority Date/Time Associated Diagnosis Comments CARDIOLOGY REPORT 12/24/2017 12: 00 AM SEARCH MANAGER CARDIOLOGY REPORT 12/24/2017 12: 00 AM SEARCH MANAGER CARDIOLOGY REPORT 12/24/2017 12: 00 AM SEARCH MANAGER documented in this encounter Results * CARDIOLOGY REPORT (12/24/2017 12:00 AM SEARCH MANAGER) Anatomical Region Laterality Modality Other Narrative 12/24/2017 12:00 AM SEARCH MANAGER Ordered by an unspecified provider. us Historical Provider CV CARDIAC SERVICES PROCE DURES Final Result * CARDIOLOGY REPORT (12/24/2017 12:00 AM SEARCH MANAGER) Anatomical Region Laterality Modality Other Narrative 12/24/2017 12:00 AM SEARCH MANAGER Ordered by an unspecified provider. Historical Provider CV CARDIAC SERVICES PROCE DURES Final Result * CARDIOLOGY REPORT (12/24/2017 12:00 AM SEARCH MANAGER) Anatomical Region Laterality Modality Other Narrative 12/24/2017 12:00 AM SEARCH MANAGER Ordered by an unspecified provider. Historical Provider CV CARDIAC SERVICES PROCE DURES Final Result documented in this encounter Visit Diagnoses Not on filedocumented in this encounter Care Teams Unhairing Machine Operator Relationship Specialty Start Date End Date Deven Brown MD [address] [place] [address] PCP - General Internal Medicine 03/19/19 03/23/19 Joby Lewis DO [address] [place] [address] PCP - General Internal Medicine 03/24/19 10/01/23 Karma Nayak CLAIMS REPRESENTATIVE [address] [place] [address] PCP - General Nurse Practitioner 10/02/23 Sultan Corby Jenkins MD [address] [facility] [address] [place] [address] Portal Architect Cardiology 05/29/19 documented as of this encounter
--- OUTSIDE RECORDS SUMMARY | 2025-05-11 07:05 | XMS_ITS | Encounter Summary ---
Author Organization [facility] Facility Care Team Providers Care Screen Printing Machine Loader Unloader Name Role Phone Deven Brown MD Primary Care Provider [phone] Joby Lewis DO Primary Care Provider [phone] Sultan Corby Jenkins MD Unavailable [phone] Karma Nayak NP Primary Care Provider [phone] Encounter Details Date Type Department Care Team (Latest Contact Info) Description 07/21/2015 Orders Only [facility] CLINCONV Provider, MD [place] [address] [place] [address] Social History Tobacco Use Types Packs/Day Years Used Date Smoking Tobacco: Never Assessed Comments Unknown Sex and Gender Information Value Date Recorded Sex Assigned at Not on file Legal Sex Female 7:34 AM FIELD CROP HARVEST CONTRACTOR Gender Identity Not on file Sexual Orientation [...] on filedocumented in this encounter Care Teams Screen Printing Machine Loader Unloader Relationship Specialty Start Date End Date Deven Brown MD [address] [place] [address] PCP - General Internal Medicine 03/19/19 03/23/19 Joby Lewis DO [address] [place] [address] PCP - General Internal Medicine 03/24/19 10/01/23 Karma Nayak NP [address] [place], [place] [address] PCP - General Nurse Practitioner 10/02/23 Sultan Corby Jenkins MD [address] [facility] [address] [address] Benefits Consulting Analyst Cardiology 05/29/19 documented as of this encounter
--- OUTSIDE RECORDS SUMMARY | 2025-05-11 07:05 | XMS_ITS | Encounter Summary ---
Author Organization [facility] Facility Care Team Providers Care Residential Energy Auditor Name Role Phone Deven Brown MD Primary Care Provider [phone] Joby Lewis DO Primary Care Provider [phone] Sultan Corby Jenkins MD Unavailable [phone] Karma Nayak NP Primary Care Provider [phone] Encounter Details Date Type Department Care Team (Latest Contact Info) Description 12/18/2016 Orders Only [facility] CLINCONV Provider, MD [place] [address] [place] [address] Social History Tobacco Use Types Packs/Day Years Used Date Smoking Tobacco: Never Assessed Comments Unknown Sex and Gender Information Value Date Recorded Sex Assigned at Not on file Legal Sex Female 7:34 AM ENTRY LEVEL MANAGER Gender Identity Not on file Sexual Orientation Not on file documented as of this encounter Plan of Treatment Not on file documented as of this encounter Procedures Procedure Name Priority Date/Time Associated Diagnosis Comments CARDIOLOGY REPORT 01/15/2017 12: 00 AM CDT CARDIOLOGY REPORT 01/15/2017 12: 00 AM CDT CARDIOLOGY REPORT 12/19/2016 12: 00 AM ENTRY LEVEL MANAGER CARDIOLOGY REPORT 12/18/2016 12: 00 AM ENTRY LEVEL MANAGER CARDIOLOGY REPORT 12/18/2016 12: 00 AM ENTRY LEVEL MANAGER documented in this encounter Results * CARDIOLOGY REPORT (01/15/2017 12:00 AM CDT) Anatomical Region Laterality Modality Other Narrative 01/15/2017 12:00 AM CDT Ordered by an unspecified provider. [facility] Provider CV CARDIAC SERVICES PROCE DURES Final Result * CARDIOLOGY REPORT (01/15/2017 12:00 AM CDT) Anatomical Region Laterality Modality Other Narrative 01/15/2017 12:00 AM CDT Ordered by an unspecified provider. [facility] Provider CV CARDIAC SERVICES PROCE DURES Final Result * CARDIOLOGY REPORT (12/19/2016 12:00 AM ENTRY LEVEL MANAGER) Anatomical Region Laterality Modality Other Narrative 12/19/2016 12:00 AM ENTRY LEVEL MANAGER Ordered by an unspecified provider. [facility] Provider CV CARDIAC SERVICES PROCE DURES Final Result * CARDIOLOGY REPORT (12/18/2016 12:00 AM ENTRY LEVEL MANAGER) Anatomical Region Laterality Modality Other Narrative 12/18/2016 12:00 AM ENTRY LEVEL MANAGER Ordered by an unspecified provider. [facility] Provider CV CARDIAC SERVICES PROCE DURES Final Result * CARDIOLOGY REPORT (12/18/2016 12:00 AM ENTRY LEVEL MANAGER) Anatomical Region Laterality Modality Other Narrative 12/18/2016 12:00 AM ENTRY LEVEL MANAGER Ordered by an unspecified provider. [facility] Provider CV CARDIAC SERVICES PROCE DURES Final Result documented in this encounter Visit Diagnoses Not on filedocumented in this encounter Care Teams Residential Energy Auditor Relationship Specialty Start Date End Date Deven Brown MD [address] [place] [address] PCP - General Internal Medicine 03/19/19 03/23/19 Joby Lewis DO [address] [place] [address] PCP - General Internal Medicine 03/24/19 10/01/23 Karma Nayak NP [address] [place] [address] PCP - General Nurse Practitioner 10/02/23 Sultan Corby Jenkins MD [address] [facility] [address] [address] Master Automotive Glass Technician Cardiology 05/29/19 documented as of this encounter
--- OUTSIDE RECORDS SUMMARY | 2025-05-11 07:05 | XMS_ITS | Encounter Summary ---
Author Organization [facility] Facility Care Team Providers Care Animal Nursery Worker Name Role Phone Deven Brown MD Primary Care Provider [phone] Joby Lewis DO Primary Care Provider [phone] Sultan Corby Jenkins MD Unavailable [phone] Karma Nayak NP Primary Care Provider Encounter Details Date Type Department Care Team (Latest Contact Info) Description 11/10/2015 Orders Only [facility] CLINCONV Provider, MD [place] [address] [place] [address] Social History Tobacco Use Types Packs/Day Years Used Date Smoking Tobacco: Never Assessed Comments Unknown Sex and Gender Information Value Date Recorded Sex Assigned at Not on file Legal Sex Female 7:34 AM INSTRUMENT SPECIALIST Gender Identity Not on file Sexual [...] on filedocumented in this encounter Care Teams Animal Nursery Worker Relationship Specialty Start Date End Date Deven Brown MD [address] [place] [address] PCP - General Internal Medicine 03/19/19 03/23/19 Joby Lewis DO [address] [place] [address] PCP - General Internal Medicine 03/24/19 10/01/23 Karma Nayak NP [address] [facility] 1 [place] [address] PCP - General Nurse Practitioner 10/02/23 Sultan Corby Jenkins MD [address] [facility] [address] [address] Shrink Pit Operator Cardiology 05/29/19 documented as of this encounter
--- OUTSIDE RECORDS SUMMARY | 2025-05-11 07:05 | XMS_ITS | Encounter Summary ---
Author Organization [facility] Facility Care Team Providers Care Financial Data Analyst Name Role Phone Deven Brown MD Primary Care Provider [phone] Joby Lewis DO Primary Care Provider [phone] Sultan Corby Jenkins MD Unavailable [phone] Karma Nayak NP Primary Care Provider [phone] Encounter Details Date Type Department Care Team (Latest Contact Info) Description 07/22/2015 Orders Only [facility] CLINCONV Provider, MD [place] [address] [place] [address] Social History Tobacco Use Types Packs/Day Years Used Date Smoking Tobacco: Never Assessed Comments Unknown Sex and Gender Information Value Date Recorded Sex Assigned at Not on file Legal Sex Female 7:34 AM BIOMEDICAL TECHNICIAN Gender Identity Not on file Sexual [...] on filedocumented in this encounter Care Teams Financial Data Analyst Relationship Specialty Start Date End Date Deven Brown MD [address] [place] [address] PCP - General Internal Medicine 03/19/19 03/23/19 Joby Lewis DO [address] [place] [address] PCP - General Internal Medicine 03/24/19 10/01/23 Karma Nayak NP [address] [facility] [place] [address] PCP - General Nurse Practitioner 10/02/23 Sultan Corby Jenkins MD [address] [facility] [address] [address] Pressing Machine Operator Cardiology 05/29/19 documented as of this encounter
--- OUTSIDE RECORDS SUMMARY | 2025-05-11 07:05 | XMS_ITS | Encounter Summary ---
Author Organization [facility] Facility Care Team Providers Care Artist'S Representative Name Role Phone Deven Brown MD Primary Care Provider [phone] Joby Lewis DO Primary Care Provider [phone] Sultan Corby Jenkins MD Unavailable [phone] Karma Nayak NP Primary Care Provider [phone] Encounter Details Date Type Department Care Team (Latest Contact Info) Description 06/18/2017 Orders Only [facility] CLINCONV Provider, MD [place] [address] [place] [address] Social History Tobacco Use Types Packs/Day Years Used Date Smoking Tobacco: Never Assessed Comments Unknown Sex and Gender Information Value Date Recorded Sex Assigned at Not on file Legal Sex Female 7:34 AM IRON WORKER Gender Identity Not on file Sexual [...] AM CDT Ordered by an unspecified provider. [facility] Provider CV CARDIAC SERVICES PROCE DURES Final Result * CARDIOLOGY REPORT (06/18/2017 12:00 AM CDT) Anatomical Region Laterality Modality Other Narrative 06/18/2017 12:00 AM CDT Ordered by an unspecified provider. [facility] Provider CV CARDIAC SERVICES PROCE DURES Final Result * CARDIOLOGY REPORT (06/18/2017 12:00 AM CDT) Anatomical Region Laterality Modality Other Narrative 06/18/2017 12:00 AM CDT Ordered by an unspecified provider. [facility] Provider CV CARDIAC SERVICES PROCE DURES Final Result * CARDIOLOGY REPORT (06/18/2017 12:00 AM CDT) Anatomical Region Laterality Modality Other Narrative 06/18/2017 12:00 AM CDT Ordered by an unspecified provider. [facility] Provider CV CARDIAC SERVICES PROCE DURES Final Result * CARDIOLOGY REPORT (06/18/2017 12:00 AM CDT) Anatomical Region Laterality Modality Other Narrative 06/18/2017 12:00 AM CDT Ordered by an unspecified provider. [facility] Provider CV CARDIAC SERVICES PROCE DURES Final Result documented in this encounter Visit Diagnoses Not on filedocumented in this encounter Care Teams Artist'S Representative Relationship Specialty Start Date End Date Deven Brown MD [address] [place] [address] PCP - General Internal Medicine 03/19/19 03/23/19 Joby Lewis DO [address] [place] [address] PCP - General Internal Medicine 03/24/19 10/01/23 Karma Nayak NP [address] [place] [address] PCP - General Nurse Practitioner 10/02/23 Sultan Corby Jenkins MD [address] [facility] [address] [address] Entomology Professor Cardiology 05/29/19 documented as of this encounter
--- OUTSIDE RECORDS SUMMARY | 2025-05-11 07:06 | XMS_ITS | Encounter Summary ---
Author Organization [facility] Facility Care Team Providers Care Team Leader Name Role Phone Deven Brown MD Primary Care Provider [phone] Joby Lewis DO Primary Care Provider [phone] Sultan Corby Jenkins MD Unavailable [phone] Karma Nayak NP Primary Care Provider [phone] Encounter Details Date Type Department Care Team (Latest Contact Info) Description 06/12/2016 Orders Only [facility] CLINCONV Provider, MD [place] [address] [place] [address] Social History Tobacco Use Types Packs/Day Years Used Date Smoking Tobacco: Never Assessed Comments Unknown Sex and Gender Information Value Date Recorded Sex Assigned at Not on file Legal Sex Female 7:34 AM AIRCRAFT WORKER Gender Identity Not on file Sexual [...] on filedocumented in this encounter Care Teams Team Leader Relationship Specialty Start Date End Date Deven Brown MD [address] [place] [address] PCP - General Internal Medicine 03/19/19 03/23/19 Joby Lewis DO [address] [place] [address] PCP - General Internal Medicine 03/24/19 10/01/23 Karma Nayak NP [address] [place] [address] PCP - General Nurse Practitioner 10/02/23 Sultan Corby Jenkins MD [address] [facility] [address] [address] Document Specialist Cardiology 05/29/19 documented as of this encounter
--- OUTSIDE RECORDS SUMMARY | 2025-05-11 07:06 | XMS_ITS | Referral Summary ---
Author Organization [facility] Address [address] [place] [address] Care Team Providers Care Oriental Rug Stretcher Name Role Phone Sultan Corby Jenkins MD Unavailable [phone] Karma Nayak NP Primary Care Provider [phone] Encounters Date Type Department Care Team Description 04/07/2025 3:15 PM CDT Office Visit [facility] Medical [facility] Cardiology [address] [place] [address] [address] Sultan Corby Jenkins MD Intermittent atrial fibrillation (HCC) (Primary Dx) 03/03/2025 7:45 AM CDT Ancillary Procedure [facility] Cardiology [address] [place] [address] [address] Sinus node dysfunction (HCC); Paroxysmal atrial fibrillation (HCC); Pacemaker from Last 3 Months Allergies No known active allergies Medications levothyroxine (SYNTHROID, LEVOTHROID) 100 mcg tablet Take 1 tablet (100 mcg total) by mouth daily 0 9 Active vit D3-vit W-koevevkgg-sdd s [id number] pjrv-gns-ju-mg tablet Take by mouth daily Active triamcinolone (KENALOG) 0.1 % cream APPLY TOPICALLY TO THE AFFECTED AREA ON ARMS TWICE DAILY NEEDED. 2 Active atenoloL (TENORMIN) 50 mg tablet TAKE 1 TABLET(50 MG) BY MOUTH DAILY 90 tablet 1 5 Active Active Problems Problem Noted Date Diagnosed Date custodial current use of anticoagulant 4 Sick sinus syndrome due to SA node dysfunction 0 02/11/2024 Morbid obesity 04/12/2020 Assessment & Plan (03/30/2021 7:03 PM CDT): Has been encouraged to lose weight. Assessment & Plan (11/29/2020 2:20 PM LIABILITY CLAIMS REPRESENTATIVE): Encouraged dieting weight loss Assessment & Plan (09/30/2020 2:36 PM LIABILITY CLAIMS REPRESENTATIVE): Lose Weight. Assessment & Plan (04/12/2020 2:48 [...] life. Assessment & Plan (11/29/2020 1:54 PM LIABILITY CLAIMS REPRESENTATIVE): Check today shows normal function. Underlying rhythm [...] follows. Assessment & Plan (10/06/2019 2:47 PM LIABILITY CLAIMS REPRESENTATIVE): Check today shows normal function. Underlying rhythm [...] Assessment & Plan (04/12/2020 2:48 PM CDT): [place] unchanged at 32%. And monthly trend line [...] 458. Assessment & Plan (10/06/2019 2:46 PM LIABILITY CLAIMS REPRESENTATIVE): [place] unchanged around 30%. Continue anticoagulation. Rates controlled [...] much change from check 6 months ago. [place] slightly higher. Discussed potential for ablation. Patient not interested at this time. Continue sotalol continue Xarelto. Anticoagulation management encounter 03/24/2019 Assessment & Plan (03/31/2021 1:03 PM CDT): Xarelto to prevent systemic embolization from the atrial fibrillation. Assessment & Plan (03/14/2021 2:31 PM CDT): High chads Vasc. Continue Xarelto. Assessment & Plan (09/30/2020 2:35 PM LIABILITY CLAIMS REPRESENTATIVE): Xarelto to prevent systemic embolization from the atrial fibrillation. Assessment & Plan (04/12/2020 2:49 PM CDT): Continue Xarelto. Upcoming labs to confirm GFR remains greater than 50 Assessment & Plan (03/25/2020 12:58 PM CDT): Xarelto. Assessment & Plan (10/06/2019 2:46 PM LIABILITY CLAIMS REPRESENTATIVE): Continue Xarelto 20 mg daily Assessment & Plan (03/24/2019 3:33 PM CDT): Xarelto 20 mg q.h.s. Sinus node dysfunction 06/12/2016 Intermittent atrial fibrillation 06/01/2016 Assessment & Plan (03/31/2021 1:01 PM CDT): Underwent cryoablation of the intermittent atrial fibrillation on 01/31/2021. No longer on the sotalol. Remains on the Xarelto to prevent systemic embolization. Assessment & Plan (11/29/2020 2:20 PM LIABILITY CLAIMS REPRESENTATIVE): [place] up to 48% from 33% on last [...] proceed. Assessment & Plan (09/30/2020 2:35 PM LIABILITY CLAIMS REPRESENTATIVE): Sotalol to prevent the recurrence of atrial [...] Minimal. Assessment & Plan (09/29/2020 9:01 PM LIABILITY CLAIMS REPRESENTATIVE): Due to premature supraventricular beats and due [...] 06/01/2016 Assessment & Plan (09/29/2020 9:02 PM LIABILITY CLAIMS REPRESENTATIVE): Long history of symptomatic premature supraventricular beats. [...] recurrence. Assessment & Plan (09/29/2020 9:03 PM LIABILITY CLAIMS REPRESENTATIVE): History of syncope with Lopressor. No recurrence. Assessment & Plan (03/24/2020 8:32 PM CDT): History of syncope with Lopressor. No recurrence. Assessment & Plan (06/15/2019 9:19 PM CDT): History of syncope with Lopressor. No recurrence lately. Hyperlipidemia 06/01/2016 Assessment & Plan (03/30/2021 7:02 PM CDT): Statins are poorly tolerated. Assessment & Plan (09/29/2020 9:00 PM LIABILITY CLAIMS REPRESENTATIVE): Statins are poorly tolerated. Assessment & Plan (03/24/2020 8:32 PM CDT): Statins are poorly tolerated. Assessment & Plan (06/15/2019 9:20 PM CDT): Statins are poorly tolerated. History of permanent cardiac pacemaker placement 06/01/2016 Paroxysmal supraventricular tachycardia 06/01/20 16 Assessment & Plan (09/29/2020 9:02 PM LIABILITY CLAIMS REPRESENTATIVE): Sotalol. Cardizem. Assessment & Plan (03/24/2020 8:33 [...] on file Legal Sex Female 7:34 AM LIABILITY CLAIMS REPRESENTATIVE Gender Identity Not on file Sexual [...] 157.5 cm (5' 2) 10/02/2023 1:20 PM LIABILITY CLAIMS REPRESENTATIVE Body Mass Index 34.39 10/02/2023 1:20 PM LIABILITY CLAIMS REPRESENTATIVE Plan of Treatment Not on file Medical Devices Implanted Type Area Stock And Station Agent Device Identifier Shelf Expiration Date Model / Serial / Lot [employer] C.[employer].M. Accolade Latitude Nxt Pacesafe Easyview 4.45x5.02cm 2 Chamber Is1 L311 - [id number] Implanted:Qty: 1 on 02/21/2024 by Joseph Gonzalez MD at [facility] [employer] C.R.M. L311 / / Procedures Procedure [...] 79 y.o. female This patient has a(n) [employer] dual chamber pacemaker. They had a [...] a tach, longest duration 12 seconds. AT/AF [place] <1% No high ventricular rate episode(s). Comments: Programming appropriate for device measurements. Measured data stable. See attached report. Medications: Anticoagulant(s): n/a Antiarrhythmic(s): atenolol Plan: Remote device checks quarterly, as scheduled. In-office device check scheduled on 06/08/2025. Nicol Kaba RN Joseph Gonzalez MD CV CARDIAC SERVICES PROCE [facility] Final Result from Last 3 Months Insurance MEDICARE MEDICARE [facility] MEDICARE SUPPLEMENT Care Teams Oriental Rug Stretcher Relationship Specialty Start Date End Date Karma Nayak NP [address] [address] PCP - General Nurse Practitioner 10/02/23 Sultan Corby Jenkins MD [address] [place] [address] Contract Engineer Cardiology 05/29/19
--- OUTSIDE RECORDS SUMMARY | 2025-05-11 07:06 | XMS_ITS | Encounter Summary ---
Author Organization [facility] Facility Care Team Providers Care Extension Service Specialist In Charge Name Role Phone Deven Brown MD Primary Care Provider Joby Lewis DO Primary Care Provider [phone] Sultan Corby Jenkins MD Unavailable [phone] Karma Nayak NP Primary Care Provider [phone] Encounter Details Date Type Department Care Team (Latest Contact Info) Description 07/19/2015 Orders Only [facility] CLINCONV Provider, MD [place] [address] [place] [address] Social History Tobacco Use Types Packs/Day Years Used Date Smoking Tobacco: Never Assessed Comments Unknown Sex and Gender Information Value Date Recorded Sex Assigned at Not on file Legal Sex Female 7:34 AM PROJECT ACCOUNT MANAGER Gender Identity Not on file [...] on filedocumented in this encounter Care Teams Extension Service Specialist In Charge Relationship Specialty Start Date End Date Deven Brown MD [address] [place] [address] PCP - General Internal Medicine 03/19/19 03/23/19 Joby Lewis DO [address] [place] [address] PCP - General Internal Medicine 03/24/19 10/01/23 Karma Nayak NP [address] [facility] 1 [place] [address] PCP - General Nurse Practitioner 10/02/23 Sultan Corby Jenkins MD [address] [address] [address] Dispatcher Radioactive Waste Disposal Cardiology 05/29/19 documented as of this encounter
--- OUTSIDE RECORDS SUMMARY | 2025-05-11 07:06 | XMS_ITS | Encounter Summary ---
Author Organization [facility] Facility Care Team Providers Care Naval Inspector Name Role Phone Deven Brown MD Primary Care Provider [phone] Joby Lewis DO Primary Care Provider [phone] Sultan Corby Jenkins MD Unavailable [phone] Karma Nayak NP Primary Care Provider [phone] Encounter Details Date Type Department Care Team (Latest Contact Info) Description 02/09/2016 Orders Only [facility] CLINCONV Provider, MD [place] [address] [place] [address] Social History Tobacco Use Types Packs/Day Years Used Date Smoking Tobacco: Never Assessed Comments Unknown Sex and Gender Information Value Date Recorded Sex Assigned at Not on file Legal Sex Female 7:34 AM WRAPPER HAND Gender Identity Not on file Sexual Orientation [...] on filedocumented in this encounter Care Teams Naval Inspector Relationship Specialty Start Date End Date Deven Brown MD [address] [place] [address] PCP - General Internal Medicine 03/19/19 03/23/19 Joby Lewis DO [address] [place] [address] PCP - General Internal Medicine 03/24/19 10/01/23 Karma Nayak NP [address] [place], [place] [id number] PCP - General Nurse Practitioner 10/02/23 Sultan Corby Jenkins MD [address] [facility] [address] [address] Securities Compliance Examiner Cardiology 05/29/19 documented as of this encounter
--- OUTSIDE RECORDS SUMMARY | 2025-05-11 07:06 | XMS_ITS | Clinical Summary ---
Author Organization [facility] Address [address] [place] [address] Care Team Providers Care Annealing Furnace Operator Name Role Phone Sultan Corby Jenkins MD Unavailable [phone] Karma Nayak NP Primary Care Provider [phone] Allergies No known active allergies Medications levothyroxine (SYNTHROID, LEVOTHROID) 100 mcg tablet Take 1 tablet (100 mcg total) by mouth daily 0 9 Active vit D3-vit E-ayugbimmt-par s [id number] pzht-vgm-if-mg tablet Take by mouth daily Active triamcinolone (KENALOG) 0.1 % cream APPLY TOPICALLY TO THE AFFECTED AREA ON ARMS TWICE DAILY NEEDED. 2 Active atenoloL (TENORMIN) 50 mg tablet TAKE 1 TABLET(50 MG) BY MOUTH DAILY 90 tablet 1 5 Active Active Problems Problem Noted Date Diagnosed Date terminal makeup operator current use of anticoagulant 4 Sick sinus syndrome due to SA node dysfunction 0 02/11/2024 Morbid obesity 04/12/2020 Assessment & Plan (03/30/2021 7:03 PM CDT): Has been encouraged to lose weight. Assessment & Plan (11/29/2020 2:20 PM TANK SETTER): Encouraged dieting weight loss Assessment & Plan (09/30/2020 2:36 PM TANK SETTER): Lose Weight. Assessment & Plan (04/12/2020 2:48 [...] life. Assessment & Plan (11/29/2020 1:54 PM TANK SETTER): Check today shows normal function. Underlying rhythm [...] follows. Assessment & Plan (10/06/2019 2:47 PM TANK SETTER): Check today shows normal function. Underlying rhythm [...] Assessment & Plan (04/12/2020 2:48 PM CDT): [place] unchanged at 32%. And monthly trend line [...] 458. Assessment & Plan (10/06/2019 2:46 PM TANK SETTER): [place] unchanged around 30%. Continue anticoagulation. Rates controlled [...] much change from check 6 months ago. [place] slightly higher. Discussed potential for ablation. Patient not interested at this time. Continue sotalol continue Xarelto. Anticoagulation management encounter 03/24/2019 Assessment & Plan (03/31/2021 1:03 PM CDT): Xarelto to prevent systemic embolization from the atrial fibrillation. Assessment & Plan (03/14/2021 2:31 PM CDT): High chads Vasc. Continue Xarelto. Assessment & Plan (09/30/2020 2:35 PM TANK SETTER): Xarelto to prevent systemic embolization from the atrial fibrillation. Assessment & Plan (04/12/2020 2:49 PM CDT): Continue Xarelto. Upcoming labs to confirm GFR remains greater than 50 Assessment & Plan (03/25/2020 12:58 PM CDT): Xarelto. Assessment & Plan (10/06/2019 2:46 PM TANK SETTER): Continue Xarelto 20 mg daily Assessment & Plan (03/24/2019 3:33 PM CDT): Xarelto 20 mg q.h.s. Sinus node dysfunction 06/12/2016 Intermittent atrial fibrillation 06/01/2016 Assessment & Plan (03/31/2021 1:01 PM CDT): Underwent cryoablation of the intermittent atrial fibrillation on 01/31/2021. No longer on the sotalol. Remains on the Xarelto to prevent systemic embolization. Assessment & Plan (11/29/2020 2:20 PM TANK SETTER): [place] up to 48% from 33% on last [...] proceed. Assessment & Plan (09/30/2020 2:35 PM TANK SETTER): Sotalol to prevent the recurrence of atrial [...] Minimal. Assessment & Plan (09/29/2020 9:01 PM TANK SETTER): Due to premature supraventricular beats and due [...] 06/01/2016 Assessment & Plan (09/29/2020 9:02 PM TANK SETTER): Long history of symptomatic premature supraventricular beats. [...] recurrence. Assessment & Plan (09/29/2020 9:03 PM TANK SETTER): History of syncope with Lopressor. No recurrence. Assessment & Plan (03/24/2020 8:32 PM CDT): History of syncope with Lopressor. No recurrence. Assessment & Plan (06/15/2019 9:19 PM CDT): History of syncope with Lopressor. No recurrence lately. Hyperlipidemia 06/01/2016 Assessment & Plan (03/30/2021 7:02 PM CDT): Statins are poorly tolerated. Assessment & Plan (09/29/2020 9:00 PM TANK SETTER): Statins are poorly tolerated. Assessment & Plan (03/24/2020 8:32 PM CDT): Statins are poorly tolerated. Assessment & Plan (06/15/2019 9:20 PM CDT): Statins are poorly tolerated. History of permanent cardiac pacemaker placement 06/01/2016 Paroxysmal supraventricular tachycardia 06/01/20 16 Assessment & Plan (09/29/2020 9:02 PM TANK SETTER): Sotalol. Cardizem. Assessment & Plan (03/24/2020 8:33 PM CDT): Cardizem 60 mg p.o. b.i.d.. Assessment & Plan (06/15/2019 9:20 PM CDT): Continue the Cardizem 60 mg p.o. B.i.d. History of syncope 06/01/2016 Status post ablation of atrial fibrillation 05/21 Encounters Date Type Department Care Team Description 04/07/2025 3:15 PM CDT Office Visit [facility] Cardiology [address] [facility] [address] [place] [address] Sultan Corby Jenkins MD Intermittent atrial fibrillation (HCC) (Primary Dx) 03/03/2025 7:45 AM CDT Ancillary Procedure [facility] Cardiology [address] [facility] [address] [place] [address] Sinus node dysfunction (HCC); Paroxysmal atrial fibrillation [...] on file Legal Sex Female 7:34 AM TANK SETTER Gender Identity Not on file Sexual [...] 157.5 cm (5' 2) 10/02/2023 1:20 PM TANK SETTER Body Mass Index 34.39 10/02/2023 1:20 PM TANK SETTER Plan of Treatment Health Maintenance Due Date [...] history exists Medical Devices Implanted Type Area Set Up Machinist Device Identifier Shelf Expiration Date Model / Serial / Lot [employer] C.R.M. Accolade Latitude Nxt Pacesafe Easyview 4.45x5.02cm 2 Chamber Is1 L311 - [id number] Implanted:Qty: 1 on 02/21/2024 by Joseph Gonzalez MD at [facility] [employer] C.R.M. L311 / / Procedures Procedure Name [...] 79 y.o. female This patient has a(n) [employer] dual chamber pacemaker. They had a [...] a tach, longest duration 12 seconds. AT/AF [place] <1% No high ventricular rate episode(s). Comments: Programming appropriate for device measurements. Measured data stable. See attached report. Medications: Anticoagulant(s): n/a Antiarrhythmic(s): atenolol Plan: Remote device checks quarterly, as scheduled. In-office device check scheduled on 06/08/2025. Nicol Kaba RN Joseph Gonzalez MD CV CARDIAC SERVICES [facility] Final Result from Last 3 Months Insurance MEDICARE MEDICARE [facility] MEDICARE SUPPLEMENT Care Teams Annealing Furnace Operator Relationship Specialty Start Date End Date Karma Nayak NP [address] [address] PCP - General Nurse Practitioner 10/02/23 Sultan Corby Jenkins MD [address] [facility] [address] [place] [address] Foundry Hand Cardiology 05/29/19
--- OUTSIDE RECORDS SUMMARY | 2025-05-11 07:06 | XMS_ITS | Encounter Summary ---
Author Organization [facility] Care Team Providers Care Kitchen Help Handyman Name Role Phone Deven Brown MD Primary Care Provider [phone] Joby Lewis DO Primary Care Provider [phone] Sultan Corby Jenkins MD Unavailable [phone] Karma Nayak NP Primary Care Provider Encounter Details Date Type Department Care Team (Latest Contact Info) Description 11/10/2013 Orders Only [facility] CLINCONV Provider, MD [place] [address] [place] [address] Social History Tobacco Use Types Packs/Day Years Used Date Smoking Tobacco: Never Assessed Comments Unknown Sex and Gender Information Value Date Recorded Sex Assigned at Not on file Legal Sex Female 7:34 AM TIRE MECHANIC Gender Identity Not on file Sexual Orientation [...] on filedocumented in this encounter Care Teams Kitchen Help Handyman Relationship Specialty Start Date End Date Deven Brown MD [address] [place] [address] PCP - General Internal Medicine 03/19/19 03/23/19 Joby Lewis DO [address] [place] [address] PCP - General Internal Medicine 03/24/19 10/01/23 Karma Nayak NP [address] [place], [place] [id number] PCP - General Nurse Practitioner 10/02/23 Sultan Corby Jenkins MD [address] [facility] [address] [address] Pan Shaker Cardiology 05/29/19 documented as of this encounter
--- OUTSIDE RECORDS SUMMARY | 2025-05-11 07:06 | XMS_ITS | Encounter Summary ---
Author Organization [facility] Facility Care Team Providers Care Quarter Backer Name Role Phone Deven Brown MD Primary Care Provider [phone] Joby Lewis DO Primary Care Provider Sultan Corby Jenkins MD Unavailable [phone] Karma Nayak NP Primary Care Provider [phone] Encounter Details Date Type Department Care Team (Latest Contact Info) Description 01/26/2016 Orders Only [facility] CLINCONV Provider, MD [place] [address] [place] [address] Social History Tobacco Use Types Packs/Day Years Used Date Smoking Tobacco: Never Assessed Comments Unknown Sex and Gender Information Value Date Recorded Sex Assigned at Not on file Legal Sex Female 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 Gender Identity Not on file Sexual Orientation [...] on filedocumented in this encounter Care Teams Quarter Backer Relationship Specialty Start Date End Date Deven Brown MD [address] [place] [address] PCP - General Internal Medicine 03/19/19 03/23/19 Joby Lewis DO [address] [place] [address] PCP - General Internal Medicine 03/24/19 10/01/23 Karma aNyak NP [address] [place], [place] [id number] PCP - General Nurse Practitioner 10/02/23 Sultan Corby Jenkins MD [address] [facility] [address] [address] Covering Machine Operator Helper Cardiology 05/29/19 documented as of this encounter
--- OUTSIDE RECORDS SUMMARY | 2025-05-11 07:06 | XMS_ITS | Encounter Summary ---
Author Organization [facility] Facility Care Team Providers Care Water Treatment Operator Name Role Phone Deven Brown MD Primary Care Provider [phone] Joby Lewis DO Primary Care Provider Sultan Corby Jenkins MD Unavailable [phone] Karma Nayak NP Primary Care Provider [phone] Encounter Details Date Type Department Care Team (Latest Contact Info) Description 07/20/2015 Orders Only [facility] CLINCONV Provider, MD [place] [address] [place] [address] Social History Tobacco Use Types Packs/Day Years Used Date Smoking Tobacco: Never Assessed Comments Unknown Sex and Gender Information Value Date Recorded Sex Assigned at Not on file Legal Sex Female 7:34 AM ACCOUNT CLERK Gender Identity Not on file Sexual [...] filedocumented in this encounter Care Teams Water Treatment Operator Relationship Specialty Start Date End Date Deven Brown MD [address] [place] [address] PCP - General Internal Medicine 03/19/19 03/23/19 Joby Lewis DO [address] [place] [address] PCP - General Internal Medicine 03/24/19 10/01/23 Karma Nayak NP [address] [facility] 1 [place] [address] PCP - General Nurse Practitioner 10/02/23 Sultan Corby Jenkins MD [address] [facility] [address] [address] Plate Finisher Cardiology 05/29/19 documented as of this encounter
--- OUTSIDE RECORDS SUMMARY | 2025-05-11 07:06 | XMS_ITS | Encounter Summary ---
Author Organization [facility] Address [address] [place] [address] Care Team Providers Care Crystallography Teacher Name Role Phone Sher Nelson MD Primary Care Provider [phone] Encounter Details Date Type Department Care Team (Late st Contact Info) Description 04/22/2024 Lab Requisition [facility] - DermPath Lab [address] [facility] [place] [address] Letitia Mehta MD [address] [facility] [address] [place] [address] Social History Tobacco Use Types Packs/Day Years [...] AM CDT) Case Report Dermatopathology Report Case: [id number] Authorizing Provider: Letitia Mehta MD Collected: 04/22/2024 10:52 AM Ordering Location: [facility] - Received: 04/24/2024 08:33 AM [...] characteristic determined by the Dermatopathology Laboratory at [facility], directed by Dr. Selena Gilman. These tests need not be, and therefore are not, approved by the [place] Food and Drug Administration. The tests are used for clinical purposes. Billing Codes Specimen Charges Stain Charges 12610 1 4 4:42 PM CDT DERMATOPATHOLOGY LABORATORY Embedded Images 4:42 PM CDT DERMATOPATHOLOGY LABORATORY Pathology/Cytolo gy TISSUE SPECIMEN FROM SKIN / Unknown 04/22/2024 10:52 AM CDT 04/24/2024 8:33 AM CDT us Letitia Mehta MD LAB - PATHOLOGY/CYTOLOGY OR DERABLES Final Result DERMATOPATHOLOGY LABORATORY [facility] - Department of Dermatology [address] [phone] documented in this encounter Visit Diagnoses Not on filedocumented in this encounter Care Teams Crystallography Teacher Relationship Specialty [place] [address] [address] PCP - General 10/31/22 documented as of this encounter
--- OUTSIDE RECORDS SUMMARY | 2025-05-11 07:06 | XMS_ITS | Clinical Summary ---
Author Organization [facility] Address [address] [place] [address] Care Team Providers Care Economic Development Director Name Role Phone Sher Nelson MD Primary Care Provider [phone] Source Comments [facility],non-owned Affiliates and Associated Physician Practices is amultiple site organization consisting of ambulatory clinics and hospital sitesin [place], [place], [place] and [place]. This disclosure is being madepursuant to the Care Everywhere program and may not contain all information available regarding this patient. Last updated 18.[facility] Social History Tobacco Use Types Packs/Day Years [...] to complete this topic Insurance MEDICARE MEDICARE [facility] Care Teams Economic Development Director Relationship Specialty [place] [address] [address] PCP - General 10/31/22
--- OUTSIDE RECORDS SUMMARY | 2025-05-11 07:06 | XMS_ITS | Encounter Summary ---
Author Organization [facility] Care Team Providers Care Relationship Banker Name Role Phone Deven Brown MD Primary Care Provider [phone] Joby Lewis DO Primary Care Provider [phone] Sultan Corby Jenkins MD Unavailable [phone] Karma Nayak NP Primary Care Provider [phone] Encounter Details Date Type Department Care Team (Latest Contact Info) Description 06/07/2016 Orders Only [facility] Provider, MD Es[place] [address] [place] [id number] Social History Tobacco Use Types Packs/Day Years Used Date Smoking Tobacco: Never Assessed Comments Unknown Sex and Gender Information Value Date Recorded Sex Assigned at Not on file Legal Sex Female 7:34 AM TALENT REP Gender Identity Not on file Sexual [...] on filedocumented in this encounter Care Teams Relationship Banker Relationship Specialty Start Date End Date Deven Brown MD [address] [place] [address] PCP - General Internal Medicine 03/19/19 03/23/19 Joby Lewis DO [address] [place] [address] PCP - General Internal Medicine 03/24/19 10/01/23 Karma Nayak NP [address] [place], [place] [id number] PCP - General Nurse Practitioner 10/02/23 Sultan Corby Jenkins MD [address] [place] [address] [address] [employer] Cardiology 05/29/19 documented as of this encounter
[2025-05-11 08:18] LABS: Alanine Aminotransferase 24 U/L (6-35); Albumin Level 4.0 g/dL (3.5-5.1); Alkaline Phosphatase 65 U/L (38-126); Anion Gap 7 mmol/L (4-12); Aspartate Amino Transferase 32 U/L (14-36); Bilirubin,Total 0.7 mg/dL (0.2-1.3); Blood Urea Nitrogen 18 mg/dL (7-17); Calcium 9.1 mg/dL (8.4-10.2); Carbon Dioxide 28 mmol/L (22-30); Chloride 104 mmol/L (98-107); Cholesterol 234 mg/dL (0-200); Estimated Glomerular Filt Rate > 60; Glucose 92 mg/dL (65-110); HDL Direct 43 mg/dL; Potassium 3.8 mmol/L (3.4-5.0); Sodium 139 mmol/L (137-145); Total Protein 8.0 g/dL (6.3-8.2); Triglycerides 151 mg/dL (<150)
[2025-05-11 08:19] LABS: Hemoglobin A1C 6.0 % (<5.7)
[2025-05-11 08:32] LABS: Free T3 3.09 pg/mL (2.45-5.93); Free T4 Free Thyroxine 1.56 ng/dL (0.78-2.19)
[2025-05-11 08:53] LABS: Thyroid Stimulating Hormone 0.881 uIU/mL (0.465-4.680)
== END 2025-05-11 07:04 | disposition home or self-care (01) ==
LOC: ANHLAB 07:04
PROVIDERS: PCP Nurse Practitioner Family; Visit Provider Nurse Practitioner Family
DX: R73.03 Prediabetes (principal); R74.8 Abnormal levels of other serum enzymes; C44.311 Basal cell carcinoma of skin of nose; J84.9 Interstitial pulmonary disease, unspecified; G47.33 Obstructive sleep apnea (adult) (pediatric); I49.5 Sick sinus syndrome; I48.91 Unspecified atrial fibrillation; E78.5 Hyperlipidemia, unspecified; E03.9 Hypothyroidism, unspecified
CPT/HCPCS: 36415; 80053; 80061; 83036; 84439; 84443; 84481